=== PATIENT | female | born 1990 | race Caucasian/White ===

== ENCOUNTER 2022-01-21 10:51 | Outpatient (CLI) | payer MEDICAID, SELFPAY ==
--- NOTE | 2022-01-21 11:00 | CRLHL7_ITS ---
For Patients: As a result of the Century Cures Act, medical imaging exams and procedure reports are released immediately into your electronic medical record. You may view this report before your referring provider. If you have questions, please contact your health care provider. INDICATION: Chronic hypertension COMPARISON: 12/06/2021 TECHNIQUE: Real time breaux scale imaging of the fetus was performed. FINDINGS: Sonographic imaging demonstrates a single living intrauterine gestation. Fetus demonstrates a regular cardiac rate of 142 beats per minute. Fetus has a ceferino breech position. The placenta lies left posterior. Amniotic fluid volume appears normal and there is a single deepest vertical pocket: 5.3 cm. The estimated weight is 1241gm which lies at the 46th %. On the prior OB ultrasound exam dated 12/06/2021 the estimated weight was at the 44th%. BPD 43rd percentile. HC 61st percentile. AC 59th percentile. FL 22nd percentile. The HC/AC ratio measures 1.11 range (1.00-1.21). IMPRESSION: Sonographic gestational age 28 weeks 5 days and sonographic due date 04/10/2022. Good correlation with dates. Normal interval growth. Estimated weight 46th percentile. Abdominal circumference 59th percentile. Dictated by Chip Sandoval MD @ 01/21/2022 11:30:14 AM (Electronically Signed)
== END 2022-01-21 10:52 | disposition home or self-care (01) ==
LOC: US 10:52
PROVIDERS: Visit Provider Obstetrics & Gynecology
DX: O16.3 Unspecified maternal hypertension, third trimester (principal); Z3A.28 28 weeks gestation of pregnancy
CPT/HCPCS: 76816; 86592

== ENCOUNTER 2022-02-04 12:07 | Outpatient (CLI) | payer MEDICAID, SELFPAY | END 2022-02-04 12:08 | disposition home or self-care (01) | LOC: NFLDREF 12:07 | PROVIDERS: Visit Provider Registered Nurse | DX: Z87.440 Personal history of urinary (tract) infections (principal) | CPT/HCPCS: 87086 ==

== ENCOUNTER 2022-02-18 07:58 | Outpatient (CLI) | payer MEDICAID, SELFPAY ==
--- NOTE | 2022-02-18 07:45 | CRLHL7_ITS ---
For Patients: As a result of the Century Cures Act, medical imaging exams and procedure reports are released immediately into your electronic medical record. You may view this report before your referring provider. If you have questions, please contact your health care provider. INDICATION: CHRONIC HYPERTENSION TECHNIQUE: Real time breaux scale imaging of the fetus was performed. COMPARISON: 01/21/2022 FINDINGS: Sonographic imaging demonstrates a single living intrauterine gestation. Fetus demonstrates a regular cardiac rate of 142 beats per minute. Fetus has a transverse position. The placenta lies left posterior. Amniotic fluid volume appears normal and there is a single deepest pocket of 3.6 cm. The estimated weight is 1993gm which lies at the 47th %. On the prior OB ultrasound dated 12/06/2021 the estimated weight was at the 44th percentile. BPD 43rd percentile. HC 32nd percentile. AC 47th percentile. FL 56th percentile. The fetus was active and demonstrated normal breathing movements. There was normal flexion and extension of the trunk and extremities. IMPRESSION: Normal biophysical profile score 8/8. Sonographic gestational age 32 weeks 4 days and sonographic due date 04/11/2022. Good correlation with dates and normal interval growth. Estimated weight 47th percentile. Abdominal circumference 47th percentile. Dictated by Chip Sandoval MD @ 02/18/2022 9:20:16 AM (Electronically Signed)
== END 2022-02-18 07:59 | disposition home or self-care (01) ==
LOC: US 07:58
PROVIDERS: Visit Provider Registered Nurse
DX: O10.913 Unspecified pre-existing hypertension complicating pregnancy, third trimester (principal); Z3A.32 32 weeks gestation of pregnancy
CPT/HCPCS: 76816; 76819

== ENCOUNTER 2022-02-23 09:13 | Outpatient (CLI) | payer MEDICAID, SELFPAY ==
--- NOTE | 2022-02-23 09:15 | CRLHL7_ITS ---
For Patients: As a result of the Century Cures Act, medical imaging exams and procedure reports are released immediately into your electronic medical record. You may view this report before your referring provider. If you have questions, please contact your health care provider. INDICATION: CHRONIC HYPERTENSION COMPARISON: 02/18/2022 TECHNIQUE: Real time breaux scale imaging of the fetus was performed. Without non-stress testing. FINDINGS: Sonographic imaging demonstrates a single living intrauterine gestation. Fetus demonstrates a regular cardiac rate of 136 beats per minute. Fetus has a vertex position. The amniotic fluid volume appears normal and there is a single deepest pocket measurement of 4.8 cm. The fetus was active and demonstrated normal breathing movements. There was normal flexion and extension of the trunk and extremities. IMPRESSION: Normal biophysical profile score of 8 out of 8. Dictated by Chip Sandoval MD @ 02/23/2022 11:03:35 AM (Electronically Signed)
== END 2022-02-23 09:14 | disposition home or self-care (01) ==
LOC: US 09:13
PROVIDERS: Visit Provider Registered Nurse
DX: O10.919 Unspecified pre-existing hypertension complicating pregnancy, unspecified trimester (principal)
CPT/HCPCS: 76819

== ENCOUNTER 2022-03-04 09:15 | Outpatient (CLI) | payer MEDICAID, SELFPAY ==
--- NOTE | 2022-03-04 09:15 | CRLHL7_ITS ---
For Patients: As a result of the Century Cures Act, medical imaging exams and procedure reports are released immediately into your electronic medical record. You may view this report before your referring provider. If you have questions, please contact your health care provider. INDICATION: chronic hypertension COMPARISON: 02/23/2022 TECHNIQUE: Real time breaux scale imaging of the fetus was performed. Without non-stress testing. FINDINGS: Sonographic imaging demonstrates a single living intrauterine gestation. Fetus demonstrates a regular cardiac rate of 137 beats per minute. Fetus has a ceferino breech position. The amniotic fluid volume appears normal and there is a single deepest pocket measurement of 4.2 cm. The fetus was active and demonstrated normal breathing movements. There was normal flexion and extension of the trunk and extremities. IMPRESSION: Normal biophysical profile score of 8 out of 8. Dictated by Chip Sandoval MD @ 03/04/2022 12:45:34 PM (Electronically Signed)
== END 2022-03-04 09:16 | disposition home or self-care (01) ==
LOC: US 09:16
PROVIDERS: Visit Provider Registered Nurse
DX: O10.919 Unspecified pre-existing hypertension complicating pregnancy, unspecified trimester (principal)
CPT/HCPCS: 76819

== ENCOUNTER 2022-03-09 09:09 | Outpatient (CLI) | payer MEDICAID, SELFPAY ==
--- NOTE | 2022-03-09 09:15 | CRLHL7_ITS ---
For Patients: As a result of the Century Cures Act, medical imaging exams and procedure reports are released immediately into your electronic medical record. You may view this report before your referring provider. If you have questions, please contact your health care provider. INDICATION: CHRONIC HTN COMPARISON: 02/23/2022 TECHNIQUE: Real time breaux scale imaging of the fetus was performed. Without non-stress testing. FINDINGS: Sonographic imaging demonstrates a single living intrauterine gestation. Fetus demonstrates a regular cardiac rate of 148 beats per minute. Fetus has a ceferino breech position. The amniotic fluid volume appears normal and there is a single deepest pocket measurement of 5.8 cm. The fetus was active and demonstrated normal breathing movements. There was normal flexion and extension of the trunk and extremities. IMPRESSION: Normal biophysical profile score of 8 out of 8. Dictated by Chip Sandoval MD @ 03/09/2022 10:10:23 AM (Electronically Signed)
== END 2022-03-09 09:10 | disposition home or self-care (01) ==
LOC: US 09:10
PROVIDERS: Visit Provider Registered Nurse
DX: O10.919 Unspecified pre-existing hypertension complicating pregnancy, unspecified trimester (principal)
CPT/HCPCS: 76819

== ENCOUNTER 2022-03-17 11:56 | Outpatient (CLI) | payer MEDICAID, SELFPAY ==
--- NOTE | 2022-03-17 12:15 | CRLHL7_ITS ---
For Patients: As a result of the Century Cures Act, medical imaging exams and procedure reports are released immediately into your electronic medical record. You may view this report before your referring provider. If you have questions, please contact your health care provider. OB ULTRASOUND 03/17/2022 CLINICAL HISTORY: Chronic hypertension. ELLIE by LMP: 04/13/2022. GA: 36 w, 1 d. FINDINGS: BIOPHYSICAL PROFILE: Total score: 8/8. Gross body movements: 2. tone: 2. Respiratory activity: 2. Amniotic fluid: 2. position: Vertex. Cervix: Visualized. Amniotic fluid: 4.5 cm SDP. Placenta: Fundal posterior. heart rate: 141 bpm. BPD: 8.7 cm. 34 w 6 d, 24 percent. HC: 32.1 cm. 36 w 1d, 22 percent. AC: 31.1 cm. 35 w 1 d, 30 percent. FL: 6.9 cm. 35 w 4 d, 29 percent. FL/AC: 22 percent. HC/AC Ratio: 1.0. age by this US: 35 w 3 d. ELLIE by this US: 04/18/2022. EFW: 2641 g., 5 lb., 13 oz. Percentile by ELLIE: 29 percent. IMPRESSION: 1. Single live intrauterine gestation. Composite gestational age of 35 weeks 3 days. ELLIE of 04/18/2022. 2. Biophysical profile score 8/8. SISI POON M.D. Transcribed: 7:59 p.m. [email or web address] be/Dictated by: Sisi Poon MD @ 03/17/2022 6:43:00 PM (Electronically Signed)
== END 2022-03-17 11:57 | disposition home or self-care (01) ==
LOC: US 11:56
PROVIDERS: Visit Provider Registered Nurse
DX: O10.913 Unspecified pre-existing hypertension complicating pregnancy, third trimester (principal); Z3A.36 36 weeks gestation of pregnancy
CPT/HCPCS: 76816; 76819; 87081; 87653

== ENCOUNTER 2022-03-25 09:00 | Outpatient (CLI) | payer MEDICAID, SELFPAY ==
--- NOTE | 2022-03-25 09:15 | CRLHL7_ITS ---
For Patients: As a result of the Century Cures Act, medical imaging exams and procedure reports are released immediately into your electronic medical record. You may view this report before your referring provider. If you have questions, please contact your health care provider. INDICATION: CHRONIC HYPERTENSION COMPARISON: none TECHNIQUE: Real time breaux scale imaging of the fetus was performed. Without non-stress testing. FINDINGS: Sonographic imaging demonstrates a single living intrauterine gestation. Fetus demonstrates a regular cardiac rate of 139 beats per minute. Fetus has a vertex position. The amniotic fluid volume appears normal and there is a single deepest pocket measurement of 4.4 cm. The fetus was active and demonstrated normal breathing movements. There was normal flexion and extension of the trunk and extremities. IMPRESSION: Normal biophysical profile score of 8 out of 8. Dictated by Chip Sandoval MD @ 03/25/2022 9:54:41 AM (Electronically Signed)
== END 2022-03-25 09:01 | disposition home or self-care (01) ==
LOC: US 09:01
PROVIDERS: Visit Provider Registered Nurse
DX: O10.919 Unspecified pre-existing hypertension complicating pregnancy, unspecified trimester (principal)
CPT/HCPCS: 76819

== ENCOUNTER 2022-03-30 16:41 | Inpatient (IN) | payer MEDICAID, SELFPAY ==
[2022-03-30] VITALS (11 sets, daily range): BP systolic 106–138; BP diastolic 59–87; PULSE 71–88; RESP 16; TEMP 36.5–36.7; BMI 32.0
[2022-03-30] MEDS: miSOPROStoL 25 MCG/0.25 TABLET VAGINAL ×2 (17:20→21:27)
--- NOTE | 2022-03-30 17:33 | P.LDBA_ITS ---
Subjective History of Present Illness Time Seen by Provider: 17:34 Date Seen: 03/30/22 Narrative: Patient is being admitted to Labor and Delivery for cervical ripening in preparation for induction of labor secondary to chronic hypertension and history of DVT.. She is a 31 year old at 38 1/7 weeks gestation. Her full history and physical was dictated by Dr. Rapp on 03/25/2022. Please see this for details. Last heparin dose was yesterday morning. Patient did not realize she was supposed to take her evening dose last night. Feels well. Fetus is active. OB - H&P: Exam Physical Exam: Vital signs: Pulse BP 79 106/64 03/30/22 16:59 03/30/22 16:59 Constitutional: Constitutional: no acute distress Routine HEENT Exam: Head: Present atraumatic Detailed Labor and Delivery Exam: Patient Gravid: yes Dilation (cm): 2 Effacement (%): 60 Cervix position: posterior Consistency: medium Fetus (Single): Station: -2 (ballotable) Heart Rate Baseline: 130 Monitor Accelerations: Present Monitor Decelerations: None Special Loan Officer Variability: Average (6-10) Routine Extremities Exam: Extremities: Absent calf tenderness or pedal edema Comments: bruising on right upper arm from heparin injections OB - Problem Based A/P Additional Plan (1) Chronic hypertension complicating or reason for care during : Problem details: currently not requiring medications Status: Acute (2) History of DVT (deep vein thrombosis): Problem details: off heparin now Status: Acute Plan: Check coags on admission. Lovenox 40 mg SQ daily beginning 24 hours after delivery, continuing for 6 weeks . (3) H/O rapid labor: Status: Acute (4) History of hemorrhage: Problem details: plan for 800 mcg rectal misoprostol and 1 g TXA after delivery of Status: Acute Delivery/Labor/Induction Plan Plan: induction Induction method: per misoprostol protocol
[2022-03-30 18:00] LABS: Hematocrit 36.1 % (33.0-51.0); Hemoglobin* 12.4 gm/dL (12.0-16.0); Lymphocytes Percent Auto 20.7 % (20-44); Mean Corpuscular HGB Conc 34 gm/dL (32-36); Mean Corpuscular Hemoglobin 31 pg (26-34); Mean Corpuscular Volume 89 fL (80-100); Monocytes Percent Auto 10.3 % (0.0-11.0); Neutrophils Percent Auto 66.8 % (42.0-72.0); Platelet Count* 150 K/uL (140-440); Red Blood Count 4.07 m/uL (4.00-5.20); White Blood Count* 10.72 K/uL (4.50-11.00)
[2022-03-30 18:01] LABS: Basophils Percent Auto 0.3 % (0.0-3.0); Eosinophils Percent Auto 1.5 % (0.0-7.0); Slide Review Reflex No
[2022-03-30 18:05] LABS: Prothrombin Time 12.6 Seconds
[2022-03-30 18:06] LABS: Partial Thromboplastin Time* 23 Seconds (23-33)
[2022-03-30 18:28] LABS: SARS PCR* Negative SARS-CoV-2 (Negative)
[2022-03-31] VITALS (64 sets, daily range): BP systolic 80–182; BP diastolic 47–83; PULSE 61–187; RESP 14–16; TEMP 36.5–36.8; O2SAT 92–100
[2022-03-31] MEDS: miSOPROStoL 25 MCG/0.25 TABLET VAGINAL ×2 (03:52→07:46)
[2022-03-31] MEDS: LACTATED RINGERS 1000 ML 1,000 ML 900 ML IV (10:39)
[2022-03-31] MEDS: ROPIVACAINE 0.2% 100 ml 100 ML 12 MG EPIDURAL (11:12)
[2022-03-31] MEDS: LIDOCAINE 2% (PF) 5 ML VIAL EPIDURAL (11:12)
[2022-03-31] MEDS: PHENYLEPHRINE 100 MCG/ML SYRINGE IVP ×2 (11:25→13:09)
--- NOTE | 2022-03-31 11:25 | PM.ANBPRC ---
[facility] Medical History (Updated 03/30/22 @ 17:44 by Janie Pepe MD) Depression History of DVT (deep vein thrombosis) Family History (Updated 03/25/22 @ 09:51 by Iris Rapp MD) Mother Alcohol dependence Drug dependence Sister Alcohol dependence Drug dependence Social History (Updated 03/25/22 @ 09:55 by Iris Rapp MD) Narrative: Lives in [place] with BF and 1 yo. No smoking, drinking, or ilicit drug use. Smoking Status: Never smoker Meds Home Medications and Allergies Home Medications Medication Instructions Recorded Confirmed Type vitamin 1 tab PO QDAY 01/05/22 03/30/22 History no.76-iron,carbonyl 29 mg iron-folic acid 1 mg tablet (Prenatabs Rx) calcium carbonate 200 mg calcium 200 mg PO BID 02/04/22 03/30/22 History (500 mg) chewable tablet (Tums) Allergies Allergy/AdvReac Type Severity Reaction Status Date / Time No Known Allergies Allergy Verified 03/31/22 09:43 Results Labs Labs: Laboratory Results - last 24 hr 03/30/22 03/30/22 03/30/22 16:51 17:35 17:35 WBC 10.72 RBC 4.07 Hgb 12.4 Hct 36.1 MCV 89 MCH 31 MCHC 34 Plt Count 150 Neut % (Auto) 66.8 Lymph % (Auto) 20.7 Hopkins % (Auto) 10.3 Eos % (Auto) 1.5 Baso % (Auto) 0.3 Neut # (Auto) 7.20 H Lymph # (Auto) 2.20 Hopkins # (Auto) 1.10 H Eos # (Auto) 0.20 Baso # (Auto) 0.00 INR APTT SARS-CoV-2 (PCR) Negative SARS-CoV-2 Blood Type B Positive Antibody Screen NEGATIVE 03/30/22 17:35 WBC RBC Hgb Hct MCV MCH MCHC Plt Count Neut % (Auto) Lymph % (Auto) Hopkins % (Auto) Eos % (Auto) Baso % (Auto) Neut # (Auto) Lymph # (Auto) Hopkins # (Auto) Eos # (Auto) Baso # (Auto) INR 0.90 L APTT 23 SARS-CoV-2 (PCR) Blood Type Antibody Screen Vital Signs Vital Signs: Last Vital Signs Temp 98.2 F 03/31/22 10:04 Pulse 111 H 03/31/22 11:25 Resp 16 03/31/22 10:04 BP 95/47 L 03/31/22 11:25 Pulse Ox 98 03/31/22 11:22 Weight: 107.048 kg Height: 182.88 cm Anesthesia Procedures Epidural Insertion Patient Location: OB Start Time: 10: Stop Time: 11:30 Start Date: 03/31/22 Stop Date: 03/31/22 Reason for Block: primary anesthetic Patient Position: sitting Performed By: Chip Recio Preanesthetic Checklist: IV checked, risks and benefits discussed, surgical consent, monitors and equipment checked, pre-op evaluation, timeout performed and anesthesia consent Prep: chlorhexidine gluconate Monitoring: blood pressure monitoring, continuous pulse oximetry and heart rate Approach: midline Vertebral Space: lumbar (1-5) Needle Type: Tuohy needle Injection Technique: continuous catheter (continuous catheter) Needle gauge: 17 Needle Length (cm): 10 cm Needle Insertion Depth (cm): 6 Catheter Gauge: 19 Catheter Type: multi-orifice Catheter at skin depth (cm): 12 Test Dose Result: negative and lidocaine 1.5% with epinephrine 1 to 200,000
[2022-03-31] MEDS: LACTATED RINGERS 1000 ML 1,000 ML 125 ML IV (12:52)
[2022-03-31] MEDS: miSOPROStoL 800 MCG/4 TABLET PR (13:52)
[2022-03-31] MEDS: OXYTOCIN 30 unit/500 ML in NS 30 UNIT/500 ML BAG 300 UNIT IVPB (13:55)
--- NOTE | 2022-03-31 15:32 | PM.OBPRCVD ---
Procedure Delivery date: 03/31/22 Procedure Done: Global Procedure Details: The patient is a 31 year-old G 2 P 1-0-0-1 woman admitted on 03/30/2022 at 38 Weeks, 1 Days gestation for induction of labor.? Cervical exam on admission was 2 cm/60 % effaced/-2 station with membranes intact in vertex presentation, which was confirmed on ultrasound.? heart rate demonstrated baseline 130 bpm with moderate variability, positive accelerations, no decelerations; a category 1 tracing.? She had 4 doses of 25 mcg vaginal misoprostol, then progressed into labor. SROM occurred at 11:49 a.m. on 03/31/2022 with clear fluid. ? Labor Analgesia:? Epidural ? Pitocin:? No ? Labor onset:? 10:30 a.m. ? Complete:? 1:35 p.m. ? Pushing:? 1:35 p.m. ? heart tones during second stage were reassuring. ? At 1:46 p.m. a viable female delivered in vertex OA presentation with restitution to LOT over intact perineum via spontaneous vaginal delivery.? was placed on maternal abdomen.? Cord was clamped and cut after a 60+ second delay.? Nose and mouth were bulb suctioned.? weight pending.? 8 at 1 minute and 9 at 5 minutes.? weight 6 lb, 4 oz. Shoulder dystocia: No.? Nuchal cord: Yes, x2, loose. Infant delivered through this ? Placenta delivered spontaneously and complete at 1:51 p.m. with a 3 vessel cord. ? Mother and infant were stable after delivery. ? Lacerations:? Superficial left labial, hemostatic and not requiring repair. 800 mcg of rectal misoprostol was placed after delivery of placenta to prevent hemorrhage. Oxytocin was also used. ? Blood loss: 75 mL. Blood loss measurement type: EBL ? Sponge and needles counts are correct.
[2022-03-31] MEDS: ACETAMINOPHEN 500 MG TABLET 1000 MG PO (19:36)
[2022-04-01 05:00] VITALS: BP 126/80; PULSE 71; RESP 16; TEMP 36.5; O2SAT 94
[2022-04-01] MEDS: IBUPROFEN 600 MG TABLET PO (05:24)
[2022-04-01 07:59] LABS: Hemoglobin* 12.4 gm/dL (12.0-16.0)
[2022-04-01 08:45] VITALS: BP 125/80; PULSE 66; RESP 16; TEMP 36.4; O2SAT 97
[2022-04-01] MEDS: DOCUSATE SODIUM 100 MG CAPSULE PO (08:45)
--- NOTE | 2022-04-01 08:56 | P.DS_ITS ---
DS: Providers Provider Time Seen by Provider: 08:57 Date Seen: 04/01/22 Date of admission: 03/30/22 16:41 Primary care physician: Not a Local Provider Admitting Clinician: Janie Pepe MD Attending Physician on discharge: Christie Hernandez CNM Date of Discharge: 04/01/22 Exam Const: Vital Signs, click to edit/add: Vital Signs - 24 hr 03/31/22 10:02 03/31/22 10:04 03/31/22 10:46 Temperature 98.2 F Pulse Rate 93 83 Pulse Rate [Pulse Oximeter] Respiratory Rate 16 Blood Pressure 133/80 127/69 Blood Pressure [Le ft Arm] Pulse Oximetry Oxygen Delivery Me thod 03/31/22 10:56 03/31/22 10:57 03/31/22 10:57 Temperature Pulse Rate Pulse Rate [Pulse Oximeter] Respiratory Rate Blood Pressure 138/71 Blood Pressure [Le ft Arm] Pulse Oximetry 93 94 Oxygen Delivery Me thod 03/31/22 10:57 03/31/22 11:01 03/31/22 11:06 Temperature Pulse Rate 83 Pulse Rate [Pulse Oximeter] Respiratory Rate Blood Pressure Blood Pressure [Le ft Arm] Pulse Oximetry 100 100 Oxygen Delivery Me thod 03/31/22 11:11 03/31/22 11:15 03/31/22 11:15 Temperature Pulse Rate 96 Pulse Rate [Pulse Oximeter] Respiratory Rate Blood Pressure 125/62 Blood Pressure [Le ft Arm] Pulse Oximetry 99 Oxygen Delivery Me thod 03/31/22 11:17 03/31/22 11:17 03/31/22 11:17 Temperature Pulse Rate 116 H Pulse Rate [Pulse Oximeter] Respiratory Rate Blood Pressure 112/54 L Blood Pressure [Le ft Arm] Pulse Oximetry 99 Oxygen Delivery Me thod 03/31/22 11:18 03/31/22 11:20 03/31/22 11:22 Temperature Pulse Rate 101 H 115 H Pulse Rate [Pulse Oximeter] Respiratory Rate Blood Pressure 101/54 L 116/57 L Blood Pressure [Le ft Arm] Pulse Oximetry 98 Oxygen Delivery Me thod 03/31/22 11:22 03/31/22 11:25 03/31/22 11:25 Temperature Pulse Rate 93 111 H Pulse Rate [Pulse Oximeter] Respiratory Rate Blood Pressure 117/60 95/47 L Blood Pressure [Le ft Arm] Pulse Oximetry Oxygen Delivery Me thod 03/31/22 11:26 03/31/22 11:27 03/31/22 11:27 Temperature Pulse Rate 98 Pulse Rate [Pulse Oximeter] Respiratory Rate Blood Pressure 80/48 L Blood Pressure [Le ft Arm] Pulse Oximetry 92 92 Oxygen Delivery Me thod 03/31/22 11:29 03/31/22 11:29 03/31/22 11:31 Temperature Pulse Rate 69 Pulse Rate [Pulse Oximeter] Respiratory Rate Blood Pressure 125/83 119/58 L Blood Pressure [Le ft Arm] Pulse Oximetry Oxygen Delivery Me thod 03/31/22 11:31 03/31/22 11:32 03/31/22 11:34 Temperature Pulse Rate 69 68 Pulse Rate [Pulse Oximeter] Respiratory Rate Blood Pressure 118/56 L 110/53 L Blood Pressure [Le ft Arm] Pulse Oximetry Oxygen Delivery Me thod 03/31/22 11:34 03/31/22 11:40 03/31/22 11:50 Temperature Pulse Rate 82 100 94 Pulse Rate [Pulse Oximeter] Respiratory Rate Blood Pressure 110/56 L 111/56 L Blood Pressure [Le ft Arm] Pulse Oximetry Oxygen Delivery Me thod 03/31/22 11:55 03/31/22 12:00 03/31/22 12:00 Temperature Pulse Rate 80 85 Pulse Rate [Pulse Oximeter] Respiratory Rate Blood Pressure 111/56 L 118/63 Blood Pressure [Le ft Arm] Pulse Oximetry Oxygen Delivery Me thod 03/31/22 12:07 03/31/22 12:07 03/31/22 12:10 Temperature Pulse Rate 68 89 Pulse Rate [Pulse Oximeter] Respiratory Rate Blood Pressure 119/56 L 121/67 Blood Pressure [Le ft Arm] Pulse Oximetry Oxygen Delivery Me thod 03/31/22 12:16 03/31/22 12:16 03/31/22 12:20 Temperature Pulse Rate 90 85 Pulse Rate [Pulse Oximeter] Respiratory Rate Blood Pressure 154/74 H 138/58 L Blood Pressure [Le ft Arm] Pulse Oximetry Oxygen Delivery Me thod 03/31/22 12:25 03/31/22 12:41 03/31/22 12:44 Temperature Pulse Rate 79 75 Pulse Rate [Pulse Oximeter] Respiratory Rate Blood Pressure 132/63 101/56 L 106/58 L Blood Pressure [Le ft Arm] Pulse Oximetry Oxygen Delivery Me thod 03/31/22 12:44 03/31/22 13:07 03/31/22 13:07 Temperature Pulse Rate 74 78 Pulse Rate [Pulse Oximeter] Respiratory Rate Blood Pressure 97/57 L Blood Pressure [Le ft Arm] Pulse Oximetry Oxygen Delivery Me thod 03/31/22 13:13 03/31/22 13:29 03/31/22 13:29 Temperature Pulse Rate 71 90 Pulse Rate [Pulse Oximeter] Respiratory Rate Blood Pressure 122/66 139/63 Blood Pressure [Le ft Arm] Pulse Oximetry Oxygen Delivery Me thod 03/31/22 13:44 03/31/22 13:59 03/31/22 14:17 Temperature Pulse Rate 187 H 86 82 Pulse Rate [Pulse Oximeter] Respiratory Rate Blood Pressure 141/81 H 136/63 182/63 H Blood Pressure [Le ft Arm] Pulse Oximetry Oxygen Delivery Me thod 03/31/22 14:18 03/31/22 14:29 03/31/22 14:44 Temperature Pulse Rate 74 79 75 Pulse Rate [Pulse Oximeter] Respiratory Rate Blood Pressure 129/60 129/61 133/64 Blood Pressure [Le ft Arm] Pulse Oximetry Oxygen Delivery Me thod 03/31/22 14:59 03/31/22 15:14 03/31/22 15:14 Temperature Pulse Rate 66 66 Pulse Rate [Pulse Oximeter] Respiratory Rate Blood Pressure 137/62 139/64 Blood Pressure [Le ft Arm] Pulse Oximetry Oxygen Delivery Me thod 03/31/22 15:29 03/31/22 15:29 03/31/22 15:44 Temperature Pulse Rate 76 Pulse Rate [Pulse Oximeter] Respiratory Rate Blood Pressure 139/64 128/66 Blood Pressure [Le ft Arm] Pulse Oximetry Oxygen Delivery Me thod 03/31/22 15:44 03/31/22 15:59 03/31/22 15:59 Temperature Pulse Rate 76 90 Pulse Rate [Pulse Oximeter] Respiratory Rate Blood Pressure 127/60 Blood Pressure [Le ft Arm] Pulse Oximetry Oxygen Delivery Me thod 03/31/22 17:43 03/31/22 21:08 03/31/22 23:07 Temperature 98.3 F 97.9 F 97.7 F Pulse Rate Pulse Rate [Pulse Oximeter] 86 88 61 Respiratory Rate 16 16 16 Blood Pressure Blood Pressure [Le ft Arm] 128/82 130/79 100/66 Pulse Oximetry 99 97 94 Oxygen Delivery Me thod Room Air Room Air Room Air 04/01/22 05:00 Temperature 97.7 F Pulse Rate Pulse Rate [Pulse Oximeter] 71 Respiratory Rate 16 Blood Pressure Blood Pressure [Le ft Arm] 126/80 Pulse Oximetry 94 Oxygen Delivery Me thod Room Air Documenting provider has reviewed patient's vital signs: yes Common normals: no apparent distress, oriented x3, healthy appearing, alert and well nourished General appearance: cooperative, well kempt and well developed Orientation/consciousness: Yes awake, Yes oriented to person, Yes oriented to place and Yes oriented to time HENMT: Common normals: normocephalic and external nose normal Head and scalp: normocephalic Nose: external nose normal Eye: General eye: normal appearance of both eyes Neck & C-Spine: Common normals: full ROM and supple General: normal visual inspection Cervical spine: cervical ROM normal Chest: Common normals: inspection of chest normal and palpation of chest normal Chest: symmetrical chest wall rise Resp: Common normals: normal respiratory effort, no retractions, no use of accessory muscles and clear to auscultation bilaterally Effort & inspection: able to speak in complete sentences and symmetric chest movement Auscultation: clear to auscultation bilaterally Cardio: Common normals: regular rate and regular rhythm Rate: regular rate Rhythm: regular rhythm GI: Common normals: Normal to inspection, nondistended, normoactive bowel sounds present and soft to palpation Inspection: normal to inspection and other (Incision well approximated, no bleeding or discharge. Dressing [dry]) Auscultation: normoactive bowel sounds Palpation: soft : Bimanual exam- vagina & uterus: other (Involuting) Uterus: U/1 and firm Lochia: small Back & Pelvis: Common normals: thoracic and lumbar spine normal to inspection Thoracic spine/upper back: normal to inspection and thoracic ROM normal Lumbar spine/lower back: normal to inspection and lumbar ROM normal Extremity: Common normals: full ROM and no pedal edema General: normal exam except as noted; no edema ([place], +1) Neuro: Common normals: oriented x3 Sensorium/orientation: awake, alert, oriented to person, oriented to place and oriented to time Speech: speech normal Psych: Common normals: mental status grossly normal, thought process normal and speech normal Appearance: grossly normal and well kempt Attitude: calm and engaged Activity/motor behavior: appropriate eye contact Speech: normal speech Thought process: normal thought process Thought content: normal thought content Attention/concentration: attention grossly intact Memory/cognition: memory grossly intact Insight: insight good Judgement: judgment good Skin: Common normals: no rashes or lesions noted General skin exam: no rashes or lesions noted OB - DS: Summary Hospital Course Hospital Course: Debbi is a 31 year old G 4 now P 2 at 38 1/7 weeks gestation that was admitted to the Center on 03/30/22 for IOL r/t chronic hypertension. She had an uncomplicated vaginal delivery. She delivered a viable female infant. She is breast feeding, pt reports it is going well. the patient has done well. No concerns or questions and would like to go home today. Peripartum Data Infant delivery method: Vaginal Laceration description: Superficial (Left Labial, not repaired) complications: none [place] Infant Gender: Female Discharge Plan: Home Time Spent with Patient Time attestation: Total time spent providing and/or coordinating discharge services: Time spent: Less than 30 minutes Discharge Plan Discharge Disposition: Home, Self-Care Date of Admission: 03/30/22 16:41 Attending Provider on Discharge: Christie Hernandez Primary Care Provider: Provider,Not a Local Condition: Stable Anticipated Discharge Date/Time: 04/01/22 14:00 Discharge Medications: New docusate sodium 100 mg Capsule 100 mg PO DAILY PRNQty: 100 0RF Rx Instructions: Take 1 cap 1-2 times a day as needed for constipation enoxaparin 40 mg/0.4 mL Syringe 40 mg subcut Q24H 42 Days Qty: 16.8 0RF ibuprofen 600 mg Tablet 600 mg PO Q6H PRNQty: 60 0RF acetaminophen 500 mg Tablet 1,000 mg PO Q6H PRNQty: 0 0RF Continued Prenatabs Rx 29 mg iron- 1 mg tablet 1 tab PO QDAY Label Comments: TAKE 1 TABLET BY MOUTH EVERY DAY calcium carbonate [Tums] 200 mg calcium (500 mg) tablet,chewable 200 mg PO BID Discontinued heparin (porcine) 10,000 unit/mL solution 10,000 unit subcut Q12H Qty: 100 0RF Discharge Orders: Discharge Order (Routine); Ordered 04/01/22 Ordered By: Christie Hernandez Patient Education: OB High Blood Pressure DC, OB Vaginal/Breast Feeding Activity Level: Activity as Tolerated Discharge Diet: Regular Follow Up Appointments: [facility] [Provider Group] Forms: [employer] Info Instructions
[2022-04-01 12:55] VITALS: BP 104/70; PULSE 70; RESP 16; TEMP 36.3; O2SAT 97
[2022-04-01 15:50] VITALS: BP 128/85; PULSE 71; RESP 16; TEMP 36.4; O2SAT 97
[2022-04-01] MEDS: ENOXAPARIN 40 MG/0.4 ML INJ SUBCUT (16:08)
== END 2022-04-01 16:40 | disposition home or self-care (01) | DRG 807 ==
LOC: OB OUT 17:04 → OB 17:05
PROVIDERS: Obstetrics & Gynecology; Admitting Provider Obstetrics & Gynecology; Visit Provider Obstetrics & Gynecology
DX: O10.92 Unspecified pre-existing hypertension complicating childbirth (principal); Z37.0 Single live birth; Z86.718 Personal history of other venous thrombosis and embolism; Z3A.38 38 weeks gestation of pregnancy
CPT/HCPCS: 1967; 36415; 59200; 85018; 85025; 85610; 85730; 86850; 86900; 86901; 87635; 99213; A9270; J1650; J2370; J2795; J7120

== ENCOUNTER 2023-05-09 14:49 | Outpatient (CLI) | payer MEDICAID, SELFPAY ==
--- NOTE | 2023-05-09 15:00 | CRLHL7_ITS ---
For Patients: As a result of the Cures Act, medical imaging exams and procedure reports are released immediately into your electronic medical record. You may view this report before your referring provider. If you have questions, please contact your health care provider. INDICATION: First trimester dating. TECHNIQUE: Ultrasound OB pelvis transvaginal. Real-time breaux-scale imaging of the pelvis was performed. COMPARISON: None. FINDINGS: Intrauterine gestational sac: Present. Embryo present: Yes. Embryo cardiac activity: 173 BPM. [place] rump Length: 1.8 cm. Sonographic gestational age: 8 weeks 2 days. Sonographic estimated due date: December 17, 2023. Yolk sac: Normal. Perigestational hemorrhage: Present measuring 15 x 13 x 3 mm. Ovaries and adnexae: Unremarkable. No suspicious lesions or fluid collections. IMPRESSION: Single viable intrauterine with an estimated ultrasound age of 8 weeks 2 days. Small to moderate size subchorionic hemorrhage. No other abnormality. Dictated by Brett Mahoney MD @ 05/10/2023 4:21:24 PM (Electronically Signed)
== END 2023-05-09 14:50 | disposition home or self-care (01) ==
LOC: US 14:49
PROVIDERS: PCP Family Medicine; Visit Provider Registered Nurse
DX: Z34.91 Encounter for supervision of normal pregnancy, unspecified, first trimester (principal); Z3A.08 8 weeks gestation of pregnancy
CPT/HCPCS: 76817; 82565; 82570; 84156; 84450; 84460; 84520; 86703; 86706; 86803; 86850; 86900; 86901; 87086; 87340; 87491; 87591

== ENCOUNTER 2023-05-09 16:08 | Outpatient (CLI) | payer MEDICAID, SELFPAY ==
[2023-05-09 21:48] LABS: Chlamydia DNA Amplified* NOT DETECTED (No Detected); GC DNA Amplified* NOT DETECTED (No Detected)
== END 2023-05-09 16:09 | disposition home or self-care (01) ==
PROVIDERS: PCP Family Medicine; Visit Provider Registered Nurse
DX: Z34.90 Encounter for supervision of normal pregnancy, unspecified, unspecified trimester (principal); Z3A.08 8 weeks gestation of pregnancy
CPT/HCPCS: 82565; 82570; 84156; 84450; 84460; 84520; 86592; 86703; 86704; 86706; 86762; 86787; 86803; 86850; 86900; 86901; 87086; 87340; 87491; 87591

== ENCOUNTER 2023-06-13 13:05 | Outpatient (CLI) | payer MEDICAID, SELFPAY | END 2023-06-13 13:06 | disposition home or self-care (01) | LOC: NFLDREF 13:06 | PROVIDERS: PCP Family Medicine; Visit Provider Obstetrics & Gynecology | DX: Z34.91 Encounter for supervision of normal pregnancy, unspecified, first trimester (principal); Z3A.13 13 weeks gestation of pregnancy; R74.01 Elevation of levels of liver transaminase levels | CPT/HCPCS: 80076; 84450; 84460 ==

== ENCOUNTER 2023-09-26 12:11 | Outpatient (CLI) | payer MEDICAID, SELFPAY ==
--- NOTE | 2023-09-26 12:15 | US_ITS ---
Patient: RON THOMAS Facility:?[facility] Patient ID:?[id number] Site Patient ID:?[id number]. Site :?[id number] Study:?US-OB Pelvis OB F/U-09/26/2023 1:24:32 PM Ordering Physician:Iris Gonzalez Final Report: OB ULTRASOUND CLINICAL HISTORY: CHT, growth. COMPARISON: 08/02/2023. LMP: 03/08/2023. ELLIE by LMP: 12/13/2023. GA: 28 w, 6 d. INDICATION: CHT ? growth. CERVIX: Visualized. Measurement: 4.5 cm. POSITIONING: Breech. AMNIOTIC FLUID: 4.4 cm. PLACENTA: Technique: Transabdominal. PLACENTA POSITION: Posterior, left wall. Biometry: BPD: 6.8 cm. 27 w, 2 d, 4.9%. HC: 26.0 cm. 28 w, 2 d, 7.9%. AC: 23.3 cm. 27 w, 4 d, 11.7%. FL: 5.4 cm. 28 w, 3 d, 24.1%. FL/AC ratio: 23.10%. HC/AC ratio: 1.12. EFW: 1150 g. Weight: 2 lbs, 9 oz. age by this US: 27 w, 6 d. ELLIE by this US: 12/20/2023. Percentile by ELLIE: 11.8%. Comment: Note, BPD measuring in 4.9% and HC 7.9%. However, overall EFW 11.8%. IMPRESSION: 1. Estimated weight is at the 12th percentile. 2. BPD 5th percentile, HC 8th percentile. Anibal Darling M.D. Body/Diagnostic Radiologist [email or web address]/hans D& Transcribed: 10:25 a.mAxel maxwell/Dictated by: Anibal Darling MD @ 09/27/2023 10:16:00 AM Signed by:?Anibal Darling MD @09/27/2023 10:29:25 AM (Electronic Signature)
== END 2023-09-26 12:12 | disposition home or self-care (01) ==
LOC: US 12:11
PROVIDERS: PCP Family Medicine; Visit Provider Obstetrics & Gynecology
DX: Z34.93 Encounter for supervision of normal pregnancy, unspecified, third trimester (principal); Z3A.28 28 weeks gestation of pregnancy; Z86.79 Personal history of other diseases of the circulatory system
CPT/HCPCS: 76816; 86592

== ENCOUNTER 2023-10-02 19:57 | Emergency (ER) | payer MEDICAID, SELFPAY ==
[2023-10-02 20:28] VITALS: BP 135/84; PULSE 83; RESP 16; TEMP 36.8; O2SAT 100; BMI 32.1
--- NOTE | 2023-10-02 20:28 | US_ITS ---
Patient: RON THOMAS Facility:?[facility] Patient ID:?[id number] Site Patient ID:?[id number]. Site :?1990 Study:?US-Extremity Left LEV LT-10/02/2023 9:40:01 PM Ordering Physician:?CEFERINO LOZANO M.D. Final Report: INDICATION: Leg Pain, history of deep venous thrombosis, has similar symptoms TECHNIQUE: Ultrasound venous duplex left lower extremity. Real-time breaux-scale (B mode 2D), color Doppler, and spectral Doppler imaging were performed with compression and augmentation. COMPARISON: None FINDINGS: Deep veins: The left common femoral, femoral, popliteal, and visualized calf veins are fully compressible, demonstrate normal color flow, and normal response to mechanical augmentation. The Duplex Doppler waveforms are normal in appearance. Superficial veins: The visualized greater saphenous and superficial veins of the leg and calf are unremarkable. Soft tissue: No masses or cysts are identified. No adenopathy is seen. IMPRESSION: 1. No sonographic evidence of acute deep venous thrombosis seen. Dictated by: Sidney Knox MD @ 10/02/2023 23:04:13 Signed by:?Sidney Knox MD @10/02/2023 11:04:13 PM (Electronic Signature)
[2023-10-02 23:00] VITALS: BP 133/81; PULSE 76; RESP 16; O2SAT 99
--- NOTE | 2023-10-02 23:31 | ED_ITS ---
HPI - General Adult General Time Seen by Provider: 23:15 Date Seen: 10/02/23 Chief complaint: Lower Extremity Swelling Stated complaint: PCP ref-possible blood clot L leg Time Seen by Provider: 10/02/23 23:19 Source: patient Limitations: no limitations History of Present Illness HPI narrative: Patient is a 32-year-old female who is currently 30 weeks who presents to the emergency department for evaluation of left leg pain. Patient reports history of DVT and is currently on Lovenox daily. Patient reports that she developed some left leg pain since yesterday. Patient describes the pain as an achy sensation in her left posterior lateral thigh as well as a tightness behind her knee. Patient denies any trauma or injury. Patient reports that she wanted to make sure everything was okay given her history of DVTs in the past. Patient denies any lower extremity edema or calf tenderness. Denies any fever, chills, chest pain, shortness of breath, abdominal pain. No other complaints. Related Data Home Medications Medication Instructions Recorded Confirmed vitamin 1 tab PO QDAY 01/05/22 09/26/23 no.76-iron,carbonyl 29 mg iron-folic acid 1 mg tablet (Prenatabs Rx) calcium carbonate (Tums) 200 mg PO BID 06/13/23 09/26/23 Previous Rx's Medication Instructions Recorded ondansetron HCl 4 mg tablet 4 mg PO BID PRN nausea and 03/27/23 vomiting #30 tabs sumatriptan succinate 25 mg tablet See Rx Instructions PO .COMPLEX 03/27/23 #14 tabs enoxaparin 40 mg/0.4 mL 40 mg (0.4 mL) subcut Q24H #4 mL 04/18/23 subcutaneous syringe (Lovenox) mv-mn no.97-folic 180 mcg-dha 25 1 tab PO .q day #90 tabs 07/19/23 mg-herb no.293 25 mg chewable tablet (Alive Daily Support ) omeprazole 20 mg capsule,delayed 20 mg PO QDAY 12 weeks #84 caps 08/29/23 release Allergies Allergy/AdvReac Type Severity Reaction Status Date / Time No Known Allergies Allergy Verified 09/26/23 13:07 Review of Systems Narrative: General: No fevers or chills Skin: No rash or diaphoresis Eyes: No eye redness or discharge Ears/Nose/Throat: No rhinorrhea or nasal congestion Respiratory: No cough or shortness of breath Cardiovascular: No chest pain or palpitations Gastrointestinal: No abdominal pain, nausea, vomiting, or diarrhea Genitourinary: No urinary frequency, hematuria, or dysuria Musculoskeletal: + left leg pain, no edema or calf tenderness Neurologic: No numbness or weakness Hematologic/Lymphatic/Immunologic: No leg swelling, no easy bruising/bleeding Endocrine: No polyuria/polydipsia PFSH PFSH Medical History Miscarriage ?O03.9 - Complete or unspecified spontaneous without complication (ICD-10) History of DVT (deep vein thrombosis) ?Z86.718 - Personal history of other venous thrombosis and embolism (ICD-10) History of hemorrhage ?Z87.59 - Personal history of other complications of , childbirth and the puerperium (ICD-10) Depression ?F32.A - Depression, unspecified (ICD-10) Chronic hypertension complicating or reason for care during ?O10.919 - Unspecified pre-existing hypertension complicating , unspecified trimester (ICD-10) Family History Mother Alcohol dependence Drug dependence Sister Alcohol dependence Drug dependence Social History Narrative: Lives in [place] with BF and 1 yo. No smoking, drinking, or ilicit drug use. Smoking Status: Never smoker Little interest or pleasure in doing things: not at all Feeling down, depressed, or hopeless: not at all Exam Narrative: Exam Narrative: General: Afebrile, no acute distress HEENT: Normocephalic, atraumatic, conjunctiva normal. MMM Neck: non-tender, supple Cardio: regular rate. regular rhythm Resp: Normal work of breathing, no respiratory distress, lungs clear bilaterally, no wheezing, rhonchi, rales Chest/Back: no visual signs of trauma, no CVA tenderness Abdomen: soft, non distension, no tenderness, no peritoneal signs Neuro: alert and fully oriented. CN II-XII grossly intact. Grossly normal strength and sensation in all extremities. MSK: no deformities. Normal range of motion, +TTP posterior/lateral thigh, no mass or bulge behind knee, no calf tenderness, no edema Integumentary/Skin: no rash visualized, normal color Psych: normal affect, normal behavior Const: Vital Signs, click to edit/add: Vital Signs - 24 hr 10/02/23 20:28 Temperature 98.3 F Pulse Rate [Pulse Oximeter] 83 Respiratory Rate 16 Blood Pressure [Le ft Upper Arm] 135/84 Pulse Oximetry 100 Oxygen Delivery Me thod Room Air Course Course ED Course: 32-year-old female past medical history of DVT currently on Lovenox, currently 30 weeks who presents to the emergency department with 1 day history of left leg pain. Patient denies any lower extremity edema, calf tenderness. Differential diagnosis includes but is not limited to musculoskeletal/inflammatory versus DVT versus strain verses popliteal cyst versus less likely cellulitis. Upon arrival patient is nontoxic appearing, afebrile, no distress. I personally reviewed and interpreted ultrasound of the left lower extremity which is unremarkable with no evidence of DVT, no evidence of mass or popliteal cyst. Patient with full range of motion on examination, no evidence of cellulitis, hematoma. I discussed results with patient. Patient feels comfortable discharge home with close outpatient follow-up with her primary care provider in [place]. Patient instructed to have repeat ultrasound in 2 weeks if ongoing pain, swelling, any worsening symptoms. Patient understands and agrees the plan. INDICATION: Leg Pain, history of deep venous thrombosis, has similar symptoms TECHNIQUE: Ultrasound venous duplex left lower extremity. Real-time breaux-scale (B mode 2D), color Doppler, and spectral Doppler imaging were performed with compression and augmentation. COMPARISON: None FINDINGS: Deep veins: The left common femoral, femoral, popliteal, and visualized calf veins are fully compressible, demonstrate normal color flow, and normal response to mechanical augmentation. The Duplex Doppler waveforms are normal in appearance. Superficial veins: The visualized greater saphenous and superficial veins of the leg and calf are unremarkable. Soft tissue: No masses or cysts are identified. No adenopathy is seen. IMPRESSION: 1. No sonographic evidence of acute deep venous thrombosis seen. Vital Signs Vital signs: Initial Vital Signs Temperature 98.3 F 10/02/23 20:28 Temperature Source Temporal Artery Scan 10/02/23 20:28 Pulse Rate 83 10/02/23 20:28 Respiratory Rate 16 10/02/23 20:28 Blood Pressure 135/84 10/02/23 20:28 Blood Pressure Mean 101 10/02/23 20:28 Blood Pressure Position Sitting 10/02/23 20:28 Pulse Oximetry 100 10/02/23 20:28 Oxygen Delivery Method Room Air 10/02/23 20:28 Vital Signs Temperature 98.3 F 10/02/23 20:28 Pulse Rate 83 10/02/23 20:28 Respiratory Rate 16 10/02/23 20:28 Blood Pressure 135/84 10/02/23 20:28 Pulse Oximetry 100 10/02/23 20:28 Oxygen Delivery Method Room Air 10/02/23 20:28 Temperature 98.3 F 10/02/23 20:28 Pulse Rate 83 10/02/23 20:28 Respiratory Rate 16 10/02/23 20:28 Blood Pressure 135/84 10/02/23 20:28 Pulse Oximetry 100 10/02/23 20:28 Oxygen Delivery Method Room Air 10/02/23 20:28 Discharge Plan Discharge Clinical Impression: Left leg pain, , History of DVT (deep vein thrombosis) Patient Disposition: Home, Self-Care Condition: Stable Additional Instructions: Please follow-up with your primary care provider or ob gyn physician assistant in the next 3-5 days for further evaluation and follow-up. Please take Tylenol as needed for pain. If you continue to have pain, swelling, would recommend repeat ultrasound in 2 weeks. Please return to the emergency department if any worsening symptoms, severe pain, swelling, fevers. It was a pleasure taking care of you today. We hope you feel better soon Prescriptions: No Action Prenatabs Rx 29 mg iron- 1 mg tablet 1 tab PO QDAY Patient Comments: TAKE 1 TABLET BY MOUTH EVERY DAY sumatriptan succinate 25 mg tablet See Rx Instructions PO .COMPLEX Qty: 14 12RF Rx Instructions: take 1 tab at onset of headache; if no relief may repeat 1 tab after at least 2 hrs; max = 4 tabs/24 hr PO ondansetron HCl 4 mg tablet 4 mg PO BID PRN (Reason: nausea and vomiting) Qty: 30 1RF Rx Instructions: disp odt if covered calcium carbonate [Tums] 200 mg calcium (500 mg) tablet,chewable 200 mg PO BID Alive Daily Support 180 mcg-25 mg- 25 mg tablet,chewable 1 tab PO .q day Qty: 90 3RF omeprazole 20 mg capsule,delayed release(DR/EC) 20 mg PO QDAY 84 Days Qty: 84 0RF enoxaparin [Lovenox] 40 mg/0.4 mL syringe 40 mg subcut Q24H Qty: 4 12RF Follow Up/Referrals: Celena Mccabe MD [Primary Care Provider] - Stand Alone Forms: [employer]™ Interactive Info Instructions
--- OUTSIDE RECORDS SUMMARY | 2023-10-02 23:31 | XMS_ITS | Encounter Summary ---
Author Name Unknown Organization [facility] Address [address] [place] [id number] Care Team Providers Care Co Founder & Ceo Name Role Phone No Ref-Primary, Physician Primary Care Provider Reason for Referral * (Routine) - Closed Specialty Diagnoses / Procedures Referred By Contac t Referred To Contact Cardiology Diagnoses Personal history of DVT (deep vein thrombosis) Chronic hypertension History of deep venous thrombosis Procedures Echo (TTE) Complete Amado Chester MD [address] [address] [facility] [address] [place] [phone] Referral ID Status Reason Start Date Expiration Date Visits Re quested Visits Authorized [id number] Closed 07/18/2023 07/17/2024 1 1 REPAIRER Reason for Visit * (Routine) - Closed Specialty Diagnoses / Procedures Referred By Contac t Referred To Contact Cardiology Diagnoses Personal history of DVT (deep vein thrombosis) Chronic hypertension History of deep venous thrombosis Procedures Echo (TTE) Amado Toscano MD [address] [place] [id number] [facility] [address] [place] [phone] Referral ID Status Reason Start Date Expiration Date Visits Re quested Visits Authorized [id number] Closed 07/18/2023 07/17/2024 1 1 Encounter Details Date Type Department Care Team (Latest Contact Info) Description 08/02/2023 10:44 AM SAIL REPAIRER - 08/02/2023 11:59 PM SAIL REPAIRER Hospital Encounter [facility] [address] [place] [phone] Amado Chester MD [address] [place] [address] Urmfmusfet History of deep venous thrombosis Discharge Disposition: Home or Self Care Social History Tobacco Use Types Packs/Day Years Used Date Smoking Tobacco: Never Assessed Adolescent Education Answer Date Record ed Getting School Help Needed Not on file 06/14 Estimated Date of Delivery Comme nts Yes 12/13/2023 Based on last me nstrual period of 03/08/2023 Sex and Gender Information Value Date Recorded Sex Assigned at Not on file Gender Identity Not on file Sexual Orientation Not on file documented as of this encounter Medications at Time of Discharge Medication Sig Dispensed Refills Start Date End Date aspirin 81 MG EC tablet Take 81 mg by mouth daily enoxaparin ANTICOAGULANT (LOVENOX) 40 MG/0.4ML syringe Inject 40 mg Subcutaneous daily Vit-Fe Fumarate-FA (PNV PLUS MULTIVITAMIN) 27-1 MG TABS per tablet Take 1 tablet by mouth daily documented as of this encounter Consult Notes * Riana Hampton MBBS - 08/02/2023 1:23 PM CST [facility] Cardiology Consult Patient: Ron Sears Date of : 1990 Age: [age] year old Date of Visit: 08/02/2023 PCP: No Ref-Primary, Physician Due Date: Dec 13, 2023 Delivery: Dear Dr. Mg I had the opportunity to meet with Ron today for a Cardiology Consult and Echocardiography at the [facility] on 08/02/2023 Echo demonstrated :Normal cardiac anatomy. Normal right and left ventricular size and function. heart rate is regular at 152 bpm.No hydrops. I have reviewed the Echo findings. The parents had appropriate questions. I did my best to answer their questions. Plan: The results of the echocardiogram were explained to the patient. She is aware that the study was within normal limits with no major cardiac abnormalities. She is aware of the general limitations of echocardiography. Thank you for allowing me to participate in Ron's care. Feel free to contact me with questions. I spent 10 minutes counseling the patient about her echocardiogram findings. All of this timewas face to face. Dr Riana Hampton [employer] Repairer [facility] REPAIRER documented in this encounter Plan of Treatment Not on file documented as of this encounter Procedures Procedure Name Priority Date/Time Associated Diagnosis Comments ECHO COMPLETE Routine 08/02/2023 1 2:01 PM SAIL REPAIRER History of deep venous thrombosis documented in this encounter Results * ECHO COMPLETE (08/02/2023 12:01 PM SAIL REPAIRER) Anatomical Region Laterality Modality Ultrasound 08/02/2023 10:5 1 AM SAIL REPAIRER Narrative 08/02/2023 11:39 AM SAIL REPAIRER [id number]^AMADO ? Study ID: [id number] ?[facility] ?[facility] ?[address] ?[place] [address] ? Echocardiogram Name: RON SEARS Study Date: 08/02/2023 10:51 AM ? Patient Location: [facility] Gender: Female ?Patient Class: Outpatient : 1990 ? Age: 32 yrs Ordering Provider: AMADO CHESTER Referring Provider: CARMELITA MG Performed By: Markus Castle RDCS Reading Physician: Riana Hampton MD Reason For Study: History of deep venous thrombosis Data: Number of fetuses: This is a carrizales gestation. Due date: 12/13/2023. Gestational age: 21w. Specific Indication: echocardiogram performed for fetus with suspected congenital heart disease. CONCLUSIONS Normal cardiac anatomy. Normal right and left ventricular size and function. heart rate is regular at 152 bpm.No hydrops. No additional echocardiograms are recommended. The results of the echocardiogram were explained to the patient. She is aware that the study was within normal limits with no major cardiac abnormalities. She is aware of the general limitations of echocardiography. Technical Information: A complete two dimensional, MMODE, spectral and color Doppler echocardiogram is performed. The study quality is good. position and segmental anatomy: The fetus in vertex position. The heart is in left chest. The cardiac apex points towards the left. There is normal atrial arrangement, with concordant atrioventricular and ventriculoarterial connections. The abdominal aorta is to the left of the spine. There is a left sided stomach. Systemic and pulmonary veins: The systemic venous return is normal. At least one right and one left pulmonary veins are seen returning to the left atrium. Atria and atrial septum: Normal right atrial size. The left atrium is normal in size. The flap of the foramen ovale opens in to the left atrium. There is laminar cemkd-bn-pyow shunting across the foramen ovale. Atrioventricular valves: The tricuspid valve is normal in appearance and motion. There is no tricuspid insufficiency. The mitral valve is normal in appearance and motion. There is no mitral valve insufficiency. Ventricles and ventricular septum: Normal right ventricular size. Normal right ventricular systolic function. Normal left ventricular size. Normal left ventricular systolic function. No obvious ventricular level shunting. Outflows tracts: Normal great artery relationship. The right ventricular outflow tract is normal in caliber. The pulmonary valve has normal appearance and motion. There is normal flow across the pulmonary valve. There is unobstructed flow through the left ventricular outflow tract. The aortic valve has normal appearance and motion. There is normal flow across the aortic valve. Great arteries: The main pulmonary artery has normal appearance. There is unobstructed flow in the main pulmonary artery. The pulmonary artery bifurcation is normal. There is unobstructed flow in both branch pulmonary arteries. The ductus arteriosus has normal appearance with normal antegrade flow. There is unobstructed antegrade flow in the ascending aorta. The aortic arch appears normal. There is unobstructed antegrade flow in the aortic arch. Effusions and extracardiac findings: No pericardial effusion. No hydrops. cardiac rhythm: heart rate is regular at 152 bpm. Doppler: There is normal flow in the ductus venosus, umbilical artery and umbilical vein. echocardiography cannot rule out small atrial or ventricular septal defects, persistent ductus arteriosus, mild coarctation of the aorta, partial anomalous pulmonary venous return, minor anatomic valve anomalies or coronary artery anomalies. Reading Physician: ?Riana Hampton MD 08/02/2023 11:39 AM Procedure Note Riana Hampton MBBS - 08/02/2023 [id number] Study ID:[id number] [facility] [address] [address] Echocardiogram Name: RON SEARS Study Date: 08/02/2023 10:51 AM Patient Location:[facility] Gender: Female Patient Class:Outpatient : 1990 Age: 32 yrs Ordering Provider: AMADO CHESTER Referring Provider: CARMELITA MG Performed By: Markus Castle RDCS Reading Physician: Riana Hampton MD Reason For Study: History of deep venous thrombosis Data: Number of fetuses: This is a carrizales gestation. Duedate: 12/13/2023. Gestational age: 21w. Specific Indication: echocardiogram performed for fetus with suspected congenital heart disease. CONCLUSIONS Normal cardiac anatomy. Normal right and left ventricular size and function. heart rate is regular at 152 bpm.No hydrops. No additional echocardiograms are recommended. The results of thefetal echocardiogram were explained to the patient. She is aware that the studywas within normal limits with no major cardiac abnormalities. She is aware ofthe general limitations of echocardiography. Technical Information: A complete two dimensional, MMODE, spectral and color Doppler echocardiogram is performed. The study quality is good. position and segmental anatomy: The fetus in vertex position. The heart is in left chest. The cardiacapex points towards the left. There is normal atrial arrangement, withconcordant atrioventricular and ventriculoarterial connections. The abdominal aortais to the left of the spine. There is a left sided stomach. Systemic and pulmonary veins: The systemic venous return is normal. At least one right and one left pulmonary veins are seen returning to the left atrium. Atria and atrial septum: Normal right atrial size. The left atrium is normal in size. The flap ofthe foramen ovale opens in to the left atrium. There is elbtsjkzhycb-fr-ljpr shunting across the foramen ovale. Atrioventricular valves: The tricuspid valve is normal in appearance and motion. There is notricuspid insufficiency. The mitral valve is normal in appearance and motion. Thereis no mitral valve insufficiency. Ventricles and ventricular septum: Normal right ventricular size. Normal right ventricular systolicfunction. Normal left ventricular size. Normal left ventricular systolic function.No obvious ventricular level shunting. Outflows tracts: Normal great artery relationship. The right ventricular outflow tract is normal in caliber. The pulmonary valve has normal appearance and motion.There is normal flow across the pulmonary valve. There is unobstructed flowthrough the left ventricular outflow tract. The aortic valve has normal appearanceand motion. There is normal flow across the aortic valve. Great arteries: The main pulmonary artery has normal appearance. There is unobstructedflow in the main pulmonary artery. The pulmonary artery bifurcation is normal.There is unobstructed flow in both branch pulmonary arteries. The ductusarteriosus has normal appearance with normal antegrade flow. There is unobstructed antegrade flow in the ascending aorta. The aortic arch appears normal.There is unobstructed antegrade flow in the aortic arch. Effusions and extracardiac findings: No pericardial effusion. No hydrops. cardiac rhythm: heart rate is regular at 152 bpm. Doppler: There is normal flow in the ductus venosus, umbilical artery andumbilical vein. echocardiography cannot rule out small atrial or ventricularseptal defects, persistent ductus arteriosus, mild coarctation of the aorta,partial anomalous pulmonary venous return, minor anatomic valve anomalies orcoronary artery anomalies. Reading Physician: Riana Hampton MD 08/02/2023 11:39 AM Amado Chester MD [facility] PEDS ECHO ORDERAB LES documented in this encounter Visit Diagnoses Diagnosis History of deep venous thrombosis Personal history of venous thrombosis and embolism documented in this encounter Care Teams Co Founder & Ceo Relationship Specialty Start Date End Date No Ref-Primary, Physician PCP - General 06/15/23 documented as of this encounter
--- OUTSIDE RECORDS SUMMARY | 2023-10-02 23:31 | XMS_ITS | Referral Summary ---
Author Name Unknown Organization [facility] Address [address] [place] [id number] Care Team Providers Care Tube Bender Hand Name Role Phone No Ref-Primary, Physician Primary Care Provider Amado Chester MD Unavailable [phone] Encounters Date Type Department Care Team Description 08/02/2023 Travel 08/02/2023 2:00 PM APPAREL EMBROIDERY DIGITIZER Office Visit [facility] [place] [address] [place] [phone] Amado Chester MD Suspected anomaly, antepartum, single or unspecified fetus (Primary Dx); Personal history of DVT (deep vein thrombosis); Chronic hypertension in ; History of deep vein thrombosis (DVT) during 08/02/2023 10:44 AM APPAREL EMBROIDERY DIGITIZER - 08/02/2023 11:59 PM APPAREL EMBROIDERY DIGITIZER Hospital Encounter [facility] [place] [address] [place] [phone] Amado Chester MD History of deep venous thrombosis Discharge Disposition: Home or Self Care 08/02/2023 10:44 AM APPAREL EMBROIDERY DIGITIZER - 08/02/2023 11:59 PM APPAREL EMBROIDERY DIGITIZER Hospital Encounter [facility] [address] [place] [phone] Amado Chester MD Urmfmusfet History of deep venous thrombosis Discharge Disposition: Home or Self Care 07/26/2023 Travel 07/18/2023 Travel 07/18/2023 10:42 AM APPAREL EMBROIDERY DIGITIZER - 07/18/2023 11:59 PM APPAREL EMBROIDERY DIGITIZER Hospital Encounter [facility] [place] [address] [place] [phone] Amado Chester MD Personal history of DVT (deep vein thrombosis) Discharge Disposition: Home or Self Care 07/18/2023 11:45 AM APPAREL EMBROIDERY DIGITIZER Office Visit [facility] [place] [address] [place] [address] Amado Chester MD Chronic hypertension in (Primary Dx); History of deep venous thrombosis; History of deep vein thrombosis (DVT) during ; Suspected anomaly, antepartum, single or unspecified fetus 07/17/2023 Travel 07/11/2023 Travel 07/10/2023 PRE VISIT [facility] [address] [place] [address] Dory Franco RN Ultrasound (L2- Hx DVT/Embolism, CHTN, Anx/Dep, Hx PPH); Consult (Hx DVT/Embolism, CHTN, Anx/Dep, Hx PPH) from Last 3 Months Allergies No known active allergies Medications Medication Sig Dispensed Refills Start Date End Date Status enoxaparin ANTICOAGULANT (LOVENOX) 40 MG/0.4ML syringe Inject 40 mg Subcutaneous daily Active aspirin 81 MG EC tablet Take 81 mg by mouth daily Active Vit-Fe Fumarate-FA (PNV PLUS MULTIVITAMIN) 27-1 MG TABS per tablet Take 1 tablet by mouth daily Active Active Problems Problem Noted Date Diagnosed Date Chronic hypertension 07/18/2023 History of deep venous thrombosis 07/18/2023 Estimated Date of Delivery Comme nts Yes 12/13/2023 Based on last me nstrual period of 03/08/2023 Social History Tobacco Use Types Packs/Day Years Used Date Smoking Tobacco: Never Assessed Tobacco Cessation:Counseling Given: Not Answered Adolescent Education Answer Date Record ed Getting School Help Needed Not on file 06/14 Estimated Date of Delivery Comme nts Yes 12/13/2023 Based on last me nstrual period of 03/08/2023 Sex and Gender Information Value Date Recorded Sex Assigned at Not on file Gender Identity Not on file Sexual Orientation Not on file Last Filed Vital Signs Vital Sign Reading Time Taken Comments Blood Pressure 119/82 07/18/2023 12:05 PM APPAREL EMBROIDERY DIGITIZER Pulse 78 07/18/2023 12:05 PM APPAREL EMBROIDERY DIGITIZER Temperature - - Respiratory Rate 18 07/18/2023 12:05 PM APPAREL EMBROIDERY DIGITIZER Oxygen Saturation 99% 07/18/2023 12:05 PM APPAREL EMBROIDERY DIGITIZER Inhaled Oxygen Concentration - - Weight 105.5 kg (232 lb 8 oz) 07/18/2023 12:05 P M APPAREL EMBROIDERY DIGITIZER Height 180.3 cm (5' 11) 07/18/2023 12:05 PM APPAREL EMBROIDERY DIGITIZER Body Mass Index 32.43 07/18/2023 12:05 PM APPAREL EMBROIDERY DIGITIZER Plan of Treatment Not on file Procedures Procedure Name Priority Date/Time Associated Diagnosis Comments [facility] US COMPREHENSIVE SINGLE F/U Routine 08/02/2023 12:04 PM APPAREL EMBROIDERY DIGITIZER History of deep venous thrombosis ECHO COMPLETE Routine 08/02/2023 1 2:01 PM APPAREL EMBROIDERY DIGITIZER History of deep venous thrombosis [facility] US COMPREHENSIVE SINGLE Routine 07/18/2023 12:31 PM APPAREL EMBROIDERY DIGITIZER Personal history of DVT (deep vein thrombosis) HCL PAP SMEAR Routine 11/04/1998 1:18 PM CDT Gynecologic Examination from Last 3 Months or Most Recently Relevant to Health Maintenance Results * [facility] US Comprehensive Single F/U (08/02/2023 12:04 PM APPAREL EMBROIDERY DIGITIZER) Anatomical Region Laterality Modality Ultrasound 08/02/2023 11:4 0 AM APPAREL EMBROIDERY DIGITIZER Impressions 08/02/2023 3:43 PM APPAREL EMBROIDERY DIGITIZER IMPRESSION ----- 1. Carrizales intrauterine at 21w 0d gestational age here for completion of anatomy. 2. The remaining anatomic survey was completed, no anomalies commonly detected by ultrasound were identified within the limits of ultrasound. 3. The amniotic fluid volume appeared normal. Narrative 08/02/2023 3:43 PM APPAREL EMBROIDERY DIGITIZER ?Comp Follow Up ----- Pat. Name: RON SEARS ? Study Date: ??08/02/2023 11:40am Pat. NO: ??[id number] ?Referring ??MD: CARMELITA MG Site: ??[facility] ? Em Physician: ??Jackie Mccarthy [facility] : ??1990 ?Age: ?? 32 ----- INDICATION ----- History of DVT and embolism. Chronic hypertension. Follow-up suboptimal anatomy. METHOD ----- Transabdominal ultrasound examination. View: Sufficient ----- Carrizales . Number of fetuses: 1 DATING ----- ? Date ?Details ?Gest. age ?ELLIE LMP ?03/08/2023 ? 21 w + 0 d ? 12/13/2023 Prior assessment ? 05/09/2023 ? GA: 8 w + 2 d ? 20 w + 3 d ? 12/17/2023 Assigned dating ?Dating performed on 07/18/2023, based on the LMP ?21 w + 0 d ? 12/13/2023 GENERAL EVALUATION ----- Cardiac activity present. FHR 148 bpm. movements present. Presentation cephalic. Placenta Posterior, No Previa, > 2 cm from internal os. Umbilical cord previously studied. Amniotic fluid Amount of AF: normal. MVP 3.9 cm. ANATOMY ----- The following structures appear normal: Face ? Lips. Heart / Thorax ?4-chamber view. RVOT view. LVOT view. Ductal arch view. 3-vessel view. Spine ?Lumbar spine. Sacral spine. Extremities / Skeleton ?Right hand. Left hand. Gender: female. MATERNAL STRUCTURES ----- Cervix ?Suboptimal Right Ovary ?Not examined Left Ovary ?Not examined RECOMMENDATION ----- Thank-you for referring your patient for ultrasound assessment. I discussed the findings on today's ultrasound with the patient. I reviewed the limitations of ultrasound. She also had a echocardiogram today with pediatric cardiology which was normal (please see separate report for full details). Please refer to our consult note from 07/18 for full recommendations on management - recommend assessment of growth every 4 weeks starting at 28 weeks in addition to weekly surveillance starting at 32 weeks should she require antihypertensive agents for management of her chronic hypertension. We presume this follow-up can be performed with your office. Return to primary provider for continued care. If you have questions regarding today's evaluation or if we can be of further service, please contact the [facility]. anomalies may be present but not detected Procedure Note Amado Chester MD - 08/02/2023 Comp Follow Up ----- Pat. Name: RON SEARS Study Date: 08/02/2023 11:40am Pat. NO: [id number] Referring MD: CARMELITA MG Site: [facility] Em Physician: Jackie Mccarthy RDMS : 1990 Age: 32 ----- INDICATION ----- History of DVT and embolism. Chronic hypertension. Follow-up suboptimalanatomy. METHOD ----- Transabdominal ultrasound examination. View: Sufficient ----- Carrizales . Number of fetuses: 1 DATING ----- DateDetailsGest. age ELLIE LMP w + 0 d 12/13/2023 Prior assessment 05/09/2023 GA: 8 w +2 d20 w + 3 d 12/17/2023 Assigned dating Dating performed on 07/18/2023, based onthe LMP 21 w+ 0 d 12/13/2023 GENERAL EVALUATION ----- Cardiac activity present. FHR 148 bpm. movements present. Presentation cephalic. Placenta Posterior, No Previa, > 2 cm from internal os. Umbilical cord previously studied. Amniotic fluid Amount of AF: normal. MVP 3.9 cm. ANATOMY ----- The following structures appear normal: Face Lips. Heart / Thorax 4-chamber view. RVOT view. LVOT view.Ductal arch view. 3-vessel view. Spine Lumbar spine. Sacral spine. Extremities / Skeleton Right hand. Left hand. Gender: female. MATERNAL STRUCTURES ----- Cervix Suboptimal Right Ovary Not examined Left Ovary Not examined RECOMMENDATION ----- Thank-you for referring your patient for ultrasound assessment. I discussed the findings on today's ultrasound with the patient. Ireviewed the limitations of ultrasound. She also had a fetalechocardiogram today with pediatric cardiology which was normal (please see separate report for full details). Please refer to our consult note from 07/18 for full recommendations onpregnancy management - recommend assessment of growth every 4 weeksstarting at 28 weeks in addition to weekly surveillance starting at 32 weeks mina require antihypertensive agents for management of her chronichypertension. We presume this follow-up can be performed with your office. Return to primary provider for continued care. If you have questions regarding today's evaluation or if we can be offurther service, please contact the [facility]. anomalies may be present but not detected IMPRESSION ----- 1. Carrizales intrauterine at 21w 0d gestational age here forcompletion of anatomy. 2. The remaining anatomic survey was completed, no anomaliescommonly detected by ultrasound were identified within the limits ofprenatal ultrasound. 3. The amniotic fluid volume appeared normal. Amado LEIVA [facility] US ORDERABLE S * ECHO COMPLETE (08/02/2023 12:01 PM APPAREL EMBROIDERY DIGITIZER) Anatomical Region Laterality Modality Ultrasound 08/02/2023 10:5 1 AM APPAREL EMBROIDERY DIGITIZER Narrative 08/02/2023 11:39 AM APPAREL EMBROIDERY DIGITIZER [id number]^HENRIK^AMADO ? Study ID: [id number] ?[facility] ?[facility] [place] ?[address] ?[place] [address] ? Echocardiogram Name: RON SEARS Study Date: 08/02/2023 10:51 AM ? Patient Location: [facility] Gender: Female ?Patient Class: Outpatient : 1990 [...] to the left atrium. There is laminar gkqik-yl-lkgz shunting across the foramen ovale. Atrioventricular valves: [...] Procedure Note Riana Hampton MBBS - 08/02/2023 [id number] Study ID:[id number] [facility] [place] [address] Echocardiogram Name: RON SEARS Study Date: 08/02/2023 10:51 AM Patient Location:[facility] Gender: Female Patient Class:Outpatient : 1990 Age: [...] in to the left atrium. There is fgbhafaebqtx-ow-srul shunting across the foramen ovale. Atrioventricular valves: [...] Chester MD CV PEDS ECHO ORDERAB LES * [facility] US Comprehensive Single (07/18/2023 12:31 PM APPAREL EMBROIDERY DIGITIZER) Anatomical Region Laterality Modality Ultrasound 07/18/2023 10:4 9 AM APPAREL EMBROIDERY DIGITIZER Impressions 07/18/2023 4:50 PM APPAREL EMBROIDERY DIGITIZER IMPRESSION ----- 1. Carrizales intrauterine at 18w 6d gestational age here for evaluation of anatomy. 2. The three vessel view is abnormal with the aorta appearing larger than the pulmonary artery and abnormal position of the SVC in relation to the other two great vessels displaced posteriorly and rightward. 3. No other anomalies commonly detected by ultrasound or soft markers of aneuploidy were identified in the detailed anatomic survey within the limits of ultrasound, however some views were suboptimal, as described above. 4. Growth parameters and estimated weight were consistent with established dates. 5. The amniotic fluid volume appeared normal. 6. On transabdominal imaging the cervix appears long and closed. Narrative 07/18/2023 4:50 PM APPAREL EMBROIDERY DIGITIZER ?Comprehensive ----- Pat. Name: RON SEARS ? Study Date: ??07/18/2023 10:49am Pat. NO: ??[id number] ?Referring ??: CARMELITA MG Site: ??[facility] ? Em Physician: Caroline Azar RDMS : ??1990 ?Age: ?? 32 ----- INDICATION ----- History of DVT and embolism. Chronic hypertension. METHOD ----- Transabdominal ultrasound examination ----- Carrizales . Number of fetuses: 1 DATING ----- ? Date ?Details ?Gest. age ?ELLIE LMP ?03/08/2023 ? 18 w + 6 d ? 12/13/2023 Prior assessment ? 05/09/2023 ? GA: 8 w + 2 d ? 18 w + 2 d ? 12/17/2023 U/S ? 07/18/2023 ?based upon AC, BPD, Femur, HC ? 18 w + 0 d ? 12/19/2023 Assigned dating ?Dating performed on 07/18/2023, based on the LMP ?18 w + 6 d ? 12/13/2023 GENERAL EVALUATION ----- Cardiac activity present. FHR 154 bpm. movements present. Presentation breech. Placenta Posterior, No Previa, > 2 cm from internal os. Umbilical cord 3 vessel cord. Amniotic fluid Amount of AF: normal. MVP 3.7 cm. BIOMETRY ----- Main Biometry: BPD ?35.9 ?mm ? 17w 0d ?Hadlock OFD ?54.2 ?mm ? 18w 0d ?Nicolaides HC ?146.4 ?mm ?17w 6d ?Hadlock Cerebellum tr ?18.4 ? mm ?18w 1d ?Nicolaides AC ?127.4 ?mm ?18w 2d ?28% ?Hadlock Femur ?27.9 ? mm ?18w 4d ?Hadlock Humerus ?26.1 ?mm ? 18w 1d ?Felecia Weight Calculation: EFW ? 234 ? g ? 18% ?Hadlock EFW (lb,oz) ? 0 lb 8 ?oz EFW by ?Hadlock ([id number]) Head / Face / Neck Biometry: Hide Spreader ? 6.1 ? mm CM ?4.4 ? mm Nasal bone ? 5.0 ? mm Nuchal fold ? 4.0 ? mm ANATOMY ----- The following structures appear abnormal: Heart / Thorax ?3-vessel view. The following structures appear normal: Head / Neck ? Cranium. Head size. Head shape. Lateral ventricles. Choroid plexus. Midline falx. Cavum septi pellucidi. Cerebellum. Cisterna magna. ? Parenchyma. Thalami. Vermis. ? Neck. Nuchal fold. Face ? Profile. Nose. Maxilla. Mandible. Orbits. Lens. Heart / Thorax ?Situs. Aortic arch view. Bicaval view. Superior vena cava. Inferior vena cava. 3-mnztja-fzdfila view. Cardiac position. Cardiac size. Cardiac ? rhythm. ? Right lung. Left lung. Diaphragm. Abdomen ? Abdominal wall. Cord insertion. Stomach. Kidneys. Bladder. Liver. Bowel. Genitals. Spine ?Cervical spine. Thoracic spine. Extremities / Skeleton ?Right arm. Left arm. Right leg. Right foot. Left leg. Left foot. The following structures could not be adequately visualized: Face ? Lips. Heart / Thorax ?4-chamber view. RVOT view. LVOT view. Ductal arch view. Spine ?Lumbar spine. Sacral spine. Extremities / Skeleton ?Right hand. Left hand. Gender: female. MATERNAL STRUCTURES ----- Cervix ?Visualized ? Appearance: Appears Closed ? Cervical length 44.3 mm Right Ovary ?Visualized Left Ovary ?Visualized RECOMMENDATION ----- Thank-you for referring your patient for MFM consult & ultrasound assessment. I discussed the findings on today's ultrasound with the patient. I reviewed the limitations of ultrasound both in detecting aneuploidy and structural abnormalities. Ultrasound can routinely detect 80-90% of structural abnormalities. She had low risk cell free DNA for genetic screening this . We discussed the ultrasound findings today in addition to her consult - reviewed the abnormal appearance of the cardiac anatomy, specifically the three vessel view, and that this could represent valvular disease of the aorta (possibly bicuspid aortic valve) resulting in post-valvular dilation. Additionally, this could be a variation of normal. We discussed the recommendation for a echocardiogram with pediatric cardiology which has been scheduled for 08/02. We will plan to reassess suboptimally visualized anatomy at that time. Please see separate note in Epic for full details from today's consult visit including recommendations for ongoing management. Return to primary provider for continued care. If you have questions regarding today's evaluation or if we can be of further service, please contact the [facility]. anomalies may be present but not detected Procedure Note Amado Chester MD - 07/18/2023 Comprehensive ----- Pat. Name: RON SEARS Study Date: 07/18/2023 10:49am Pat. NO: [id number] Referring MD: CARMELITA MG Site: [facility] Em Physician: Caroline Azar RDMS : 1990 Age: 32 ----- INDICATION ----- History of DVT and embolism. Chronic hypertension. METHOD ----- Transabdominal ultrasound examination ----- Carrizales . Number of fetuses: 1 DATING ----- DateDetailsGest. age ELLIE LMP w + 6 d 12/13/2023 Prior assessment 05/09/2023 GA: 8 w +2 d18 w + 2 d 12/17/2023 U/S 07/18/2023ased upon AC, BPD, Femur, HC18 w + 0 d 12/19/2023 Assigned dating Dating performed on 07/18/2023, based onthe LMP 18 w+ 6 d 12/13/2023 GENERAL EVALUATION ----- Cardiac activity present. FHR 154 bpm. movements present. Presentation breech. Placenta Posterior, No Previa, > 2 cm from internal os. Umbilical cord 3 vessel cord. Amniotic fluid Amount of AF: normal. MVP 3.7 cm. BIOMETRY ----- Main Biometry: BPD 35.9 mm17w 0d Hadlock OFD 54.2 mm18w 0d Nicolaides HC 146.4 mm17w 6d Hadlock Cerebellum tr 18.4 mm18w 1d Nicolaides AC 127.4 mm18w 2d 28% Hadlock Femur 27.9 mm18w 4d Hadlock Humerus 26.1 mm18w 1d Felecia Weight Calculation: EFW 234 g18% Hadlock EFW (lb,oz) 0 lb 8 oz EFW by Hadlock ([id number]) Head / Face / Neck Biometry: Hide Spreader 6.1 mm CM 4.4 mm Nasal bone 5.0 mm Nuchal fold 4.0 mm ANATOMY ----- The following structures appear abnormal: Heart / Thorax 3-vessel view. The following structures appear normal: Head / Neck Cranium. Head size. Head shape.Lateral ventricles. Choroid plexus. Midline falx. Cavum septi pellucidi.Cerebellum. Cisterna magna. Parenchyma. Thalami. Vermis. Neck. Nuchal fold. Face Profile. Nose. Maxilla. Mandible.Orbits. Lens. Heart / Thorax Situs. Aortic arch view. Bicaval view.Superior vena cava. Inferior vena cava. 2-nkijmv-xeuaffr view. Cardiacposition. Cardiac size. Cardiac rhythm. Right lung. Left lung.Diaphragm. Abdomen Abdominal wall. Cord insertion.Stomach. Kidneys. Bladder. Liver. Bowel. Genitals. Spine Cervical spine. Thoracic spine. Extremities / Skeleton Right arm. Left arm. Right leg. Rightfoot. Left leg. Left foot. The following structures could not be adequately visualized: Face Lips. Heart / Thorax 4-chamber view. RVOT view. LVOT view.Ductal arch view. Spine Lumbar spine. Sacral spine. Extremities / Skeleton Right hand. Left hand. Gender: female. MATERNAL STRUCTURES ----- Cervix Visualized Appearance: Appears Closed Cervical length 44.3 mm Right Ovary Visualized Left Ovary Visualized RECOMMENDATION ----- Thank-you for referring your patient for [facility] consult & ultrasoundassessment. I discussed the findings on today's ultrasound with the patient. Ireviewed the limitations of ultrasound both in detecting aneuploidy andstructural abnormalities. Ultrasound can routinely detect 80-90% of structural abnormalities. She had low riskcell free DNA for genetic screening this . We discussed the ultrasound findings today in addition to her consult -reviewed the abnormal appearance of the cardiac anatomy, specifically thethree vessel view, and that this could represent valvular disease of the aorta (possibly bicuspidaortic valve) resulting in post-valvular dilation. Additionally, thiscould be a variation of normal. We discussed the recommendation for a echocardiogram with pediatriccardiology which has been scheduled for 08/02. We will plan to reassesssuboptimally visualized anatomy at that time. Please see separate note in Epic for full details from today's consultvisit including recommendations for ongoing management. Return to primary provider for continued care. If you have questions regarding today's evaluation or if we can be offurther service, please contact the [facility]. anomalies may be present but not detected IMPRESSION ----- 1. Carrizales intrauterine at 18w 6d gestational age here forevaluation of anatomy. 2. The three vessel view is abnormal with the aorta appearing larger thanthe pulmonary artery and abnormal position of the SVC in relation to theother two great vessels displaced posteriorly and rightward. 3. No other anomalies commonly detected by ultrasound or softmarkers of aneuploidy were identified in the detailed anatomicsurvey within the limits of ultrasound, however some views were suboptimal, as described above. 4. Growth parameters and estimated weight were consistent withestablished dates. 5. The amniotic fluid volume appeared normal. 6. On transabdominal imaging the cervix appears long and closed. Dwayne Vieyra MD [facility] US ORDERABL ES * PAP SMEAR (11/04/1998 1:18 PM CDT) Unlabelled DNR [facility] Biopsy Sent DNR [facility] Source VAG,CERV,E NDOCERV [facility] LMP POST [facility] PARA 3 [facility] 2 [facility] Clinical History DNR [facility] Therapy DNR [facility] Last Pap Diagnosis WITHIN NORMAL LIMITS [facility] PAP Date [id number] [facility] Specimen # DNR [facility] Tissue DNR [facility] Tissue Date DNR [facility] Statement of Adequacy [facility] Comment: SATISFACTORY FOR INTERPRETATION POST MENOPAUSAL PATIENT. ??NO ENDOCERVICAL CELLS SEEN. General Categorization DNR [facility] Descriptive Diagnosis [facility] Comment: WITHIN NORMAL LIMITS ATROPHIC CELL PATTERN Recommendations DNR [facility] DNR 114,,,,,, [facility] DNR DNR [facility] DNR DNR [facility] DNR DNR [facility] . [facility] Comment: ?PAP SMEARS ARE SUBJECT TO BOTH FALSE NEGATIVE AND FALSE ? POSITIVE RESULTS EVIDENCED BY DATA PUBLISHED IN THE ? MEDICAL LITERATURE. ??YOUR PATIENT'S RESULT SHOULD BE ? INTERPRETED IN THIS CONTEXT, TOGETHER WITH THE PATIENT'S ? HISTORY AND CLINICAL FINDINGS. TESTING LOCATION ? THIS TEST WAS PERFORMED AT [facility] ? [address] [address] [address]. [id number] ? PHONE NUMBERS FOR CYTOLOGY INQUIRES, INCLUDING SLIDE REQUESTS ? EXT. [id number] ?? EXT. [id number] 11/02/1998 Dora Gusman MD LABORATORY [facility] from Last 3 Months or Most Recently Relevant to Health Maintenance Care Teams Tube Bender Hand Relationship Specialty Start Date End Date No Ref-Primary, Physician PCP - General 06/15/23 Amado Chester MD [address] [address] Assigned OBGYN Provider 08/04/23
--- OUTSIDE RECORDS SUMMARY | 2023-10-02 23:31 | XMS_ITS | Encounter Summary ---
Author Name Unknown Organization [facility] Address [address] [place] [id number] Care Team Providers Care Pit Furnace Operator Name Role Phone No Ref-Primary, Physician Primary Care Provider Encounter Details Date Type Department Care Team (Latest Contact Info) Description 07/11/2023 Travel Social History Tobacco Use Types Packs/Day Years [...] on file documented as of this encounter Plan of Treatment Not on file documented as of this encounter Visit Diagnoses Not on filedocumented in this encounter Care Teams Pit Furnace Operator Relationship Specialty Start Date End Date No Ref-Primary, Physician PCP - General 06/15/23 documented as of this encounter
--- OUTSIDE RECORDS SUMMARY | 2023-10-02 23:31 | XMS_ITS | Encounter Summary ---
Author Name Unknown Organization [facility] Address [address] [place] [address] Care Team Providers Care Senior Biostatistician/Group Leader Name Role Phone No Ref-Primary, Physician Primary Care Provider Reason for Referral * Diagnostic Imaging Ultrasound (Routine) - Pending Review Specialty Diagnoses / Procedures Referred By Contac t Referred To Contact Radiology. Diagnoses Personal history of DVT (deep vein thrombosis) Chronic hypertension History of deep venous thrombosis Procedures [facility] Comprehensive Single F/U [facility] Comprehensive Single F/U Peg Oleary MD [address] [address] Referral ID Status Reason Start Date Expiration Date V isits Requested Visits Authorized [id number] Pending Review 07/18/2023 07/17/2024 1 1 ORIOGRAPHY PROFESSOR Reason for Visit * Diagnostic Imaging Ultrasound (Routine) - Pending Review Specialty Diagnoses / Procedures Referred By Contac t Referred To Contact Radiology. Diagnoses Personal history of DVT (deep vein thrombosis) Chronic hypertension History of deep venous thrombosis Procedures [facility] Comprehensive Single F/U [facility] Comprehensive Single F/U Peg Oleary MD [address] [facility] [address] [place] [address] Referral ID Status Reason Start Date Expiration Date V isits Requested Visits Authorized [id number] Pending Review 07/18/2023 07/17/2024 1 1 Encounter Details Date Type Department Care Team (Latest Contact Info) Description 08/02/2023 10:44 AM HISTORIOGRAPHY PROFESSOR - 08/02/2023 11:59 PM HISTORIOGRAPHY PROFESSOR Hospital Encounter [facility] [address] [place] [id number] Peg Oleary MD [address] [place] [address] [place], [place] [id number] History of deep venous thrombosis Discharge Disposition: [...] mouth daily documented as of this encounter Plan of Treatment Not on file documented as of this encounter Procedures Procedure Name Priority Date/Time Associated Diagnosis Comments [facility] COMPREHENSIVE SINGLE F/U Routine 08/02/2023 12:04 PM HISTORIOGRAPHY PROFESSOR History of deep venous thrombosis documented in this encounter Results * [facility] Comprehensive Single F/U (08/02/2023 12:04 PM HISTORIOGRAPHY PROFESSOR) Anatomical Region Laterality Modality Ultrasound 08/02/2023 11:4 0 AM HISTORIOGRAPHY PROFESSOR Impressions 08/02/2023 3:43 PM HISTORIOGRAPHY PROFESSOR IMPRESSION ----- 1. Harman intrauterine at 21w 0d gestational age here for completion of anatomy. 2. The remaining anatomic survey was completed, no anomalies commonly detected by ultrasound were identified within the limits of ultrasound. 3. The amniotic fluid volume appeared normal. Narrative 08/02/2023 3:43 PM HISTORIOGRAPHY PROFESSOR ?Comp Follow Up ----- Pat. Name: RON SEARS ? Study Date: ??08/02/2023 11:40am Pat. NO: ??[id number] ?Referring ??MD: CARMELITA MG Site: ??[facility] ? Shearer Screen Measurer And Trimmer: ??Jackie Mccarthy RDMS : ??1990 ?Age: ?? 32 ----- INDICATION ----- History of DVT and embolism. Chronic hypertension. Follow-up suboptimal anatomy. METHOD ----- Transabdominal ultrasound examination. View: Sufficient ----- Harman . Number of fetuses: 1 DATING ----- [...] be present but not detected Procedure Note Peg Oleary MD - 08/02/2023 Comp Follow Up ----- Pat. Name: RON SEARS Study Date: 08/02/2023 11:40am Pat. NO: [id number] Referring MD: CARMELITA MG Site: [facility] Shearer Screen Measurer And Trimmer: Jackie Mccarthy RDMS : 1990 Age: 32 ----- INDICATION ----- History of DVT and embolism. Chronic hypertension. Follow-up suboptimalanatomy. METHOD ----- Transabdominal ultrasound examination. View: Sufficient ----- Harman . Number of fetuses: 1 DATING ----- [...] to weekly surveillance starting at 32 weeks shouldcharbel require antihypertensive agents for management of her chronichypertension. We presume this follow-up can be performed with your office. Return to primary provider for continued care. If you have questions regarding today's evaluation or if we can be offurther service, please contact the [facility]. anomalies may be present but not detected IMPRESSION ----- 1. Harman intrauterine at 21w 0d gestational age here forcompletion of anatomy. 2. The remaining anatomic survey was completed, no anomaliescommonly detected by ultrasound were identified within the limits ofprenatal ultrasound. 3. The amniotic fluid volume appeared normal. Peg Oleary MD [facility] US ORDERABLE S documented in this encounter Visit Diagnoses Diagnosis History of deep venous thrombosis Personal history of venous thrombosis and embolism documented in this encounter Care Teams Senior Biostatistician/Group Leader Relationship Specialty Start Date End Date No Ref-Primary, Physician PCP - General 06/15/23 documented as of this encounter
--- OUTSIDE RECORDS SUMMARY | 2023-10-02 23:31 | XMS_ITS | Encounter Summary ---
Author Name Unknown Organization [facility] Address [address] [place] [address] Care Team Providers Care Slab Off Mill Tender Name Role Phone No Ref-Primary, Physician Primary Care Provider Encounter Details Date Type Department Care Team (Latest Contact Info) Description 07/17/2023 Travel Social History Tobacco Use Types Packs/Day [...] on filedocumented in this encounter Care Teams Slab Off Mill Tender Relationship Specialty Start Date End Date No Ref-Primary, Physician PCP - General 06/15/23 documented as of this encounter
--- OUTSIDE RECORDS SUMMARY | 2023-10-02 23:31 | XMS_ITS | Encounter Summary ---
Author Name Unknown Organization [facility] Address [address] [place] [address] Care Team Providers Care Political Consultant Name Role Phone No Ref-Primary, Physician Primary Care Provider Encounter Details Date Type Department Care Team (Latest Contact Info) Description 08/02/2023 Travel Social History Tobacco Use Types Packs/Day [...] on filedocumented in this encounter Care Teams Political Consultant Relationship Specialty Start Date End Date No Ref-Primary, Physician PCP - General 06/15/23 documented as of this encounter
--- OUTSIDE RECORDS SUMMARY | 2023-10-02 23:31 | XMS_ITS | Encounter Summary ---
Author Name Unknown Organization [facility] Address [address] [place] [address] Care Team Providers Care Teacher Of The Deaf/Hard Of Hearing Name Role Phone No Ref-Primary, Physician Primary Care Provider Encounter Details Date Type Department Care Team (Latest Contact Info) Description 07/26/2023 Travel Social History Tobacco Use Types Packs/Day [...] on filedocumented in this encounter Care Teams Teacher Of The Deaf/Hard Of Hearing Relationship Specialty Start Date End Date No Ref-Primary, Physician PCP - General 06/15/23 documented as of this encounter
--- OUTSIDE RECORDS SUMMARY | 2023-10-02 23:31 | XMS_ITS | Encounter Summary ---
Author Name Unknown Organization [facility] Address [address] [place] [address] Care Team Providers Care Gender Studies Professor Name Role Phone No Ref-Primary, Physician Primary Care Provider Encounter Details Date Type Department Care Team (Latest Contact Info) Description 07/18/2023 Travel Social History Tobacco Use Types Packs/Day [...] on filedocumented in this encounter Care Teams Gender Studies Professor Relationship Specialty Start Date End Date No Ref-Primary, Physician PCP - General 06/15/23 documented as of this encounter
--- OUTSIDE RECORDS SUMMARY | 2023-10-02 23:31 | XMS_ITS | Encounter Summary ---
Author Name Unknown Organization [facility] Address [address] [place] [id number] Care Team Providers Care Environmental Scientist Name Role Phone No Ref-Primary, Physician Primary Care Provider Reason for Referral * Diagnostic Imaging Ultrasound (Routine) - Pending Review Specialty Diagnoses / Procedures Referred By Contac t Referred To Contact Radiology. Diagnoses Personal history of DVT (deep vein thrombosis) Chronic hypertension History of deep venous thrombosis Procedures MF US Comprehensive Single F/U MF US Comprehensive Single F/U Amado Chester MD [address] [place] [id number] Referral ID Status Reason Start Date Expiration Date V isits Requested Visits Authorized [id number] Pending Review 07/18/2023 07/17/2024 1 1 UCTION SUPERINTENDENT HYDRO * (Routine) - Closed Specialty Diagnoses / Procedures Referred By Contac t Referred To Contact Cardiology Diagnoses Personal history of DVT (deep vein thrombosis) Chronic hypertension History of deep venous thrombosis Procedures Echo (TTE) Complete Amado Chester MD [address] [address] [facility] [address] [place] [phone] Referral ID Status Reason Start Date Expiration Date Visits Re quested Visits Authorized [id number] Closed 07/18/2023 07/17/2024 1 1 UCTION SUPERINTENDENT HYDRO Reason for Visit * Reason Comments Consult Hx DVT, CHTN, hx PPH , close-interval Ultrasound L2- Hx DVT, CHTN, hx PPH, close-interval * Consultation (Routine: Next available opening) - Pending Review Specialty Diagnoses / Procedures Referred By Contac t Referred To Contact Diagnoses Personal history of DVT (deep vein thrombosis) Dwayne Vieyra MD [address] [place] [address] Referral ID Status Reason Start Date Expiration Date V isits Requested Visits Authorized [id number] Pending Review 06/15/2023 06/14/2024 1 1 Encounter Details Date Type Department Care Team (Late st Contact Info) Description 07/18/2023 11:45 AM PRODUCTION SUPERINTENDENT HYDRO Office Visit [facility] Maternal Medicine Center [place] [address] [place] [address] Amado Chester MD [address] [place] [address] Chronic hypertension in (Primary Dx); History of deep venous thrombosis; History of deep vein thrombosis (DVT) during ; Suspected anomaly, antepartum, single or unspecified fetus Social History Tobacco Use Types Packs/Day Years [...] on file documented as of this encounter Last Filed Vital Signs Vital Sign Reading Time Taken Comments Blood Pressure 119/82 07/18/2023 12:05 PM PRODUCTION SUPERINTENDENT HYDRO Pulse 78 07/18/2023 12:05 PM PRODUCTION SUPERINTENDENT HYDRO Temperature - - Respiratory Rate 18 07/18/2023 12:05 PM PRODUCTION SUPERINTENDENT HYDRO Oxygen Saturation 99% 07/18/2023 12:05 PM PRODUCTION SUPERINTENDENT HYDRO Inhaled Oxygen Concentration - - Weight 105.5 kg (232 lb 8 oz) 07/18/2023 12:05 P M PRODUCTION SUPERINTENDENT HYDRO Height 180.3 cm (5' 11) 07/18/2023 12:05 PM PRODUCTION SUPERINTENDENT HYDRO Body Mass Index 32.43 07/18/2023 12:05 PM PRODUCTION SUPERINTENDENT HYDRO documented in this encounter Progress Notes * Melissa Amezcua MD - 07/18/2023 11:45 AM CST Images from the original note were not included. Maternal- Medicine Consultation Ron Sears : 1990 Rerferral: Ron Sears is a 32 year old sent by Dr. Mg from [facility] for MFM consultation. HPI Ron Sears is a 32 year old at 18w6d by LMP consistent with 8w2d US here for MFM consultation regarding history of DVT in a prior and chronic hypertension. Patient was diagnosed with a left common femoral DVT on 01/21/21, which was in the 32nd week of her first . She was started on Lovenox 100mg twice daily. She had been recommended to have a thrombectomy, but she left the hospital to attend her baby shower. Her mother had a history of VTE as well, for which she was on Warfarin. It appears Ron is not a Factor V Leiden or factor II mutation carrier and has negative antiphospholipid antibodies. She saw hematology after her last delivery in 2020 who notes that she had thrombophilia testing completed, although there is no record of antithrombin III, protein C or protein S. She was told by Hematology that in future pregnancies she should be on prophylactic anticoagulation through 6 weeks which she did in her second in 2021 without issue. She is currently taking Lovenox 40mg daily. With regards to her hypertension, she was diagnosed during her first in 2020. She has notbeen on antihypertensives in the past and does not recall being told she ever had preeclampsia. Shehas a blood pressure cuff at home and checks her blood pressure weekly reports they are mostly normal, occasionally in the 130s/80s-90s and she is not on medications. Care: Primary OB care this has been with Dr. Mg from [facility]. OB History Para Term AB Living 5 2 2 0 2 2 SAB IAB Ectopic Multiple Live Births 2 0 0 0 2 # Outcome Date GA Lbr Vignesh/2nd Weight Sex Delivery Anes PTL Lv 5 Current 4 Term 03/31/22 38w0d 2.835 kg (6 lb 4 oz) Vag-Spont JANET 3 Term 03/01/21 38w1d 02:34 / 00:15 2.637 kg (5 lb 13 oz) F JANET Comments: DVT at 32 weeks, CHTN--no meds, monitored at home, PPH 3 wks after delivery (was onLovenox) Name: BG RON SEARS Apgar1: 8 Apgar5: 9 2 SAB 04/09/19 9w0d SAB 1 SAB 01/29/18 11w0d SAB Gynecologic History - Denies any history of abnormal pap smears - Denies prior cervical surgery or procedures - Denies any history of frequent UTIs, vaginal infections, or STIs Past Medical History Past Medical History: Diagnosis Date Chronic hypertension History of deep venous thrombosis Past Surgical History No past surgical history on file. Medication List Current Outpatient Medications Medication aspirin 81 MG EC tablet enoxaparin ANTICOAGULANT (LOVENOX) 40 MG/0.4ML syringe Vit-Fe Fumarate-FA (PNV PLUS MULTIVITAMIN) 27-1 MG TABS per tablet No current facility-administered medications for this visit. Allergies Patient has no known allergies. Social History Denies use of alcohol, drugs or smoking. Family History Denies history of genetic disorders, preeclampsia, thromboembolic disease, bleeding disorders, developmental delay. Review of Systems 10-point ROS negative except as in HPI. Physical Exam BP 119/82 (BP Location: Left arm, Patient Position: Sitting, Cuff Size: Adult Large) Pulse 78 Resp 18 Ht 1.803 m (5' 11) Wt 105.5 kg (232 lb 8 oz) LMP 03/08/2023 SpO2 99% BMI 32.43 kg/m?? Gen: NAD CV: RRR Resp: CTAB Abd: Gravid, non-tender Ext: No edema Labs - 05/09/23 Hgb 13.9, Plt 357 Cr 0.5, AST 40, ALT 43 P/C ratio: undetectable A1c 4.7 Ultrasound See today's ultrasound report under the imaging tab. Assessment/Counseling Ron Sears is a 32 year old at 18w6d by LMP consistent with 8w2d US here for MFM consultation regarding history of DVT in prior and chronic hypertension. See today's ultrasound report for additional counseling regarding suboptimal heart views with abnormal 3VV. History of DVT and women have up to a five-fold increased risk for venous thromboembolism (VTE); they have higher rates of stasis, hypercoagulability and vascular damage. The prevention of deep vein thrombosis (DVT) is paramount because pulmonary embolism (PE) is a leading cause of maternal , responsible for 9% of maternal deaths. The most important risk factor for VTE in is apersonal history of VTE, and up to 25% of cases of VTE in are recurrent events. The second most important risk factor is the presence of a thrombophilia, with up to 50% of women experiencing VTE in having a thrombophilia. ACOG recommends that all women with a VTE be evaluated for both antiphospholipid antibody syndrome and inherited thrombophilias. These results might policy change clerk of a future . Women with a history of VTE that is estrogen or related or was idiopathic (i.e. unprovoked), in the absence of a thrombophilia, are managed with prophylactic anticoagulation during and for 6 weeks . For most patients enoxaparin 40mg daily is sufficient. This can be continued up until a scheduled delivery and just held 12 hours prior to a scheduled induction (it is not necessary to transition to unfractionated heparin), Most experts recommend waiting 12 hours after a dose of prophylactic LMWH before placing regional anesthesia. Similarly, a dose should be given no sooner than four hours after removal of an epidural and 12 hours after the regional anesthesia placement. The exact timing should be discussed with the a nesthesiologist performing the procedure. From an obstetrics stand point, assuming no significant bleeding anticoagulation can usually be resumed 12 hours after a or six hours after a vaginal . Again, pneumatic compression devices are recommended. is safe on enoxaparin. Avoidance of estrogen containing control is recommended. Chronic Hypertension The concern with chronic hypertension is that such patients are more likely to develop preeclampsiaduring the , with a risk of 20-50%. Women with chronic hypertension are at increased risk for early-onset preeclampsia. Low dose aspirin has been used to lower this risk. Chronic hypertension also increases the risk of maternal stroke, pulmonary edema, renal failure, gestational diabetes, iatrogenic , growth restriction, placental abruption and mortality rateincluding stillbirth Without baseline laboratory assessment, it may be difficult to distinguish an exacerbation of hypertension from preeclampsia, especially in the third trimester. We reviewed that it is generally anticipated that blood pressure will gradually decrease during early , reaching at jessica at 28-32 weeks, and then slowly rise to pre- levels. We reviewed the goals of antihypertensive therapy in , specifically there is new data to suggest that improved blood pressure control during reduces the risk of developing superimposed preeclampsia with severe features, abruption, delivery < 35 weeks, and / without an increased risk of growth restriction/small for gestation age infants. Basedon these findings it is recommended that women be initiated on medications, prior to 20 weeks, to keep blood pressures <140/90mmHg both pre and throughout gestation. We generally recommend home blood pressure monitoring to assist with medication titration as well as to monitor her for the development of preeclampsia. In the event of new elevations in blood pressures after 20 weeks gestation, we would recommend thorough evaluation for preeclampsia prior to medication dose escalation. We reviewed the relative safety of various antihypertensive classes of medications during . Baseline labs are recommended to assess for end-organ damage in addition to an EKG +/- Echocardiogram for those with a history of longstanding hypertension. If there is evidence of end organ damage(renal insufficiency, left ventricular hypertrophy or severe thrombocytopenia) a lower threshold of130 mmHg systolic and/or 80 mm Hg diastolic is recommended. Labetalol or long-acting nifedipine safe options for blood pressure control in . The patient had mildly elevated LFTs in the beginning of that have been repeated and improved with plan to repeat again at her visit tomorrow. If they remain elevated, recommend RUQ US and infectious disease workup. Recommendations Medications - Continue Lovenox prophylaxis at 40mg/daily and continue through 6 weeks (no need to switch to Heparin at 36 weeks) - Initiate necessary medications and titrate as needed to achieve blood pressure goal <140/90 - Continue low dose aspirin for preeclampsia prevention Laboratory evaluation - Recommend repeat LFTs, if ongoing elevation recommend RUQ US - Recommend labs to evaluate for preeclampsia in the event of blood pressure elevations prior to initiating/titrating antihypertensive medications after 20 weeks Maternal antepartum management - Electrocardiogram, if abnormal this should be followed up with an echocardiogram - Recommend home blood pressure monitoring and initiation of antihypertensive medication if blood pressures ? 140/90 mmHg Ultrasound surveillance - Completion of anatomy and echocardiogram on 08/02 with our office - Ultrasounds for growth monthly starting at 28 weeks gestation. - surveillance with weekly BPP (or NST and MVP) starting at 32 weeks depending on severity of maternal disease Timing and mode of delivery - Delivery at 38-39 weeks (unless poorly controlled or otherwise indicated sooner) management - Continue prophylactic LMWH through 6 weeks - Early visit (within the first week) for blood pressure assessment - , medication should be adjusted to maintain the systolic blood pressure below 140 mm Hgand the diastolic blood pressure below 90 mm Hg The patient was seen and evaluated with Dr. Amado Chester. Thank you for allowing us to participate in the care of your patient. Please do not hesitate to contact us if you have further questions regarding the management of your patient. Melissa Amezcua MD Maternal Medicine Fellow [facility] Attending Attestation I have seen and evaluated the patient with Dr. Amezcua. I reviewed her chart and agree with the above documented assessment and plan. I spent a total of 60 minutes on the date of this encounter including preparing to see the patient (reviewing medical records/tests), counseling and discussing the plan of care, documenting the visit in the electronic medical record, and communicating with other health managed care provider and/or care coordination.Please see her note for specific details; I have made the necessary edits/additions. The patient was also seen for an ultrasound in the Maternal- Medicine Center at the [facility] today. For a detailed report of the ultrasound examination, please see the ultrasound report which can be found under the imaging tab. Amado Chester MD Maternal Medicine Physician UCTION SUPERINTENDENT HYDRO documented in this encounter Nursing Notes * Julia Azar RN - 07/18/2023 11:45 AM CST Ron was seen in [facility] today for hx of DVT in , CHTN, and hx PPH. Dr. Chester and Aravind into see patient. US subopt for heart. ECHO ordered and follow up ultrasound ordered in 2 weeks. Please see [facility] consult note for recommendations. Patient was discharged ambulatory and stable. UCTION SUPERINTENDENT HYDRO documented in this encounter Plan of Treatment Not on file documented as of this encounter Results * [facility] US Comprehensive Single F/U (08/02/2023 12:04 PM PRODUCTION SUPERINTENDENT HYDRO) Anatomical Region Laterality Modality Ultrasound 08/02/2023 11:4 0 AM PRODUCTION SUPERINTENDENT HYDRO Impressions 08/02/2023 3:43 PM PRODUCTION SUPERINTENDENT HYDRO IMPRESSION ----- 1. Carrizales intrauterine at 21w 0d gestational age here for completion of anatomy. 2. The remaining anatomic survey was completed, no anomalies commonly detected by ultrasound were identified within the limits of ultrasound. 3. The amniotic fluid volume appeared normal. Narrative 08/02/2023 3:43 PM PRODUCTION SUPERINTENDENT HYDRO ?Comp Follow Up ----- Pat. Name: RON SEARS ? Study Date: ??08/02/2023 11:40am Pat. NO: ??[id number] ?Referring ??: CARMELITA MG Site: ??[facility] ? Manager Merchandise: ??Jackie Mccarthy RDMS : ??1990 ?Age: ?? [...] SEARS Study Date: 08/02/2023 11:40am Pat. NO: [id number] Referring MD: CARMELITA MG Site: [facility] Manager Merchandise: Jackie Mccarthy RDMS : 1990 Age: 32 [...] The amniotic fluid volume appeared normal. Amado Chester MD [facility] US ORDERABLE S * ECHO COMPLETE (08/02/2023 12:01 PM PRODUCTION SUPERINTENDENT HYDRO) Anatomical Region Laterality Modality Ultrasound 08/02/2023 10:5 1 AM PRODUCTION SUPERINTENDENT HYDRO Narrative 08/02/2023 11:39 AM PRODUCTION SUPERINTENDENT HYDRO [id number]^HENRIK^AMADO ? Study ID: [id number] ?[facility] [place] ?[facility] ?[address] ?[place] [address] ? Echocardiogram Name: RON SEARS M Study Date: 08/02/2023 10:51 AM ? Patient Location: [facility] Gender: Female ?Patient Class: Outpatient : 1990 ? Age: 32 yrs Ordering Provider: AMADO CHESTER Referring Provider: CARMELITA MG Performed By: Markus Castle RDCS Reading Physician: iRana Hampton MD Reason For Study: History of [...] to the left atrium. There is laminar gyqht-hm-bxda shunting across the foramen ovale. Atrioventricular valves: [...] Procedure Note Riana Hampton MBBS - 08/02/2023 [id number]^HENRIK^AMADO Study ID:[id number] [facility] [address] [address] Echocardiogram Name: RON SEARS Study Date: 08/02/2023 10:51 AM Patient Location:[facility] Gender: Female Patient Class:Outpatient : 1990 [...] in to the left atrium. There is mgkqvfgceugb-ke-dygr shunting across the foramen ovale. Atrioventricular valves: [...] documented in this encounter Visit Diagnoses Diagnosis Chronic hypertension in - Primary Benign essential hypertension complicating , childbirth, and the puerperium, unspecified as to episode of care History of deep venous thrombosis Personal history of venous thrombosis and embolism History of deep vein thrombosis (DVT) during Suspected anomaly, antepartum, single or unspecified fetus History of deep venous thrombosis Personal history of venous thrombosis and embolism History of deep venous thrombosis Personal history of venous thrombosis and embolism documented in this encounter Care Teams Environmental Scientist Relationship Specialty Start Date End Date No Ref-Primary, Physician PCP - General 06/15/23 documented as of this encounter
--- OUTSIDE RECORDS SUMMARY | 2023-10-02 23:31 | XMS_ITS | Encounter Summary ---
Author Name Unknown Organization [facility] Address [address] [place] [address]. [place] [address] Care Team Providers Care Instrument Panel Assembler Name Role Phone No Ref-Primary, Physician Primary Care Provider Encounter Details Date Type Department Care Team (Late st Contact Info) Description 08/02/2023 2:00 PM INTELLIGENCE SPECIALIST Office Visit [facility] Maternal Medicine [facility] [address] [place] [address] Peg Oleary MD [address] [place] [address] Suspected anomaly, antepartum, single or unspecified fetus (Primary Dx); Personal history of DVT (deep vein thrombosis); Chronic hypertension in ; History of deep vein thrombosis (DVT) during Social History Tobacco Use Types Packs/Day Years [...] on file documented as of this encounter Progress Notes * Peg Oleary MD - 08/02/2023 2:00 PM CST The patient was seen for an ultrasound in the Maternal- Medicine Center at the [facility] today. For a detailed report of the ultrasound examination, please see the ultrasound report which can be found under the imaging tab. If you have questions regarding today's evaluation or if we can be of further service, please contact the Maternal- Medicine Center. Peg Oleary MD Steam Conditioner Filling, [employer] Maternal- Medicine [phone] (Pager) LLIGENCE SPECIALIST documented in this encounter Plan of Treatment Not on file documented as of this encounter Visit Diagnoses Diagnosis Suspected anomaly, antepartum, single or unspecified fetus- Primary Personal history of DVT (deep vein thrombosis) Personal history of venous thrombosis and embolism Chronic hypertension in Benign essential hypertension complicating , childbirth, and the puerperium, unspecified as to episode of care History of deep vein thrombosis (DVT) during documented in this encounter Care Teams Instrument Panel Assembler Relationship Specialty Start Date End Date No Ref-Primary, Physician PCP - General 06/15/23 documented as of this encounter
--- OUTSIDE RECORDS SUMMARY | 2023-10-02 23:31 | XMS_ITS | Encounter Summary ---
Author Name Unknown Organization [facility] Address [facility] [place] [address] Care Team Providers Care Second Worker Name Role Phone No Ref-Primary, Physician Primary Care Provider Reason for Visit * Reason Comments Ultrasound L2- Hx DVT/Embolism, CHTN, Anx/Dep, Hx PPH Consult Hx DVT/Embolism, CHT N, Anx/Dep, Hx PPH Encounter Details Date Type Department Care Team (Late st Contact Info) Description 07/10/2023 PRE VISIT [facility] Maternal Medicine Center [place] [address] [place] [address] Dory Franco, RN Ultrasound (L2- Hx DVT/Embolism, CHTN, Anx/Dep, Hx PPH); Consult (Hx DVT/Embolism, CHTN, Anx/Dep, Hx PPH) Social History Tobacco Use Types Packs/Day Years [...] on filedocumented in this encounter Care Teams Second Worker Relationship Specialty Start Date End Date No Ref-Primary, Physician PCP - General 06/15/23 documented as of this encounter
--- OUTSIDE RECORDS SUMMARY | 2023-10-02 23:31 | XMS_ITS | Encounter Summary ---
Author Name Unknown Organization [facility] Address [address] [place] [id number] Care Team Providers Care Registered Nurse Obstetrics Name Role Phone No Ref-Primary, Physician Primary Care Provider Reason for Referral * Diagnostic Imaging Ultrasound (Routine) - Pending Review Specialty Diagnoses / Procedures Referred By Contac t Referred To Contact Radiology. Diagnoses Personal history of DVT (deep vein thrombosis) Procedures [facility] Comprehensive Dwayne Woo MD [address] [address] Referral ID Status Reason Start Date Expiration Date V isits Requested Visits Authorized [id number] Pending Review 06/15/2023 06/14/2024 1 1 CINE OPERATOR Reason for Visit * Diagnostic Imaging Ultrasound (Routine) - Pending Review Specialty Diagnoses / Procedures Referred By Contac t Referred To Contact Radiology. Diagnoses Personal history of DVT (deep vein thrombosis) Procedures [facility] Dwayne Woo MD [address] [address] Referral ID Status Reason Start Date Expiration Date V isits Requested Visits Authorized [id number] Pending Review 06/15/2023 06/14/2024 1 1 Encounter Details Date Type Department Care Team (Latest Contact Info) Description 07/18/2023 10:42 AM TELECINE OPERATOR - 07/18/2023 11:59 PM TELECINE OPERATOR Hospital Encounter [facility] Maternal Medicine [facility] [address] [place] [phone] Peg Oleary MD [address] [place] [address] Personal history of DVT (deep vein thrombosis) Discharge Disposition: Home or Self Care Social [...] Procedure Name Priority Date/Time Associated Diagnosis Comments [facility] SINGLE Routine 07/18/2023 12:31 PM TELECINE OPERATOR Personal history of DVT (deep vein thrombosis) documented in this encounter Results * [facility] Single (07/18/2023 12:31 PM TELECINE OPERATOR) Anatomical Region Laterality Modality Ultrasound 07/18/2023 10:4 9 AM TELECINE OPERATOR Impressions 07/18/2023 4:50 PM TELECINE OPERATOR IMPRESSION ----- 1. Harman intrauterine at 18w 6d gestational age here [...] long and closed. Narrative 07/18/2023 4:50 PM TELECINE OPERATOR ?Comprehensive ----- Pat. Name: MARTHA RON ? Study Date: ??07/18/2023 10:49am Pat. NO: ??[id number] ?Referring ??MD: CARMELITA MG Site: ??[facility] ? Nursing Instructor: Caroline Azar RDMS : ??1990 ?Age: ?? 32 ----- INDICATION ----- History of DVT and embolism. Chronic hypertension. METHOD ----- Transabdominal ultrasound examination ----- Harman . Number of fetuses: 1 [...] 0 lb 8 ?oz EFW by ?Hadlock ([id number]) Head / Face / Neck Biometry: Underwriting Support Manager ? 6.1 ? mm CM ?4.4 ? [...] view. Superior vena cava. Inferior vena cava. 4-tnjnku-lojjlcn view. Cardiac position. Cardiac size. Cardiac ? [...] detected Procedure Note Peg Oleary MD - 07/18/2023 Comprehensive ----- Pat. Name: RON SEARS Study Date: 07/18/2023 10:49am Pat. NO: [id number] Referring MD: CARMELITA MG Site: [facility] Nursing Instructor: Caroline Azar RDMS : 1990 Age: 32 ----- INDICATION ----- History of DVT and embolism. Chronic hypertension. METHOD ----- Transabdominal ultrasound examination ----- Harman . Number of fetuses: 1 [...] mm18w 4d Hadlock Humerus 26.1 mm18w 1d Felceia Weight Calculation: EFW 234 g18% Hadlock EFW (lb,oz) 0 lb 8 oz EFW by Hadlock ([id number]-[id number]-FL) Head / Face / Neck Biometry: Underwriting Support Manager 6.1 mm CM 4.4 mm Nasal bone [...] Bicaval view.Superior vena cava. Inferior vena cava. 3-morgml-hqlmuof view. Cardiacposition. Cardiac size. Cardiac rhythm. Right [...] ----- Thank-you for referring your patient for M consult & ultrasoundassessment. I discussed the findings [...] detected IMPRESSION ----- 1. Harman intrauterine at 18w 6d gestational age here [...] appears long and closed. Dwayne Vieyra MD [facility] ORDERABL ES documented in this encounter Visit Diagnoses Diagnosis Personal history of DVT (deep vein thrombosis) Personal history of venous thrombosis and embolism documented in this encounter Care Teams Registered Nurse Obstetrics Relationship Specialty Start Date End Date No Ref-Primary, Physician PCP - General 06/15/23 documented as of this encounter
--- OUTSIDE RECORDS SUMMARY | 2023-10-02 23:31 | XMS_ITS | Clinical Summary ---
Author Name Unknown Organization [facility] Address [address] [place] [address]. [place] [address] Care Team Providers Care Lifestyle Consultant Name Role Phone No Ref-Primary, Physician Primary Care Provider Amado Chester MD Unavailable [phone] Allergies No known active allergies Medications Medication [...] on last me nstrual period of 03/08/2023 Encounters Date Type Department Care Team Description 08/02/2023 2:00 PM ER PHYSICIAN Office Visit [facility] Maternal Medicine [facility] [place] [address], [place] [address] Amado Chester MD Suspected anomaly, antepartum, single or unspecified fetus (Primary Dx); Personal history of DVT (deep vein thrombosis); Chronic hypertension in ; History of deep vein thrombosis (DVT) during 08/02/2023 10:44 AM ER PHYSICIAN - 08/02/2023 11:59 PM ER PHYSICIAN Hospital Encounter [facility] [address] [place] [phone] Amado Chester MD Urmfmusfet History of deep venous thrombosis Discharge Disposition: Home or Self Care 08/02/2023 10:44 AM ER PHYSICIAN - 08/02/2023 11:59 PM ER PHYSICIAN Hospital Encounter [facility] Maternal Medicine [facility] [address] [place] [phone] Amado Chester MD History of deep venous thrombosis Discharge Disposition: Home or Self Care 08/02/2023 Travel 07/26/2023 Travel 07/18/2023 11:45 AM ER PHYSICIAN Office Visit [facility] Maternal Medicine [facility] [address] [place] [address] Amado Chester MD Chronic hypertension in (Primary Dx); History of deep venous thrombosis; History of deep vein thrombosis (DVT) during ; Suspected anomaly, antepartum, single or unspecified fetus 07/18/2023 10:42 AM ER PHYSICIAN - 07/18/2023 11:59 PM ER PHYSICIAN Hospital Encounter [facility] Maternal Medicine [address] [phone] Amado Chester MD Personal history of DVT (deep vein thrombosis) Discharge Disposition: Home or Self Care 07/18/2023 Travel 07/17/2023 Travel 07/11/2023 Travel 07/10/2023 PRE VISIT [facility] Maternal Medicine [address] [address] Dory Franco RN Ultrasound (L2- Hx DVT/Embolism, CHTN, Anx/Dep, Hx PPH); Consult (Hx DVT/Embolism, CHTN, Anx/Dep, Hx PPH) from Last 3 Months Social History Tobacco Use Types Packs/Day Years [...] Comments Blood Pressure 119/82 07/18/2023 12:05 PM ER PHYSICIAN Pulse 78 07/18/2023 12:05 PM ER PHYSICIAN Temperature - - Respiratory Rate 18 07/18/2023 12:05 PM ER PHYSICIAN Oxygen Saturation 99% 07/18/2023 12:05 PM ER PHYSICIAN Inhaled Oxygen Concentration - - Weight 105.5 kg (232 lb 8 oz) 07/18/2023 12:05 P M ER PHYSICIAN Height 180.3 cm (5' 11) 07/18/2023 12:05 PM ER PHYSICIAN Body Mass Index 32.43 07/18/2023 12:05 PM ER PHYSICIAN Plan of Treatment Health Maintenance Due Date Last Done Comments ADVANCE CARE PLANNING 1990 ANNUAL REVIEW OF HM ORDERS 1990 YEARLY PREVENTIVE VISIT 1990 HIV SCREENING 10/07/2007 HEPATITIS C SCREENING 2010 COVID-19 Vaccine ( season) 2023 INFLUENZA VACCINE (#1) 2023 07/27/2018 MATERNAL SCREENING DISCUSSION 05/17/2023 PHQ-2 (once per calendar year) 2023 OBGCT (OB) 08/23/2023 PAP 03/27/2026 03/27/2023, 03/27/2023 DTAP/TDAP/TD IMMUNIZATION (5 - Td or Tdap) 02/05/2032 02/04/2022, 01/08/2021, 05/04/2016, Additional history exists HEPATITIS B IMMUNIZATION Completed 005, 10/21/2004, 09/17/2004 HPV IMMUNIZATION Completed 10/28/2016, 01/2017, 05/04/2016 IPV IMMUNIZATION Aged Out No longer e ligible based on patient's age to complete this topic MENINGITIS IMMUNIZATION Aged Out No l onger eligible based on patient's age to complete this topic Pneumococcal Vaccine: Pediatrics (0 to 5 Years) and At-Risk Patients (6 to 64 Years) Aged Out No longer eligible based on patient's age to complete this topic RSV MONOCLONAL ANTIBODY Aged Out No l onger eligible based on patient's age to complete this topic RSV VACCINE ( & 60+) (No Doses Required) Completed Procedures Procedure Name Priority Date/Time Associated Diagnosis Comments [facility] COMPREHENSIVE SINGLE F/U Routine 08/02/2023 12:04 PM ER PHYSICIAN History of deep venous thrombosis ECHO COMPLETE Routine 08/02/2023 1 2:01 PM ER PHYSICIAN History of deep venous thrombosis [facility] US COMPREHENSIVE SINGLE Routine 07/18/2023 12:31 PM ER PHYSICIAN Personal history of DVT (deep vein thrombosis) HCL PAP SMEAR Routine 11/04/1998 1:18 PM CDT Gynecologic Examination from Last 3 Months or Most Recently Relevant to Health Maintenance Results * [facility] US Comprehensive Single F/U (08/02/2023 12:04 PM ER PHYSICIAN) Anatomical Region Laterality Modality Ultrasound 08/02/2023 11:4 0 AM ER PHYSICIAN Impressions 08/02/2023 3:43 PM ER PHYSICIAN IMPRESSION ----- 1. Carrizales intrauterine at 21w 0d gestational age here for completion of anatomy. 2. The remaining anatomic survey was completed, no anomalies commonly detected by ultrasound were identified within the limits of ultrasound. 3. The amniotic fluid volume appeared normal. Narrative 08/02/2023 3:43 PM ER PHYSICIAN ?Comp Follow Up ----- Pat. Name: RON SEARS ? Study Date: ??08/02/2023 11:40am Pat. NO: ??[id number] ?Referring ??: CARMELITA Jarrell: ??[facility] ? Biomed Tech: ??Jackie Mccarthy RDMS : ??1990 ?Age: ?? [...] SEARS Study Date: 08/02/2023 11:40am Pat. NO: [id number] Referring MD: CARMELITA MG Site: [facility] Biomed Tech: Jackie Mccarthy RDMS : 1990 Age: 32 [...] volume appeared normal. Amado Chester MD [facility] US ORDERABLE S * ECHO COMPLETE (08/02/2023 12:01 PM ER PHYSICIAN) Anatomical Region Laterality Modality Ultrasound 08/02/2023 10:5 1 AM ER PHYSICIAN Narrative 08/02/2023 11:39 AM [facility] [id number]^HENRIK^AMADO ? Study ID: [id number] ?[facility] ?[facility] ?[address] ?[place] [address] ? Echocardiogram Name: RON SEARS Study Date: [...] to the left atrium. There is laminar yduyk-bm-trpa shunting across the foramen ovale. Atrioventricular valves: [...] Procedure Note Riana Hampton MBBS - 08/02/2023 [id number]^HENRIK^AMADO Study ID:[id number] [facility] [address] [place] [address] Echocardiogram Name: RON SEARS Study Date: 08/02/2023 10:51 AM Patient Location:[facility] Gender: Female Patient Class:Outpatient : 1990 [...] in to the left atrium. There is vnvzaroxitwr-fn-kpyi shunting across the foramen ovale. Atrioventricular valves: [...] [facility] US Comprehensive Single (07/18/2023 12:31 PM ER PHYSICIAN) Anatomical Region Laterality Modality Ultrasound 07/18/2023 10:4 9 AM ER PHYSICIAN Impressions 07/18/2023 4:50 PM ER PHYSICIAN IMPRESSION ----- 1. Carrizales intrauterine at 18w [...] long and closed. Narrative 07/18/2023 4:50 PM ER PHYSICIAN ?Comprehensive ----- Pat. Name: RON SEARS ? Study Date: ??07/18/2023 10:49am Pat. NO: ??[id number] ?Referring ??MD: CARMELITA MG Site: ??[facility] ? Biomed Tech: Caroline Azar RDMS : ??1990 ?Age: ?? [...] Biometry: BPD ?35.9 ?mm ? 17w 0d ?Hadgermania OFD ?54.2 ?mm ? 18w 0d ?Nicolaides HC ?146.4 ?mm ?17w 6d ?Hadlock Cerebellum tr ?18.4 ? mm ?18w 1d ?Nicolaides AC ?127.4 ?mm ?18w 2d ?28% ?Hadlock Femur ?27.9 ? mm ?18w 4d ?Hadlock Humerus ?26.1 ?mm ? 18w 1d ?Felecia Weight Calculation: EFW ? 234 ? g ? 18% ?Hadlock EFW (lb,oz) ? 0 lb 8 ?oz EFW by ?Hadlock ([id number]-FL) Head / Face / Neck Biometry: Thread Milling Machine Set Up Operator ? 6.1 ? mm CM ?4.4 ? [...] view. Superior vena cava. Inferior vena cava. 5-hxkvse-mjzrunh view. Cardiac position. Cardiac size. Cardiac ? [...] SEARS Study Date: 07/18/2023 10:49am Pat. NO: [id number] Referring MD: CARMELITA MG Site: [facility] Biomed Tech: Caroline Azar RDMS : 1990 Age: 32 [...] 0 lb 8 oz EFW by Hadlock ([id number]-FL) Head / Face / Neck Biometry: Thread Milling Machine Set Up Operator 6.1 mm CM 4.4 mm Nasal bone [...] Bicaval view.Superior vena cava. Inferior vena cava. 8-usllnj-wdtqeze view. Cardiacposition. Cardiac size. Cardiac rhythm. Right [...] ----- Thank-you for referring your patient for [facility] consult & ultrasoundassessment. I discussed the [...] appears long and closed. Dwayne Vieyra MD [facility] US ORDERABL ES * PAP SMEAR (11/04/1998 1:18 PM CDT) Unlabelled DNR [facility] Biopsy Sent DNR [facility] Source VAG,CERV,E NDOCERV [facility] LMP POST [facility] PARA 3 [facility] 2 [facility] Clinical History DNR [facility] Therapy DNR [facility] Last Pap Diagnosis WITHIN NORMAL LIMITS [facility] PAP Date [id number] [facility] Specimen # DNR [facility] Tissue DNR [facility] Tissue Date DNR [facility] Statement of Adequacy [facility] Comment: SATISFACTORY FOR INTERPRETATION POST MENOPAUSAL PATIENT. ??NO ENDOCERVICAL CELLS SEEN. General Categorization DNR [facility] Descriptive Diagnosis [facility] Comment: WITHIN NORMAL LIMITS ATROPHIC CELL PATTERN Recommendations DNR QUES [facility] DNR 114,,,,,, [facility] DNR DNR [facility] DNR DNR [facility] DNR DNR [facility] . [facility] Comment: ?PAP SMEARS ARE SUBJECT TO BOTH FALSE NEGATIVE AND FALSE ? POSITIVE RESULTS EVIDENCED BY DATA PUBLISHED IN THE ? MEDICAL LITERATURE. ??YOUR PATIENT'S RESULT SHOULD BE ? INTERPRETED IN THIS CONTEXT, TOGETHER WITH THE PATIENT'S ? HISTORY AND CLINICAL FINDINGS. TESTING LOCATION ? [facility] ? [facility]. [id number] ? PHONE NUMBERS FOR CYTOLOGY INQUIRES, INCLUDING SLIDE REQUESTS ? EXT. [id number] ?? EXT. [id number] 11/02/1998 Dora Gusman MD LABORATORY [facility] from Last 3 Months or Most Recently Relevant to Health Maintenance Care Teams Lifestyle Consultant Relationship Specialty Start Date End Date No Ref-Primary, Physician PCP - General 06/15/23 Amado Chester MD [address] [place] [address] Assigned OBGYN Provider 08/04/23
--- OUTSIDE RECORDS SUMMARY | 2023-10-02 23:32 | XMS_ITS | Clinical Summary ---
Author Name Unknown Organization [facility] Address [place], [place] [address] Care Team Providers Care Playground Worker Name Role Phone Iris Rapp MD Primary Care Provider [phone] Allergies No known active allergies Medications Medication Sig Dispensed Refills Start Date End Date Status acetaminophen 325 mg cap Take 1-2 Tablets by mouth every 4 hours if needed. Active Trinatal Rx 1 60 mg iron-1 mg tablet 02/09/2021 Active enoxaparin (LOVENOX) 40 mg/0.4 mL injection Daily 09/03/2021 Ac tive Active Problems Problem Noted Date Diagnosed Date [facility] Supervision of high-risk Overview: [facility] CONSULTATION ON October 11, 2021 --Virtual Visit [facility] pt was previous [facility] pt in 2020 CONSULT VISIT ALERT: Create and link episode at day of visit . Document in Dating section GA = 13w5d, EDC = 04/13/22 REASON FOR CONSULT: planning TODAY'S APPOINTMENT: MD Consultation PRIMARY DIAGNOSIS: 31 y.o. Estimated Date of Delivery:04/13/22 ?? CHTN ?? Hx large femoral DVT at 32w in last in 2020 --is currently on Lovenox 40 mg daily ?? Closely spaced (vag delivery 02/2021) ?? H/O PPH 2 weeks after delivery requiring transfusion 2020 ?? Pt saw [place] [facility] 03/2021--she will have records faxed over ?? Migraines ?? Hx frequent UTIs ?? Hx depression ?? BMI = 28 LAST GROWTH: 09/04/21 (8w2d) EDC 04/12/22 REFERRING PHYSICIAN/PHONE/LAST UPDATE[phone] Primary MD approves scheduling of recommended ultrasounds/testing: Yes SPECIALISTS/CONSULTS: [place] [facility] Include: Specialty MD Clinic Name Phone# [place] and ADDED TO PATIENT CARE TEAM Yes CARE COORDINATION: GENETICS: Interested, checking insurance PROCEDURES: PERTINENT LABS: B POS PERTINENT MEDS: Lovenox 40 mg daily, BP cuff, PNV Preferred delivery location: PLAN OF CARE: Vaginal delivery 03/01/2021 COVID-19 02/26/2021 Chronic hypertension 02/11/2021 Anxiety 02/11/2021 Overview: Has been on zoloft in the past Acute deep vein thrombosis ( DVT) of femoral vein of left lower extremity 01/29/2021 Overview: Currently on therapeutic LMWH 100 milligrams subcutaneous 2x daily Resolved Problems Problem Noted Date Diagnosed Date Resolved Date Preexisting hypertension com plicating , antepartum, third trimester 01/29/2021 0 02/28/2021 [facility] Supervision of high risk 01/28/2021 2021 Overview: [facility] CONSULTATION ON 01/28/21 --LUIS to [facility] on 02/01/21 (34w1d) NEXT VISIT ALERTS: ?? 02/26/21 Do pre admit COVID-19 test, needs admission instructions. ?? Discontinuation of LMWH (24 hours prior to admission) and restart LMWH 12-24 hours post delivery (24 hours post neuraxial access) per [facility] note PLANS & FUTURE APPOINTMENTS: - OB visits: Through 03/05/21 TESTING PLAN: Weekly - Testing: Through 03/05/21 GROWTH PLAN: L2 on 02/11/21 - Growth: Next DELIVERY PLAN: :IOL at 38 wks weeks - Scheduled delivery: 02/28/21 Induction - Preferred delivery location: [place] Patient is on Therapeutic Lovenox. Refer to [facility] Anticoagulation Doc Flow Sheet every visit Routine Labs: Platelet count: 02/01/21 378,000 Monthly: Due done 02/01/21-03/04/21 Lovenox Levels (for therapeutic dosing only): Due ~ 02/01/21=1.09 (No more lovenox levels during per Dr. Ureña unless dosing changes. ) Next draw: PRIMARY DIAGNOSIS: 30 y.o. Estimated Date of Delivery: 03/14/21 Large occlusive DVT, left femoral vein, dx at [facility] (01/21/21) - 01/22/21 admitted to [facility] for evaluation and management of worsening pain with a known left femoral DVT - 01/23/21 left AMA prior to evaluation by network intelligence analyst DEVIKAN --checking home BP Has been evaluated a few times for PIH BMI = 30.5 LAST GROWTH: 02/11/21 L2 35w4d EFW 2369 grams, percentile: 20% 10/23/20 anatomy screen, EIF REFERRING PHYSICIAN/PHONE/LAST UPDATE: Janie Pepe MD, [facility] [place], Primary MD approves scheduling of recommended ultrasounds/testing: Yes SPECIALISTS/CONSULTS: Include: Specialty MD Clinic Name Phone# [place] and ADDED TO PATIENT CARE TEAM Yes CARE COORDINATION: GENETICS: Low risk NIPS PROCEDURES: PERTINENT MEDS: lovenox 100 mg BID Oxycodone Tylenol, PNV ORTIZ signed for [facility]: MATERNAL CARE COORDINATION: CARE COORDINATION: GAUGE MAKER APPRENTICE: ROUTINE OB: COVID-19 vaccine: Date(s) given: declined Tdap vaccine: GIVE BETWEEN 27 AND 36 WEEKS Date given: 01/08/21 COMPASS: Initial complete YES Part 2 between 32w-36w completed YES ANXIETY/DEPRESSION SCREEN: Initial screen: 02/01/21 Date: 34w1d GA: PHQ-9 score: 1 ROMEL-7 score:5 Previous history of anxiety or depression ? YES DX in high school, prior to she has taken buspar (did not work well per pt) and prozac . ROUTINE LABS: Blood type: B Pos Antibody screen: Neg Rhogam needed? NO Last pap: 09/2019 per pt report Plan for Gestational Diabetes screening: Screen done 12/18/20: 92 Treponema Pallidum: DRAW @ 28 WEEKS Date drawn: 02/01/21=negative GBS: 02/19/21= negative Hemoglobin: Initial: 08/14/20 = 14.2 28 wk: 12/18/20 = 13.1 34wk 02/01/21=11.6 ADDITIONAL PERTINENT LABS: 02/01/21 Factor II= negative Factor V =negative 02/01/21 Renal panel, creatine =0.63 PPTL& DELIVERY SCHEDULING: Do COVID testing with in 3-5 days of scheduled delivery @ a main [facility] site H&P needed 30 days before delivery Date: PPTL: Yes No Is Medical assistance? Yes PPTL Permit signed: Date: Scanned date: CHECKLIST FOR SCHEDULING PROCEDURES: Call [phone] for [place] and [phone] for [employer] Procedure: Induction Hospital: [facility] Unit: L&D Date & Time of procedure: 02/28/21 730 PM Feliciano Score if induction: Pertinent information: DVT left leg, therapeutic lovenox Gestational age on procedure date? 40 MD doing procedure: [facility] LB Date scheduled: 02/19/2021 when patient was 36w5d. Scheduling MD & RN: KASSANDRA/JENNIFER Notifications: Hospitalist Delivery-[facility] building construction estimator notified through [employer] inbox? Yes [facility] MD building construction estimator notified via [employer] inbox? Yes Primary MD notified via [employer] inbox? Yes Primary MD clinic called if not [facility]? Not Applicable On [facility] calendar? Yes Care Coordination notified? Yes H&P/PPTL: PPTL permit signed? No H&P and Plan in chart? Yes [facility] appointment made for H&P with DIESEL TECHNICIAN within 30 days of procedure? Yes 02/01/21 Date: Regardless of vaccination status, all procedures require a COVID-19 test . Patients should be scheduled for a COVID-19 test within 3-5 days prior to the scheduled procedure to be done in main [facility] Clinic 02/26/21Date: * Patient notification: Patient notified of procedure date? Yes Written admission instructions given to patient via AVS? No PLAN OF CARE: per consult note on 01/29/21: care: ?? LUIS recommended:Yes ??Recommendations for Delivery: ?? Hospital Location:[facility] Mother Baby [place] ?? Timin wks gestation ?? Mode:IOL at 38 wks weeks - scheduled No ?? Provider: [facility] ?? Special considerations ? Discontinue Lovenox 24 hours prior to IOL or at the onset of contractions DVT complicating , third trimester 01/22/2021 02/28/2021 related leg pain i n third trimester, antepartum 01/22/2021 02/28/2021 Overview: transfer from [facility] 32w 5d gestation of 01/22/2021 01/29/2021 Anxiety 11/01/2012 01/29/2021 Family History Medical History Relation Name Comments No Known Problems Father COPD Maternal Grandfather Cancer Maternal Grandmother lymphom a Deep vein thrombosis Mother HX DVT in legs -on coumadin Cancer-prostate Paternal Grandfather Heart attack Paternal Grandmother No Known Problems Sister 1 No Known Problems Sister 2 Relation Name Status Comments Daughter Alive Father Alive Maternal Grandfather Maternal Grandmother Mother Alive Paternal Grandfather Paternal Grandmother Sister 1 Alive Sister 2 Alive Social History Tobacco Use Types Packs/Day Years Used Date Smoking Tobacco: Never Smokeless Tobacco: Never Comments:Grandmother smokes Alcohol Use Standard Drinks/Week Comments Not Currently 0 (1 standard drink = 0.6 oz pur e alcohol) Sex and Gender Information Value Date Recorded Sex Assigned at Not on file Gender Identity Not on file Sexual Orientation Not on file Obstetrics History Para Term AB IAB SAB Ectopic Multiple Livin g Live Births 4 1 1 2 2 1 1 Date Outcome GA Total Labor Labor/2nd/3rd Weight Sex Delivery Anes PTL Jaimee A1 A5 Name Cl in 2017 SAB 9w0 d 2018 SAB 11w 0d 03/01 Term 38w 1d 2h 52m 2h 34m/0h 15m/0h 03m 2.64 kg (5 lb 13 oz) F VAGINAL LUCIAN Epidu ral Denise ng 8 9 HARDE R,BG PRINCE KYLEE Reyes n, Neena Sanchez DO Complications:Precipitous la bor (< 3 hours) Delivery Location:Hospital ( [facility] [address] TRIAGE) Comments:DVT at 32 wee ks, CHTN--no meds, monitored at home, PPH 3 wks after delivery (was on Lovenox) Last Filed Vital Signs Vital Sign Reading Time Taken Comments Blood Pressure 155/86 10/11/2021 2:08 PM CDT home BP reading Pulse 81 03/16/2021 10:33 PM CDT Temperature 36.4 ??C (97.6 ??F) 03/16/2021 9 :28 PM CDT Respiratory Rate 16 03/16/2021 9:28 PM CDT Oxygen Saturation 100% 03/16/2021 10: 33 PM CDT Inhaled Oxygen Concentration - - Weight 95.3 kg (210 lb) 10/11/2021 2:08 PM CDT Height 182.9 cm (6') 10/11/2021 2:08 PM CDT Body Mass Index 28.48 10/11/2021 2:08 PM CDT Plan of Treatment Health Maintenance Due Date Last Done Comments Tdap 10/07/2003 BMI (ht and wt on same day) for age 18+ 2010 Hepatitis C screening for age 18-79 2010 Tetanus booster 2012 Depression screening for age 12+ 02/11/2022 02/11/2021, 02/04/2021, 02/03/2021, Additional history exists COVID-19 vaccine series (2022- season) 2023 Influenza for age 9-49 02/11/2024 Pap test for age 21-65 03/27/2026 03/27/2023, 2022 HIV for age 15-65 Completed 08/14/2020 Pneumococcal series for age 6-64 Aged Out No longer eligible based on patient's age to complete this topic Procedures Procedure Name Priority Date/Time Associated Diagnosis Comments HPV THIN PREP Routine 03/27/2023 4:20 PM CDT HIV EXTERNAL Routine 08/14/2020 from Last 3 Months or Most Recently Relevant to Health Maintenance Results * HPV HIGH RISK (03/27/2023 4:20 PM CDT) TYPE 16 Negative Negative 03/31/2023 5:32 AM CDT [facility] TYPE 18 Negative Negative 03/31/2023 5:32 AM CDT [facility] OTHER HIGH RISK TYPES Negative Negative 03/31/2023 5:32 AM CDT [facility] Other (Cervical) 03/27/2023 4:20 PM CDT 03/29/2023 2:49 PM CDT Narrative [facility] - 03/31/2023 5:32 AM CDT HPV types 16, 18, 31, 33, 35, 39, 45, 51, 52, 56, 58, 59, 66 and 68 DNA were undetectable or below the pre-set threshold. Methodology: Bacilio Yvonne 4800 HPV Test Celena Mccabe MD MICROBIOLOGY [facility] [address] [place] [address], * HIV EXTERNAL (08/14/2020) EXTERNAL HIV Negative [facility] Blood BLOOD SPECIMEN / Unknown September Tammy [facility] [place] [address] [place] [address] from Last 3 Months or Most Recently Relevant to Health Maintenance Advance Directives * Full Code (Latest Code Status on File) Date Activated Date Inactivated Comments 02/28/2021 9:40 PM 03/02/2021 4:52 PM Question Answer Comments Code Status Discussion: Not Discussed * Full Code Date Activated Date Inactivated Comments 02/28/2021 9:40 PM 02/28/2021 9:40 PM Question Answer Comments Code Status Discussion: Not Discussed * Full Code Date Activated Date Inactivated Comments 01/22/2021 7:53 PM 01/23/2021 3:23 PM Question Answer Comments Code Status Discussion: Discussed Care Teams Playground Worker Relationship Specialty Start Date End Date Iris Rapp MD [address] [place] [address] PCP - General Obstetrics and Gynecology 01/28/21
== END 2023-10-02 23:30 | disposition home or self-care (01) ==
LOC: ED 23:30
PROVIDERS: Emergency Provider Emergency Medicine; PCP Family Medicine
DX: M79.605 Pain in left leg (principal); Z33.1 Pregnant state, incidental; Z86.718 Personal history of other venous thrombosis and embolism
CPT/HCPCS: 93971; 99284

== ENCOUNTER 2023-10-17 16:21 | Outpatient (CLI) | payer MEDICAID, SELFPAY ==
[2023-10-17] VITALS (13 sets, daily range): BP systolic 105–130; BP diastolic 54–69; PULSE 76–92
--- OUTSIDE RECORDS SUMMARY | 2023-10-17 16:25 | XMS_ITS | Encounter Summary ---
Author Name Unknown Organization [facility] Address [address] [place] [address] Care Team Providers Care Fruit Washer Name Role Phone No Ref-Primary, Physician Primary [...] on filedocumented in this encounter Care Teams Fruit Washer Relationship Specialty Start Date End Date No Ref-Primary, Physician PCP - General 06/15/23 documented as of this encounter
--- OUTSIDE RECORDS SUMMARY | 2023-10-17 16:25 | XMS_ITS | Encounter Summary ---
Author Name Unknown Organization [facility] Address [facility] [place] [address] Care Team Providers Care Soil Technologist Name Role Phone No Ref-Primary, Physician Primary Care Provider Reason for Visit * Reason Comments Ultrasound L2- Hx DVT/Embolism, CHTN, Anx/Dep, Hx PPH Consult Hx DVT/Embolism, CHT N, Anx/Dep, Hx PPH Encounter Details Date Type Department Care Team (Late st Contact Info) Description 07/10/[address] [facility] [place] [address] [place] [address] Dory Franco, RN Ultrasound (L2- Hx DVT/Embolism, [...] on filedocumented in this encounter Care Teams Soil Technologist Relationship Specialty Start Date End Date No Ref-Primary, Physician PCP - General 06/15/23 documented as of this encounter
--- OUTSIDE RECORDS SUMMARY | 2023-10-17 16:25 | XMS_ITS | Encounter Summary ---
Author Name Unknown Organization [facility] Address [address] [place] [address]. [place] [address] Care Team Providers Care Train Operations Supervisor Name Role Phone No Ref-Primary, Physician Primary Care Provider Encounter Details Date Type Department Care Team (Late st Contact Info) Description 08/02/2023 2:00 PM BIT BENDER Office Visit [facility] Maternal [facility] [address] [place] [address] Peg Oleary MD [address] [place] [address] Suspected anomaly, antepartum, single or [...] in the Maternal- Medicine Center at the [facility] today. For a detailed report of the ultrasound examination, please see the ultrasound report which can be found under the imaging tab. If you have questions regarding today's evaluation or if we can be of further service, please contact the Maternal- Medicine Center. Peg Oleary MD Stranding Machine Operator, DISTRIBUTOR OF DIRECTORIES Maternal- Medicine [phone] (Pager) BENDER documented in this encounter Plan of Treatment [...] during documented in this encounter Care Teams Train Operations Supervisor Relationship Specialty Start Date End Date No Ref-Primary, Physician PCP - General 06/15/23 documented as of this encounter
--- OUTSIDE RECORDS SUMMARY | 2023-10-17 16:25 | XMS_ITS | Encounter Summary ---
Author Name Unknown Organization [facility] Address [address] [place] [address] Care Team Providers Care Automotive Electrical Fitter Name Role Phone No Ref-Primary, Physician Primary Care Provider Reason for Referral * Diagnostic Imaging Ultrasound (Routine) - Pending Review Specialty Diagnoses / Procedures Referred By Contac t Referred To Contact Radiology. Diagnoses Personal history of DVT (deep vein thrombosis) Chronic hypertension History of deep venous thrombosis Procedures [facility] US Comprehensive Single F/U [facility] US Comprehensive Single F/U Peg Oleary MD [address] [address] Referral ID Status Reason Start Date Expiration Date V isits Requested Visits Authorized [id number] Pending Review 07/18/2023 07/17/2024 1 1 E DRILL OPERATOR Reason for Visit * Diagnostic Imaging Ultrasound (Routine) - Pending Review Specialty Diagnoses / Procedures Referred By Contac t Referred To Contact Radiology. Diagnoses Personal history of DVT (deep vein thrombosis) Chronic hypertension History of deep venous thrombosis Procedures [facility] US Comprehensive Single F/U [facility] US Comprehensive Single F/U Peg Oleary MD [address] [facility] [address] [place] [address] Referral ID Status Reason Start Date Expiration Date V isits Requested Visits Authorized [id number] Pending Review 07/18/2023 07/17/2024 1 1 Encounter Details Date Type Department Care Team (Latest Contact Info) Description 08/02/2023 10:44 AM RAISE DRILL OPERATOR - 08/02/2023 11:59 PM RAISE DRILL OPERATOR Hospital Encounter [facility] Maternal Medicine [facility] [address] [place] [phone] Peg Oleary MD [address] [place], [place] [address] History of deep venous thrombosis Discharge Disposition: [...] Procedure Name Priority Date/Time Associated Diagnosis Comments [facility] US COMPREHENSIVE SINGLE F/U Routine 08/02/2023 12:04 PM RAISE DRILL OPERATOR History of deep venous thrombosis documented in this encounter Results * [facility] US Comprehensive Single F/U (08/02/2023 12:04 PM RAISE DRILL OPERATOR) Anatomical Region Laterality Modality Ultrasound 08/02/2023 11:4 0 AM RAISE DRILL OPERATOR Impressions 08/02/2023 3:43 PM RAISE DRILL OPERATOR IMPRESSION ----- 1. [place] intrauterine at 21w 0d gestational age here for completion of anatomy. 2. The remaining anatomic survey was completed, no anomalies commonly detected by ultrasound were identified within the limits of ultrasound. 3. The amniotic fluid volume appeared normal. Narrative 08/02/2023 3:43 PM RAISE DRILL OPERATOR ?Comp Follow Up ----- Pat. Name: RON SEARS ? Study Date: ??08/02/2023 11:40am Pat. NO: ??[id number] ?Referring ??MD: CARMELITA MG Site: ??[facility] ? Data Capture Clerk: ??Jackie Mccarthy RDMS : ??1990 ?Age: ?? [...] SEARS Study Date: 08/02/2023 11:40am Pat. NO: [id number] Referring MD: CARMELITA MG Site: [facility] Data Capture Clerk: Jackie Mccarthy RDMS : 1990 Age: 32 [...] embolism documented in this encounter Care Teams Automotive Electrical Fitter Relationship Specialty Start Date End Date No Ref-Primary, Physician PCP - General 06/15/23 documented as of this encounter
--- OUTSIDE RECORDS SUMMARY | 2023-10-17 16:25 | XMS_ITS | Encounter Summary ---
Author Name Unknown Organization [facility] Address [address] [place] [address] Care Team Providers Care Pot Puller Name Role Phone No Ref-Primary, Physician Primary [...] on filedocumented in this encounter Care Teams Pot Puller Relationship Specialty Start Date End Date No Ref-Primary, Physician PCP - General 06/15/23 documented as of this encounter
--- OUTSIDE RECORDS SUMMARY | 2023-10-17 16:25 | XMS_ITS | Clinical Summary ---
Author Name Unknown Organization [facility] Address [place], [place] [address] Care Team Providers Care Insurance Consultant Name Role Phone Iris Rapp MD Primary Care Provider [phone] Allergies No known active allergies Medications Medication Sig Dispensed Refills Start Date End Date Status acetaminophen 325 mg cap Take 1-2 Tablets by mouth every 4 hours if needed. Active Trinatal Rx 1 60 mg iron-1 mg tablet 02/09/2021 Active enoxaparin (LOVENOX) 40 mg/0.4 mL injection Daily 09/03/2021 Ac tive Active Problems Problem Noted Date Diagnosed Date [facility] Supervision of high-risk Overview: [facility] CONSULTATION ON October 11, 2021 --Virtual Visit [facility] pt was previous [facility] pt in 2020 CONSULT VISIT ALERT: [...] delivery requiring transfusion 2020 ?? Pt saw [place] [facility] 03/2021--she will have records faxed over ?? Migraines ?? Hx frequent UTIs ?? Hx depression ?? BMI = 28 LAST GROWTH: 09/04/21 (8w2d) EDC 04/12/22 REFERRING PHYSICIAN/PHONE/LAST UPDATE[phone] Primary MD approves scheduling of recommended ultrasounds/testing: [...] , antepartum, third trimester 01/29/2021 0 02/28/2021 [facility] Supervision of high risk 01/28/2021 2021 Overview: [facility] CONSULTATION ON 01/28/21 --LUIS to [facility] on 02/01/21 (34w1d) NEXT VISIT ALERTS: [...] delivery: 02/28/21 Induction - Preferred delivery location: [place] Patient is on Therapeutic Lovenox. Refer to [facility] Anticoagulation Doc Flow Sheet every visit Routine Labs: Platelet count: 02/01/21 378,000 Monthly: Due done 02/01/21-03/04/21 Lovenox Levels (for therapeutic dosing only): Due ~ 02/01/21=1.09 (No more lovenox levels during per Dr. Ureña unless dosing changes. ) Next draw: PRIMARY DIAGNOSIS: 30 y.o. Estimated Date of Delivery: 03/14/21 Large occlusive DVT, left femoral vein, dx at [facility] (01/21/21) - 01/22/21 admitted to [facility] for evaluation and management of worsening pain with a known left femoral DVT - 01/23/21 left AMA prior to evaluation by machine technician DEVIKAN --checking home BP Has been evaluated a few times for PIH BMI = 30.5 LAST GROWTH: 02/11/21 L2 35w4d EFW 2369 grams, percentile: 20% 10/23/20 anatomy screen, EIF REFERRING PHYSICIAN/PHONE/LAST UPDATE: Janie Pepe MD, [place], Primary MD approves scheduling of recommended ultrasounds/testing: Yes SPECIALISTS/CONSULTS: Include: Specialty MD Clinic Name Phone# [place] and ADDED TO PATIENT CARE TEAM Yes CARE COORDINATION: GENETICS: Low risk NIPS PROCEDURES: PERTINENT MEDS: lovenox 100 mg BID Oxycodone Tylenol, PNV ORTIZ signed for [facility]: MATERNAL CARE COORDINATION: CARE COORDINATION: LYE PEEL OPERATOR: ROUTINE OB: COVID-19 vaccine: Date(s) given: declined [...] days of scheduled delivery @ a main [facility] site H&P needed 30 days before delivery Date: PPTL: Yes No Is Medical assistance? Yes PPTL Permit signed: Date: Scanned date: CHECKLIST FOR SCHEDULING PROCEDURES: Call [phone] for [place] and [phone] for [employer] Procedure: Induction Hospital: [place] Unit: L&D Date & Time of procedure: 02/28/21 730 PM Feliciano Score if induction: Pertinent information: DVT left leg, therapeutic lovenox Gestational age on procedure date? 40 MD doing procedure: [facility] LB Date scheduled: 02/19/2021 when patient was 36w5d. Scheduling MD & RN: KASSANDRA/JENNIFER Notifications: Hospitalist Delivery-[facility] financial controller notified through [employer] inbox? Yes [facility] MD financial controller notified via [employer] inbox? Yes Primary MD notified via [employer] inbox? Yes Primary MD clinic called if not [facility]? Not Applicable On [facility] calendar? Yes Care Coordination notified? Yes H&P/PPTL: PPTL permit signed? No H&P and Plan in chart? Yes [facility] appointment made for H&P with SAFETY ENGINEER PRESSURE VESSELS within 30 days of procedure? Yes 02/01/21 Date: Regardless of vaccination status, all procedures require a COVID-19 test . Patients should be scheduled for a COVID-19 test within 3-5 days prior to the scheduled procedure to be done in main [facility] Clinic 02/26/21Date: * Patient notification: Patient notified of procedure date? Yes Written admission instructions given to patient via AVS? No PLAN OF CARE: per consult note on 01/29/21: care: ?? LUIS recommended:Yes ??Recommendations for Delivery: ?? Hospital Location:[facility] Mother Baby [place] ?? Timin wks gestation ?? Mode:IOL at 38 wks weeks - scheduled No ?? Provider: [facility] ?? Special considerations ? Discontinue Lovenox 24 hours prior to IOL or at the onset of contractions DVT complicating , third trimester 01/22/2021 02/28/2021 related leg pain i n third trimester, antepartum 01/22/2021 02/28/2021 Overview: transfer from [place] 32w 5d gestation of 01/22/2021 01/29/2021 Anxiety [...] bor (< 3 hours) Delivery Location:Hospital ( [facility] [address] L&D TRIAGE) Comments:DVT at [...] 16 Negative Negative 03/31/2023 5:32 AM CDT [facility] TYPE 18 Negative Negative 03/31/2023 5:32 AM CDT [facility] OTHER HIGH RISK TYPES Negative Negative 03/31/2023 5:32 AM CDT [facility] Other (Cervical) 03/27/2023 4:20 PM CDT 03/29/2023 2:49 PM CDT Narrative [facility] - 03/31/2023 5:32 AM CDT HPV types 16, 18, 31, 33, 35, 39, 45, 51, 52, 56, 58, 59, 66 and 68 DNA were undetectable or below the pre-set threshold. Methodology: Bacilio Yvonne 4800 HPV Test Celena Mccabe MD MICROBIOLOGY [facility] [address] [place] [address], * HIV EXTERNAL (08/14/2020) EXTERNAL HIV Negative [facility] Blood BLOOD SPECIMEN / Unknown September Tammy [facility] [address] [place] [address] from Last 3 Months or Most Recently [...] Comments Code Status Discussion: Discussed Care Teams Insurance Consultant Relationship Specialty Start Date End Date Iris Rapp MD [address] [place] [address] PCP - General Obstetrics and Gynecology 01/28/21
--- OUTSIDE RECORDS SUMMARY | 2023-10-17 16:25 | XMS_ITS | Referral Summary ---
Author Name Unknown Organization [facility] Address [address] [place] [address] Care Team Providers Care Submarine Advisory Team Watch Officer Name Role Phone No Ref-Primary, Physician Primary Care Provider Amado Chester MD Unavailable [phone] Encounters Date Type Department Care Team Description 08/02/2023 Travel 08/02/2023 2:00 PM INSPECTOR TECHNICIAN Office Visit [facility] [place] [address] [place] [address] Amado Chester MD Suspected anomaly, antepartum, single or unspecified fetus (Primary Dx); Personal history of DVT (deep vein thrombosis); Chronic hypertension in ; History of deep vein thrombosis (DVT) during 08/02/2023 10:44 AM INSPECTOR TECHNICIAN - 08/02/2023 11:59 PM INSPECTOR TECHNICIAN Hospital Encounter [facility] [place] [address] [place] [phone] Amado Chester MD History of deep venous thrombosis Discharge Disposition: Home or Self Care 08/02/2023 10:44 AM INSPECTOR TECHNICIAN - 08/02/2023 11:59 PM INSPECTOR TECHNICIAN Hospital Encounter [facility] [address] [place] [phone] Amado Chester MD Urfmusfet History of deep venous thrombosis Discharge Disposition: Home or Self Care 07/26/2023 Travel from Last 3 Months Allergies No known [...] Comments Blood Pressure 119/82 07/18/2023 12:05 PM INSPECTOR TECHNICIAN Pulse 78 07/18/2023 12:05 PM INSPECTOR TECHNICIAN Temperature - - Respiratory Rate 18 07/18/2023 12:05 PM INSPECTOR TECHNICIAN Oxygen Saturation 99% 07/18/2023 12:05 PM INSPECTOR TECHNICIAN Inhaled Oxygen Concentration - - Weight 105.5 kg (232 lb 8 oz) 07/18/2023 12:05 P M INSPECTOR TECHNICIAN Height 180.3 cm (5' 11) 07/18/2023 12:05 PM INSPECTOR TECHNICIAN Body Mass Index 32.43 07/18/2023 12:05 PM INSPECTOR TECHNICIAN Plan of Treatment Not on file Procedures Procedure Name Priority Date/Time Associated Diagnosis Comments [facility] US COMPREHENSIVE SINGLE F/U Routine 08/02/2023 12:04 PM INSPECTOR TECHNICIAN History of deep venous thrombosis ECHO COMPLETE Routine 08/02/2023 1 2:01 PM INSPECTOR TECHNICIAN History of deep venous thrombosis HCL PAP SMEAR Routine 11/04/1998 1:18 PM CDT Gynecologic Examination from Last 3 Months or Most Recently Relevant to Health Maintenance Results * [facility] US Comprehensive Single F/U (08/02/2023 12:04 PM INSPECTOR TECHNICIAN) Anatomical Region Laterality Modality Ultrasound 08/02/2023 11:4 0 AM INSPECTOR TECHNICIAN Impressions 08/02/2023 3:43 PM INSPECTOR TECHNICIAN IMPRESSION ----- 1. Carrizales intrauterine at 21w 0d gestational age here for completion of anatomy. 2. The remaining anatomic survey was completed, no anomalies commonly detected by ultrasound were identified within the limits of ultrasound. 3. The amniotic fluid volume appeared normal. Narrative 08/02/2023 3:43 PM INSPECTOR TECHNICIAN ?Comp Follow Up ----- Pat. Name: RON SEARS ? Study Date: ??08/02/2023 11:40am Pat. NO: ??[id number] ?Referring ??: CARMELITA MG Site: ??[facility] ? Urban Sociologist: ??Jackie Mccarthy RDMS : ??1990 ?Age: ?? [...] SEARS Study Date: 08/02/2023 11:40am Pat. NO: [id number] Referring MD: CARMELITA MG Site: [facility] Urban Sociologist: Jackie Mccarthy RDMS : 1990 Age: 32 [...] volume appeared normal. Amado Chester MD [facility] US ORDERABLE S * ECHO COMPLETE (08/02/2023 12:01 PM INSPECTOR TECHNICIAN) Anatomical Region Laterality Modality Ultrasound 08/02/2023 10:5 1 AM INSPECTOR TECHNICIAN Narrative 08/02/2023 11:39 AM INSPECTOR TECHNICIAN [id number]^HENRIK^AMADO ? Study ID: [id number] ?[facility] ?[facility] ?[address] ?[place] [address] ? Echocardiogram Name: RON SEARS Study Date: [...] to the left atrium. There is laminar rzvdp-ys-fapu shunting across the foramen ovale. Atrioventricular valves: [...] Procedure Note Riana Hampton MBBS - 08/02/2023 [id number] Study ID:[id number] [facility]'s [address] [address] Echocardiogram Name: RON SEARS Study Date: 08/02/2023 10:51 AM Patient Location:[facility] Gender: Female Patient Class:Outpatient : 1990 Age: 32 yrs Ordering Provider: AMADO CHESTER Referring Provider: CARMELITA MG Performed By: Markus Castle RDCS Reading Physician: Riana Hampton MD Reason For Study: History of deep venous thrombosis Data: Number of fetuses: This is a carrziales gestation. Duedate: 12/13/2023. Gestational age: 21w. Specific [...] in to the left atrium. There is rlnflqtnixer-sm-rtye shunting across the foramen ovale. Atrioventricular valves: [...] MD CV PEDS ECHO ORDERAB LES * PAP SMEAR (11/04/1998 1:18 PM CDT) Unlabelled DNR [facility] Biopsy Sent DNR [facility] Source VAG,CERV,E NDOCERV [facility] LMP POST [facility] PARA 3 [facility] 2 [facility] Clinical History DNR QUE [facility] Therapy DNR [facility] Last Pap Diagnosis WITHIN NORMAL LIMITS [facility] PAP Date [id number] [facility] Specimen # DNR [facility] Tissue DNR [facility] Tissue Date DNR [facility] Statement of Adequacy [facility] Comment: SATISFACTORY FOR INTERPRETATION POST MENOPAUSAL PATIENT. ??NO ENDOCERVICAL CELLS SEEN. General Categorization DNR [facility] Descriptive Diagnosis [facility] Comment: WITHIN NORMAL LIMITS ATROPHIC CELL PATTERN Recommendations DNR [facility] DNR 114,,,,,, [facility] DNR DNR [facility] DNR DNR [facility] DNR DNR [facility] . [facility] Comment: ?PAP SMEARS ARE SUBJECT TO BOTH FALSE NEGATIVE AND FALSE ? POSITIVE RESULTS EVIDENCED BY DATA PUBLISHED IN THE ? MEDICAL LITERATURE. ??YOUR PATIENT'S RESULT SHOULD BE ? INTERPRETED IN THIS CONTEXT, TOGETHER WITH THE PATIENT'S ? HISTORY AND CLINICAL FINDINGS. TESTING LOCATION ? THIS [facility]FOR[facility] ? [address] [facility]. [address] ? PHONE NUMBERS FOR CYTOLOGY INQUIRES, INCLUDING SLIDE REQUESTS ? EXT. [id number] ?? EXT. [id number] 11/02/1998 Dora Gusman MD LABORATORY [facility] from Last 3 Months or Most Recently Relevant to Health Maintenance Care Teams Submarine Advisory Team Watch Officer Relationship Specialty Start Date End Date No Ref-Primary, Physician PCP - General 06/15/23 Amado Chester MD [address] [address] Assigned OBGYN Provider 08/04/23
--- OUTSIDE RECORDS SUMMARY | 2023-10-17 16:25 | XMS_ITS | Encounter Summary ---
Author Name Unknown Organization [facility] Address [address] [place] [address] Care Team Providers Care [employer] Name Role Phone No Ref-Primary, Physician Primary Care Provider Reason for Referral * Diagnostic Imaging Ultrasound (Routine) - Pending Review Specialty Diagnoses / Procedures Referred By Contac t Referred To Contact Radiology. Diagnoses Personal history of DVT (deep vein thrombosis) Chronic hypertension History of deep venous thrombosis Procedures MF US Comprehensive Single F/U MF US Comprehensive Single F/U Amado Chester MD [address] [place] [address] Referral ID Status Reason Start Date Expiration Date V isits Requested Visits Authorized [id number] Pending Review 07/18/2023 07/17/2024 1 1 SCRIPT CLERK * (Routine) - Closed Specialty Diagnoses / Procedures Referred By Contac t Referred To Contact Cardiology Diagnoses Personal history of DVT (deep vein thrombosis) Chronic hypertension History of deep venous thrombosis Procedures Echo (TTE) Complete Amado Chester MD [address] [address] [facility] [address] [place] [phone] Referral ID Status Reason Start Date Expiration Date Visits Re quested Visits Authorized [id number] Closed 07/18/2023 07/17/2024 1 1 SCRIPT CLERK Reason for Visit * Reason Comments Consult Hx DVT, CHTN, hx PPH , close-interval Ultrasound L2- Hx DVT, CHTN, hx PPH, close-interval * Consultation (Routine: Next available opening) - Pending Review Specialty Diagnoses / Procedures Referred By Contac t Referred To Contact Diagnoses Personal history of DVT (deep vein thrombosis) Dwayne Vieyra MD [address] [place] [address] Referral ID Status Reason Start Date Expiration Date V isits Requested Visits Authorized [id number] Pending Review 06/15/2023 06/14/2024 1 1 Encounter Details Date Type Department Care Team (Late st Contact Info) Description 07/18/2023 11:45 AM TRANSCRIPT CLERK Office Visit [facility] [place] [address] [place] [address] Amado Chester MD [address] [place] [address] Chronic hypertension in (Primary Dx); [...] Comments Blood Pressure 119/82 07/18/2023 12:05 PM TRANSCRIPT CLERK Pulse 78 07/18/2023 12:05 PM TRANSCRIPT CLERK Temperature - - Respiratory Rate 18 07/18/2023 12:05 PM TRANSCRIPT CLERK Oxygen Saturation 99% 07/18/2023 12:05 PM TRANSCRIPT CLERK Inhaled Oxygen Concentration - - Weight 105.5 kg (232 lb 8 oz) 07/18/2023 12:05 P M TRANSCRIPT CLERK Height 180.3 cm (5' 11) 07/18/2023 12:05 PM TRANSCRIPT CLERK Body Mass Index 32.43 07/18/2023 12:05 PM TRANSCRIPT CLERK documented in this encounter Progress Notes * Melissa Amezcua MD - 07/18/2023 11:45 AM CST Images from the original note were not included. Maternal- Medicine Consultation Ron Sears : 1990 Rerferral: Ron Sears is a 32 year old sent by Dr[address] Mg from [facility] for MFM consultation. HPI Ron Sears is [...] this has been with Dr. Mg from [facility]. OB History Para Term AB Living 5 [...] syndrome and inherited thrombophilias. These results might electronic data interchange specialist of a future . Women with a [...] patient. Melissa Amezcua MD Maternal Medicine Fellow [facility] Attending Attestation I have seen and evaluated [...] medical record, and communicating with other health furnace caretaker and/or care coordination.Please see her note for specific details; I have made the necessary edits/additions. The patient was also seen for an ultrasound in the Maternal- Medicine Center at the [facility] today. For a detailed report of the ultrasound examination, please see the ultrasound report which can be found under the imaging tab. Amado Chester MD Maternal Medicine Physician SCRIPT CLERK documented in this encounter Nursing Notes * Julia Azar RN - 07/18/2023 11:45 AM CST Ron was seen in [facility] Clinic today for hx of DVT in , CHTN, and hx PPH. Dr. Chester and Aravind into see patient. US subopt for heart. ECHO ordered and follow up ultrasound ordered in 2 weeks. Please see [facility] consult note for recommendations. Patient was discharged ambulatory and stable. SCRIPT CLERK documented in this encounter Plan of Treatment Not on file documented as of this encounter Results * [facility] US Comprehensive Single F/U (08/02/2023 12:04 PM TRANSCRIPT CLERK) Anatomical Region Laterality Modality Ultrasound 08/02/2023 11:4 0 AM TRANSCRIPT CLERK Impressions 08/02/2023 3:43 PM TRANSCRIPT CLERK IMPRESSION ----- 1. Carrizales intrauterine at 21w 0d gestational age here for completion of anatomy. 2. The remaining anatomic survey was completed, no anomalies commonly detected by ultrasound were identified within the limits of ultrasound. 3. The amniotic fluid volume appeared normal. Narrative 08/02/2023 3:43 PM TRANSCRIPT CLERK ?Comp Follow Up ----- Pat. Name: RON SEARS ? Study Date: ??08/02/2023 11:40am Pat. NO: ??[id number] ?Referring ??: CARMELITA MG Site: ??[facility] ? Cordage Sales Representative: ??Jackie Mccarthy RDMS : ??1990 ?Age: ?? [...] SEARS Study Date: 08/02/2023 11:40am Pat. NO: [id number] Referring MD: CARMELITA MG Site: [facility] Cordage Sales Representative: Jackie Mccarthy RDMS : 1990 Age: 32 [...] fluid volume appeared normal. Amado Chester MD [facility] US ORDERABLE S * ECHO COMPLETE (08/02/2023 12:01 PM TRANSCRIPT CLERK) Anatomical Region Laterality Modality Ultrasound 08/02/2023 10:5 1 AM TRANSCRIPT CLERK Narrative 08/02/2023 11:39 AM TRANSCRIPT CLERK [id number]^HENRIK^AMADO ? Study ID: [id number] ?[facility] ?[facility] ?[address] ?[place] [address] ? Echocardiogram Name: RON SEARS M Study [...] to the left atrium. There is laminar auphk-ie-ydwe shunting across the foramen ovale. Atrioventricular valves: [...] Procedure Note Riana Hampton MBBS - 08/02/2023 [id number]^HENRIK^AMADO Study ID:[id number] [facility]'s [address] [address] Echocardiogram Name: RON SEARS Study Date: 08/02/2023 10:51 AM Patient Location[facility] Gender: Female Patient Class:Outpatient : 1990 Age: [...] in to the left atrium. There is xiczsmtdumlz-xq-hblk shunting across the foramen ovale. Atrioventricular valves: [...] valve anomalies orcoronary artery anomalies. Reading Physician: Riaan Hampton MD 08/02/2023 11:39 AM Amado Chester [...] embolism documented in this encounter Care Teams [employer] Relationship Specialty Start Date End Date No Ref-Primary, Physician PCP - General 06/15/23 documented as of this encounter
--- OUTSIDE RECORDS SUMMARY | 2023-10-17 16:25 | XMS_ITS | Clinical Summary ---
Author Name Unknown Organization [facility] Address [address] [place] [address]. [place] [address] Care Team Providers Care Belt Loop Cutter Name Role Phone No Ref-Primary, Physician Primary Care Provider Amado Chester MD Unavailable [phone] Allergies No known active allergies Medications Medication [...] Department Care Team Description 08/02/2023 2:00 PM THEATER PROJECTIONIST Office Visit [facility] [place] [address], [place] [address] Amado Chester MD Suspected anomaly, antepartum, single or unspecified fetus (Primary Dx); Personal history of DVT (deep vein thrombosis); Chronic hypertension in ; History of deep vein thrombosis (DVT) during 08/02/2023 10:44 AM THEATER PROJECTIONIST - 08/02/2023 11:59 PM THEATER PROJECTIONIST Hospital Encounter [facility] [address] [place] [phone] Amado Chester MD Urmfmusfet History of deep venous thrombosis Discharge Disposition: Home or Self Care 08/02/2023 10:44 AM THEATER PROJECTIONIST - 08/02/2023 11:59 PM THEATER PROJECTIONIST Hospital Encounter [facility] [address] [place] [phone] Amado Chester MD History of deep venous thrombosis Discharge Disposition: Home or Self Care 08/02/2023 Travel 07/26/2023 Travel from Last 3 Months Social History Tobacco [...] Comments Blood Pressure 119/82 07/18/2023 12:05 PM THEATER PROJECTIONIST Pulse 78 07/18/2023 12:05 PM THEATER PROJECTIONIST Temperature - - Respiratory Rate 18 07/18/2023 12:05 PM THEATER PROJECTIONIST Oxygen Saturation 99% 07/18/2023 12:05 PM THEATER PROJECTIONIST Inhaled Oxygen Concentration - - Weight 105.5 kg (232 lb 8 oz) 07/18/2023 12:05 P M THEATER PROJECTIONIST Height 180.3 cm (5' 11) 07/18/2023 12:05 PM THEATER PROJECTIONIST Body Mass Index 32.43 07/18/2023 12:05 PM THEATER PROJECTIONIST Plan of Treatment Health Maintenance Due Date Last Done Comments ADVANCE CARE PLANNING 1990 ANNUAL REVIEW OF HM ORDERS 1990 YEARLY PREVENTIVE VISIT 1992 HIV SCREENING 10/07/2007 HEPATITIS C SCREENING 2010 COVID-19 Vaccine ( season) 2023 MATERNAL SCREENING DISCUSSION 05/17/2023 PHQ-2 (once per calendar year) 2023 OBGCT (OB) 08/23/2023 INFLUENZA VACCINE (Season Ended) 2024 07/27/2018 PAP 03/27/2026 03/27/2023, 03/27/2023 DTAP/TDAP/TD IMMUNIZATION (5 [...] Procedure Name Priority Date/Time Associated Diagnosis Comments [facility] US COMPREHENSIVE SINGLE F/U Routine 08/02/2023 12:04 PM THEATER PROJECTIONIST History of deep venous thrombosis ECHO COMPLETE Routine 08/02/2023 1 2:01 PM THEATER PROJECTIONIST History of deep venous thrombosis HCL PAP SMEAR Routine 11/04/1998 1:18 PM CDT Gynecologic Examination from Last 3 Months or Most Recently Relevant to Health Maintenance Results * [facility] US Comprehensive Single F/U (08/02/2023 12:04 PM THEATER PROJECTIONIST) Anatomical Region Laterality Modality Ultrasound 08/02/2023 11:4 0 AM THEATER PROJECTIONIST Impressions 08/02/2023 3:43 PM THEATER PROJECTIONIST IMPRESSION ----- 1. Carrizales intrauterine at 21w 0d gestational age here for completion of anatomy. 2. The remaining anatomic survey was completed, no anomalies commonly detected by ultrasound were identified within the limits of ultrasound. 3. The amniotic fluid volume appeared normal. Narrative 08/02/2023 3:43 PM THEATER PROJECTIONIST ?Comp Follow Up ----- Pat. Name: RON SEARS ? Study Date: ??08/02/2023 11:40am Pat. NO: ??[id number] ?Referring ??MD: CARMELITA MG Site: ??[facility] ? Foreign Correspondent: ??Jackie Mccarthy RDMS : ??1990 ?Age: ?? [...] SEARS Study Date: 08/02/2023 11:40am Pat. NO: [id number] Referring MD: CARMELITA MG Site: [facility] Foreign Correspondent: Jackie Mccarthy RDMS : 1990 Age: 32 [...] fluid volume appeared normal. Amado Chester MD IMG [facility] US ORDERABLE S * ECHO COMPLETE (08/02/2023 12:01 PM THEATER PROJECTIONIST) Anatomical Region Laterality Modality Ultrasound 08/02/2023 10:5 1 AM THEATER PROJECTIONIST Narrative 08/02/2023 11:39 AM THEATER PROJECTIONIST [id number]^HENRIK^AMADO ? Study ID: [id number] ?[facility] ?[facility] ?[address] ?[place] [address] ? Echocardiogram Name: RON SEARS Study Date: 08/02/2023 10:51 AM ? Patient Location: [facility] Gender: Female ?Patient Class: Outpatient : 1990 [...] to the left atrium. There is laminar ylgvv-sz-otoy shunting across the foramen ovale. Atrioventricular valves: [...] Procedure Note Riana Hampton MBBS - 08/02/2023 [id number]^HENRIK^AMADO Study ID:[id number] [facility] [address] [address] Echocardiogram Name: RON SEARS Study Date: 08/02/2023 10:51 AM Patient Location:[facility] Gender: Female Patient Class:Outpatient : 1990 Age: [...] in to the left atrium. There is jgldquqidqug-dz-kvkn shunting across the foramen ovale. Atrioventricular valves: [...] SMEAR (11/04/1998 1:18 PM CDT) Unlabelled DNR [facility] Biopsy Sent DNR [facility] Source VAG,CERV,E NDOCERV [facility] LMP POST [facility] PARA 3 [facility] 2 [facility] Clinical History DNR [facility] Therapy DNR [facility] Last Pap Diagnosis WITHIN NORMAL LIMITS [facility] PAP Date [id number] [facility] Specimen # [id number] [facility] Tissue DNR [facility] Tissue Date DNR [facility] Statement of Adequacy [facility] Comment: SATISFACTORY FOR INTERPRETATION POST MENOPAUSAL PATIENT. ??NO ENDOCERVICAL CELLS SEEN. General Categorization DNR [facility] Descriptive Diagnosis [facility] Comment: WITHIN NORMAL LIMITS ATROPHIC CELL PATTERN Recommendations DNR [facility] [place] DNR 114,,,,,, [place] DNR DNR [facility] [place] DNR DNR [place] DNR DNR [facility] . [facility] Comment: ?PAP SMEARS ARE SUBJECT TO BOTH FALSE NEGATIVE AND FALSE ? POSITIVE RESULTS EVIDENCED BY DATA PUBLISHED IN THE ? MEDICAL LITERATURE. ??YOUR PATIENT'S RESULT SHOULD BE ? INTERPRETED IN THIS CONTEXT, TOGETHER WITH THE PATIENT'S ? HISTORY AND CLINICAL FINDINGS. TESTING LOCATION ? THIS TEST [facility] PERFOR[facility] AT [facility] ? [address] [facility]. [address] ? PHONE NUMBERS FOR CYTOLOGY INQUIRES, INCLUDING SLIDE REQUESTS ? EXT. [id number] ?? EXT. [id number] 11/02/1998 Dora Gusman MD [facility] [place] from Last 3 Months or Most Recently Relevant to Health Maintenance Care Teams Belt Loop Cutter Relationship Specialty Start Date End Date No Ref-Primary, Physician PCP - General 06/15/23 Amado Chester MD [address] [place] [address] Assigned OBGYN Provider 08/04/23
--- OUTSIDE RECORDS SUMMARY | 2023-10-17 16:25 | XMS_ITS | Encounter Summary ---
Author Name Unknown Organization [place] Address [address] [place] [address] Care Team Providers Care Service Writer Advisor Name Role Phone No Ref-Primary, Physician Primary [...] on filedocumented in this encounter Care Teams Service Writer Advisor Relationship Specialty Start Date End Date No Ref-Primary, Physician PCP - General 06/15/23 documented as of this encounter
--- OUTSIDE RECORDS SUMMARY | 2023-10-17 16:25 | XMS_ITS | Encounter Summary ---
Author Name Unknown Organization [facility] Address [address] [place] [address] Care Team Providers Care Payroll Services Analyst Name Role Phone No Ref-Primary, Physician Primary Care Provider Reason for Referral * Diagnostic Imaging Ultrasound (Routine) - Pending Review Specialty Diagnoses / Procedures Referred By Contac t Referred To Contact Radiology. Diagnoses Personal history of DVT (deep vein thrombosis) Procedures [facility] Comprehensive Dwayne Woo MD [address] [address] Referral ID Status Reason Start Date Expiration Date V isits Requested Visits Authorized [id number] Pending Review 06/15/2023 06/14/2024 1 1 H SUPERVISOR Reason for Visit * Diagnostic Imaging Ultrasound (Routine) - Pending Review Specialty Diagnoses / Procedures Referred By Contac t Referred To Contact Radiology. Diagnoses Personal history of DVT (deep vein thrombosis) Procedures [facility] Dwayne Woo MD [address] [address] Referral ID Status Reason Start Date Expiration Date V isits Requested Visits Authorized [id number] Pending Review 06/15/2023 06/14/2024 1 1 Encounter Details Date Type Department Care Team (Latest Contact Info) Description 07/18/2023 10:42 AM BOOTH SUPERVISOR - 07/18/2023 11:59 PM BOOTH SUPERVISOR Hospital Encounter [facility] Maternal Medicine [facility] [address] [place] [phone] Peg Oleary MD [address] [place] [address] Personal history of DVT (deep vein thrombosis) [...] Procedure Name Priority Date/Time Associated Diagnosis Comments [facility] SINGLE Routine 07/18/2023 12:31 PM BOOTH SUPERVISOR Personal history of DVT (deep vein thrombosis) documented in this encounter Results * [facility] Single (07/18/2023 12:31 PM BOOTH SUPERVISOR) Anatomical Region Laterality Modality Ultrasound 07/18/2023 10:4 9 AM BOOTH SUPERVISOR Impressions 07/18/2023 4:50 PM BOOTH SUPERVISOR IMPRESSION ----- 1. Harman intrauterine at 18w [...] long and closed. Narrative 07/18/2023 4:50 PM BOOTH SUPERVISOR ?Comprehensive ----- Pat. Name: MARTHA RON ? Study Date: ??07/18/2023 10:49am Pat. NO: ??[id number] ?Referring ??MD: CARMELITA MG Site: ??[facility] ? Egg Pasteurizer: Caroline Azar RDMS : ??1990 ?Age: ?? [...] 0 lb 8 ?oz EFW by ?Hadlock ([id number]) Head / Face / Neck Biometry: Ship'S Cook ? 6.1 ? mm CM ?4.4 ? [...] view. Superior vena cava. Inferior vena cava. 8-cmcxet-vvpcnkh view. Cardiac position. Cardiac size. Cardiac ? [...] SEARS Study Date: 07/18/2023 10:49am Pat. NO: [id number] Referring MD: CARMELITA MG Site: [facility] Egg Pasteurizer: Caroline Azar RDMS : 1990 Age: 32 [...] 0 lb 8 oz EFW by Hadlock ([id number]) Head / Face / Neck Biometry: Ship'S Cook 6.1 mm CM 4.4 mm Nasal bone [...] Bicaval view.Superior vena cava. Inferior vena cava. 4-ntbdao-buuxfzk view. Cardiacposition. Cardiac size. Cardiac rhythm. Right [...] appears long and closed. Dwayne Vieyra MD [facility] ORDERABL ES documented in this encounter Visit Diagnoses Diagnosis Personal history of DVT (deep vein thrombosis) Personal history of venous thrombosis and embolism documented in this encounter Care Teams Payroll Services Analyst Relationship Specialty Start Date End Date No Ref-Primary, Physician PCP - General 06/15/23 documented as of this encounter
--- OUTSIDE RECORDS SUMMARY | 2023-10-17 16:25 | XMS_ITS | Encounter Summary ---
Author Name Unknown Organization [facility] Address [address] [place] [address] Care Team Providers Care Debrander Name Role Phone No Ref-Primary, Physician Primary Care Provider Reason for Referral * (Routine) - Closed Specialty Diagnoses / Procedures Referred By Contac t Referred To Contact Cardiology Diagnoses Personal history of DVT (deep vein thrombosis) Chronic hypertension History of deep venous thrombosis Procedures Echo (TTE) Complete Amado Chester MD [address] [address] [facility] [address] [place] [phone] Referral ID Status Reason Start Date Expiration Date Visits Re quested Visits Authorized [id number] Closed 07/18/2023 07/17/2024 1 1 ICAL APPEALS AUDITOR Reason for Visit * (Routine) - Closed Specialty Diagnoses / Procedures Referred By Contac t Referred To Contact Cardiology Diagnoses Personal history of DVT (deep vein thrombosis) Chronic hypertension History of deep venous thrombosis Procedures Echo (TTE) Amado Toscano MD [address] [place] [address] [facility] [address] [place] [phone] Referral ID Status Reason Start Date Expiration Date Visits Re quested Visits Authorized [id number] Closed 07/18/2023 07/17/2024 1 1 Encounter Details Date Type Department Care Team (Latest Contact Info) Description 08/02/2023 10:44 AM CLINICAL APPEALS AUDITOR - 08/02/2023 11:59 PM CLINICAL APPEALS AUDITOR Hospital Encounter [facility] [address] [place] [phone] Amado Chester MD [address] [place] [address] Urmfmusfet History of deep venous thrombosis Discharge [...] Hampton MBBS - 08/02/2023 1:23 PM CST [facility] Cardiology Consult Patient: Ron Sears Date of : 1990 Age: [age] year old Date of Visit: 08/02/2023 PCP: No Ref-Primary, Physician Due Date: Dec 13, 2023 Delivery: Dear Dr. Mg I had the opportunity to meet with Ron today for a Cardiology Consult and Echocardiography at the [facility] on 08/02/2023 Echo demonstrated :Normal cardiac anatomy. [...] timewas face to face. Dr Riana Hampton Stone Polisher Machine [facility] ICAL APPEALS AUDITOR documented in this encounter Plan of Treatment Not on file documented as of this encounter Procedures Procedure Name Priority Date/Time Associated Diagnosis Comments ECHO COMPLETE Routine 08/02/2023 1 2:01 PM CLINICAL APPEALS AUDITOR History of deep venous thrombosis documented in this encounter Results * ECHO COMPLETE (08/02/2023 12:01 PM CLINICAL APPEALS AUDITOR) Anatomical Region Laterality Modality Ultrasound 08/02/2023 10:5 1 AM CLINICAL APPEALS AUDITOR Narrative 08/02/2023 11:39 AM CLINICAL APPEALS AUDITOR [id number]^HENRIK^AMADO ? Study ID: [id number] ?[facility] ?[facility] ?[address] ?[place] [address] ? Echocardiogram Name: RON SEARS Study Date: [...] to the left atrium. There is laminar bchrt-oe-uqau shunting across the foramen ovale. Atrioventricular valves: [...] Procedure Note Riana Hampton MBBS - 08/02/2023 [id number]^SNEHA Study ID:[id number] [facility] [address] [address] Echocardiogram Name: RON SEARS Study Date: 08/02/2023 10:51 AM Patient Location:[facility] Gender: Female Patient Class:Outpatient : 1990 Age: [...] in to the left atrium. There is gcydadjwevqp-xt-dykp shunting across the foramen ovale. Atrioventricular valves: [...] embolism documented in this encounter Care Teams Debrander Relationship Specialty Start Date End Date No Ref-Primary, Physician PCP - General 06/15/23 documented as of this encounter
--- OUTSIDE RECORDS SUMMARY | 2023-10-17 16:25 | XMS_ITS | Encounter Summary ---
Author Name Unknown Organization [facility] Address [address] [place] [address] Care Team Providers Care Tax Collection Coordinator Name Role Phone No Ref-Primary, Physician Primary [...] on filedocumented in this encounter Care Teams Tax Collection Coordinator Relationship Specialty Start Date End Date No Ref-Primary, Physician PCP - General 06/15/23 documented as of this encounter
--- NOTE | 2023-10-17 17:06 | PC.NURSE ---
Addendum entered and electronically signed by Sana Ornelas RN 10/17/23 17:17: Patient took sumatriptan at 1200 today (not 0000 as stated before). Original Note: Patient in for triage, having back pain last night and clare robbins. Headache and vomiting last night- fell asleep on the toilet. Took sumatriptan at 0000- it did not help. Mom reporting headaches, spotty vision, left side finger numbness. No vomiting since last night.
[2023-10-17] MEDS: ACETAMINOPHEN 500 MG TABLET 1000 MG PO (17:29)
[2023-10-17 17:47] LABS: Hematocrit 38.6 % (33.0-51.0); Hemoglobin* 12.5 gm/dL (12.0-16.0); Mean Corpuscular HGB Conc 32 gm/dL (32-36); Mean Corpuscular Hemoglobin 29 pg (26-34); Mean Corpuscular Volume 90 fL (80-100); Platelet Count* 220 K/uL (140-440); Red Blood Count 4.29 m/uL (4.00-5.20); White Blood Count* 9.57 K/uL (4.50-11.00)
[2023-10-17 18:06] LABS: Alanine Aminotransferase* 26 U/L (4-35); Aspartate Amino Transferase* 25 U/L (12-35); Creatinine* 0.5 mg/dL (0.5-1.5); Estimated Glomerular Filt Rate 129 ml/min
[2023-10-17 18:07] LABS: Blood Urea Nitrogen* 6 mg/dL (5-24); Slide Review Reflex No
[2023-10-17 18:07] LABS: Total Protein Urine 10 mg/dL
[2023-10-17 18:09] LABS: Creatinine Urine 171.6 mg/dL
--- NOTE | 2023-10-17 20:03 | W.PM.OBO ---
OB Outpatient HPI History of Present Illness Date Seen: 10/17/23 History of Present Illness: Kalyani is a 33-year-old [id number] woman at 31 weeks, 6 days gestation who [facility] with complaint of severe headache. She a history of migraines with aura, which happen infrequently, perhaps 5 times over the last 2 years. When they occur, she treats with sumatriptan. She has had no migraines thus far this . Last night, she awoke from sleep with terrible pain in her low abdomen. She went on to have cramping and nausea. She did have some vomiting as well. Around mid day today, she started to have her usual visual aura, seeing spots. She decided to take sumatriptan as an abortive measure. However, she still had a headache which was quite severe. Given that she has a history of chronic hypertension, she was concerned about preeclampsia, and presented for evaluation. Since presentation here, she has received 1 g of Tylenol. Headache has improved, but has not resolved. She denies any changes in sensation or strength in any part of her body. Her is otherwise complicated by/notable for: #Closely spaced pregnancies. Vaginal delivery March 31, 2022. #History of chronic hypertension Recommend daily baby aspirin beginning at 12 weeks gestation Baseline preeclampsia labs: P/C ratio: 0.00; Elevated ALT (43) and AST (40). Repeat 06/13/2023: AST 29, ALT mildly elevated at 45. If BP well-controlled without medication:Growth US q4 weeks starting at 28 weeks; Weekly BPP or NST starting at 32 weeks if antihypertensive medication required; Delivery recommended 38-39 6/7 weeks # History of femoral DVT during 1st and chronic clot in...distal left external iliac vein is same location as 01/30/22, endothelialized, no thrombus during second Lovenox 40 mg daily Hold Lovenox 24 hours prior to delivery and can resume 6-12 hours . #History of rapid delivery following induction of labor # History of hemorrhage with blood transfusion. #History of depression. Stable at 1st OB without medications. # Possible congenital heart disease on level 2 US 07/18/23, but repeat US NORMAL and NORMAL ECHO 07/18/23: the three vessel view is abnormal with the aorta appearing larger than the pulmonary artery and abnormal position of the SVC in relation to the other to great vessels displaced posteriorly and rightward... Possibly representing valvular disease of the aorta or variation of normal. echocardiogram with Pediatric Cardiology scheduled for 08/02/2023 Visualized anatomy on level 2 was otherwise normal. Posterior placenta without previa, three-vessel cord, normal fluid, EFW 18%, AC 28%. US 08/02/23: Posterior placenta without previa, MVP 3.9 cm. Remaining an anatomic survey was completed and normal. #GERD. Omeprazole 20 mg started 08/29/23. Meds Home Medications and Allergies Home Medications Medication Instructions Recorded Confirmed Type calcium carbonate (Tums) 200 mg PO BID 06/13/23 10/17/23 History Allergies Allergy/AdvReac Type Severity Reaction Status Date / Time No Known Allergies Allergy Verified 10/10/23 08:29 [facility] Medical History Miscarriage ?O03.9 - Complete or unspecified spontaneous without complication (ICD-10) History of DVT (deep vein thrombosis) ?Z86.718 - Personal history of other venous thrombosis and embolism (ICD-10) History of hemorrhage ?Z87.59 - Personal history of other complications of , childbirth and the puerperium (ICD-10) Depression ?F32.A - Depression, unspecified (ICD-10) Chronic hypertension complicating or reason for care during ?O10.919 - Unspecified pre-existing hypertension complicating , unspecified trimester (ICD-10) Family History Mother Alcohol dependence Drug dependence Sister Alcohol dependence Drug dependence Social History Narrative: Lives in [place] with BF and 1 yo. No smoking, drinking, or ilicit drug use. Smoking Status: Never smoker Non-prescribed substance use: denies use Little interest or pleasure in doing things: not at all Feeling down, depressed, or hopeless: not at all History History 5 Elective abortions Para 2 Spontaneous abortions 2 Hx # Term Pregnancies 2 Ectopic pregnancies Hx # Pregnancies Multiple births Number of Living Children 2 Past Pregnancies Del. Date GA/Weeks Outcome Route wt Inf Gender Labor Lgth Anesthesia Location Provider Compli 01/29/18 11 spontaneous other [facility] [place] 04/09/19 8 spontaneous other [facility] [place] 03/01/21 38 live - full term vaginal delivery 5 lb 13 oz Female 1 hr epidural [facility] chronic hypertension VTE 03/31/22 38 live - full term vaginal delivery 6 lb 4 oz [facility] Delivery Date: 01/29/18 Last Updated by: Brenda Moncada ~ PAGE TECHNICIAN, PAGE TECHNICIAN Medication induced spontaneous Delivery Date: 04/09/19 Last Updated by: Brenda Moncada ~ PAGE TECHNICIAN, PAGE TECHNICIAN Medication induced spontaneous Delivery Date: 03/01/21 Last Updated by: Iris Rapp MD hemorrhage OB - H&P: Exam Physical Exam Vital signs: Pulse BP 76 105/54 L 10/17/23 19:58 10/17/23 19:58 Narrative: Physical exam: General: No acute distress Psych: Alert and oriented x3, full affect HEENT: Normocephalic, atraumatic Heart: Regular rate and rhythm, no murmur rub or gallop Lungs: Clear to auscultation bilaterally Abdomen: Soft, nontender, gravid, cephalic lie tracing: Baseline 140, accelerations to 160, no decelerations, moderate variability Labs Labs Laboratory Tests 10/17/23 10/17/23 Range/Units Unknown 17:33 WBC 9.57 (4.50-11.00) K/uL RBC 4.29 (4.00-5.20) m/uL Hgb 12.5 (12.0-16.0) gm/dL Hct 38.6 (33.0-51.0) % MCV 90 (80-100) fL MCH 29 (26-34) pg MCHC 32 (32-36) gm/dL Plt Count 220 (140-440) K/uL BUN 6 (5-24) mg/dL Creatinine 0.5 (0.5-1.5) mg/dL Estimated GFR 129 ml/min AST 25 (12-35) U/L ALT 26 (4-35) U/L Urine Creatinine 171.6 mg/dL Protein/Creatinin Ratio 0.00 (0-0.19) Urine Total Protein 10 mg/dL Assessment and Plan Assessment and plan (1) : Status: Acute Assessment and Plan: Thirty-one weeks, 6 days gestation. History of chronic hypertension, but normotensive at this time with normal HELLP labs. Her current headache is not a manifestation of severe preeclampsia. (2) Migraine with aura: Status: Acute Assessment and Plan: No response to sumatriptan. Suboptimal response to Tylenol, 1 g. She was given Reglan 10 mg p.o.. She reported the headache had improved after Tylenol, and requested discharge. I recommended she return if symptoms worsen or persist. She is to follow up in clinic in a couple weeks.
[2023-10-17] MEDS: METOCLOPRAMIDE 10 MG TABLET PO (20:27)
--- NOTE | 2023-10-17 20:58 | PC.OBNST ---
NST Note NST Note Start: 10/17/23 16:32 Freq: ONCE Status: Active Protocol: Document 10/17/23 16:32 CITLALLI (Rec: 10/17/23 20:58 KRChristine [id number]) NST Note 5 Para (# of births) 2 EDC 12/13/23 Gestational Age In Weeks & Days 31 Weeks & 6 Days High Risk Factors High Blood Pressure - Preexisting Patient Presented with Complaint(s) of Nausea and vomiting,Headache, Other Other Complaints vision disturbances Reactive Yes Appropriate for Gestational Age Yes RN lungstromelie, RN Date 10/17/23 Reactive Yes Appropriate for Gestational Age Yes RN HReijason, RN Date 10/17/23 OB NST charge Yes Complete NST Note via Write Note Yes The provider's electronic signature indicates the NST is reactive/appropriate for gestational age. *Note to provider: If an addendum is required, open the patient's chart and click on the note under the Nurse/Allied Health tab.
== END 2023-10-17 19:28 | disposition home or self-care (01) ==
LOC: OB OUT 16:23 → OB 16:24
PROVIDERS: PCP Family Medicine; Visit Provider Obstetrics & Gynecology
DX: O10.913 Unspecified pre-existing hypertension complicating pregnancy, third trimester (principal); R11.2 Nausea with vomiting, unspecified; Z3A.31 31 weeks gestation of pregnancy
CPT/HCPCS: 36415; 59025; 82565; 82570; 84156; 84450; 84460; 84520; 85027; G0463; A9270

== ENCOUNTER 2023-10-30 09:14 | Outpatient (CLI) | payer MEDICAID, SELFPAY ==
--- NOTE | 2023-10-30 09:15 | US_ITS ---
Patient: RON THOMAS Facility:?[facility] Patient ID:?[id number] Site Patient ID:?[id number]. Site :?1992 Study:?US-OB Pelvis growth-10/30/2023 9:48:24 AM Ordering Physician:Iris Gonzalez Final Report: INDICATION: Third trimester scan, evaluate growth. Chronic hypertension. COMPARISON: 09/26/2023 TECHNIQUE: Real time breaux scale imaging of the fetus was performed. FINDINGS: Sonographic imaging demonstrates a single living intrauterine gestation. Fetus demonstrates a regular cardiac rate of 139 beats per minute. Fetus has a vertex position. The placenta lies posteriorly. Amniotic fluid volume appears normal and there is a single deepest vertical pocket: 5.6 cm. The estimated weight is 1993gm which lies at the 14th %. On the prior OB ultrasound exam dated 09/26/2023 the estimated weight was at the 12th%. The HC/AC ratio measures 1.06 range (0.96-1.12). BPD 6th percentile HC 16th percentile. AC is 25th percentile. FL is 6th percentile. IMPRESSION: Sonographic gestational age 32 weeks 4 days and sonographic due date of 12/21/2023. Sonographic age 8 days behind the clinical age. Estimated weight 14th percentile. Abdominal circumference 25th percentile. Dictated by Chip Sandoval MD @ 10/30/2023 12:19:31 PM Signed by:?Chip Sandoval MD @10/30/2023 12:19:31 PM (Electronic Signature)
== END 2023-10-30 09:15 | disposition home or self-care (01) ==
LOC: US 09:15
PROVIDERS: PCP Family Medicine; Visit Provider Obstetrics & Gynecology
DX: O10.913 Unspecified pre-existing hypertension complicating pregnancy, third trimester (principal); Z3A.32 32 weeks gestation of pregnancy
CPT/HCPCS: 76816

== ENCOUNTER 2023-11-16 14:16 | Outpatient (CLI) | payer MEDICAID, SELFPAY ==
--- OUTSIDE RECORDS SUMMARY | 2023-11-16 14:22 | XMS_ITS | Clinical Summary ---
Author Organization [facility] Address [address] [place] [address] Care Team Providers Care Store Team Member Name Role Phone No Ref-Primary, Physician Primary Care Provider Peg Oleary MD Unavailable [phone] Allergies No known active allergies Medications Medication [...] Comments Blood Pressure 119/82 07/18/2023 12:05 PM WATER SERVER Pulse 78 07/18/2023 12:05 PM WATER SERVER Temperature - - Respiratory Rate 18 07/18/2023 12:05 PM WATER SERVER Oxygen Saturation 99% 07/18/2023 12:05 PM WATER SERVER Inhaled Oxygen Concentration - - Weight 105.5 kg (232 lb 8 oz) 07/18/2023 12:05 P M WATER SERVER Height 180.3 cm (5' 11) 07/18/2023 12:05 PM WATER SERVER Body Mass Index 32.43 07/18/2023 12:05 PM WATER SERVER Plan of Treatment Health Maintenance Due Date Last Done Comments ADVANCE CARE PLANNING 1990 ANNUAL REVIEW OF HM ORDERS 1992 YEARLY PREVENTIVE VISIT 1992 HIV SCREENING 10/07/2007 HEPATITIS C SCREENING 2010 COVID-19 Vaccine ( season) 2023 MATERNAL SCREENING DISCUSSION 05/17/2023 PHQ-2 (once per calendar year) 2023 OBGCT (OB) 08/23/2023 GROUP B STREP SCREENING 11/15/2023 INFLUENZA VACCINE (Season Ended) 2024 07/27/2018 PAP [...] ( & 60+) (No Doses Required) Completed Care Teams Store Team Member Relationship Specialty Start Date End Date No Ref-Primary, Physician PCP - General 06/15/23 Peg Oleary MD [address] [place] [address] Assigned OBGYN Provider 08/04/23
--- OUTSIDE RECORDS SUMMARY | 2023-11-16 14:22 | XMS_ITS | Referral Summary ---
Author Organization [facility] Address [address] [place] [address] Care Team Providers Care Dry Sand Molder Name Role Phone No Ref-Primary, Physician Primary Care Provider Peg Oleary MD Unavailable [phone] Allergies No known active allergies Medications [...] Comments Blood Pressure 119/82 07/18/2023 12:05 PM MANAGER COMPLIANCE Pulse 78 07/18/2023 12:05 PM MANAGER COMPLIANCE Temperature - - Respiratory Rate 18 07/18/2023 12:05 PM MANAGER COMPLIANCE Oxygen Saturation 99% 07/18/2023 12:05 PM MANAGER COMPLIANCE Inhaled Oxygen Concentration - - Weight 105.5 kg (232 lb 8 oz) 07/18/2023 12:05 P M MANAGER COMPLIANCE Height 180.3 cm (5' 11) 07/18/2023 12:05 PM MANAGER COMPLIANCE Body Mass Index 32.43 07/18/2023 12:05 PM MANAGER COMPLIANCE Plan of Treatment Not on file Care Teams Dry Sand Molder Relationship Specialty Start Date End Date No Ref-Primary, Physician PCP - General 06/15/23 Peg Oleary MD [address] [place], [place] [id number] Assigned OBGYN Provider 08/04/23
--- OUTSIDE RECORDS SUMMARY | 2023-11-16 14:22 | XMS_ITS | Clinical Summary ---
Author Organization [facility] Address [place], [place] [address] Care Team Providers Care Department Store General Manager Name Role Phone Iris Rapp MD Primary Care Provider [phone] Allergies No known active allergies Medications Medication Sig Dispensed Refills Start Date End Date Status acetaminophen 325 mg cap Take 1-2 Tablets by mouth every 4 hours if needed. Active Trinatal Rx 1 60 mg iron-1 mg tablet 02/09/2021 Active enoxaparin (LOVENOX) 40 mg/0.4 mL injection Daily 09/03/2021 Ac tive Active Problems Problem Noted Date Diagnosed Date [facility] Supervision of high-risk Overview: [facility] CONSULTATION ON October 11, 2021 --Virtual Visit [facility] pt was previous [facility] pt in 2020 CONSULT VISIT ALERT: [...] delivery requiring transfusion 2020 ?? Pt saw [place] oncology 03/2021--she will have records faxed over ?? Migraines ?? Hx frequent UTIs ?? Hx depression ?? BMI = 28 LAST GROWTH: 09/04/21 (8w2d) EDC 04/12/22 REFERRING PHYSICIAN/PHONE/LAST UPDATE: Dr. Lizzeth Stovall, [place] [phone] Primary MD approves scheduling of recommended ultrasounds/testing: [...] , antepartum, third trimester 01/29/2021 0 02/28/2021 [facility] Supervision of high risk 01/28/2021 2021 Overview: [facility] CONSULTATION ON 01/28/21 --LUIS to [facility] on 02/01/21 (34w1d) NEXT VISIT ALERTS: [...] delivery: 02/28/21 Induction - Preferred delivery location: [place] Patient is on Therapeutic Lovenox. Refer to [facility] Anticoagulation Doc Flow Sheet every visit Routine Labs: Platelet count: 02/01/21 378,000 Monthly: Due done 02/01/21-03/04/21 Lovenox Levels (for therapeutic dosing only): Due ~ 02/01/21=1.09 (No more lovenox levels during per Dr. Ureña unless dosing changes. ) Next draw: PRIMARY DIAGNOSIS: 30 y.o. Estimated Date of Delivery: 03/14/21 Large occlusive DVT, left femoral vein, dx at [place] [facility] (01/21/21) - 01/22/21 admitted to [facility] for evaluation and management of worsening pain with a known left femoral DVT - 01/23/21 left AMA prior to evaluation by telephone switchboard operator DEVIKAN --checking home BP Has been evaluated a few times for PIH BMI = 30.5 LAST GROWTH: 02/11/21 L2 35w4d EFW 2369 grams, percentile: 20% 10/23/20 anatomy screen, EIF REFERRING PHYSICIAN/PHONE/LAST UPDATE: Janie Pepe MD, [place], Primary MD approves scheduling of recommended ultrasounds/testing: Yes SPECIALISTS/CONSULTS: Include: Specialty MD Clinic Name Phone# [facility] [place] and ADDED TO PATIENT CARE TEAM Yes CARE COORDINATION: GENETICS: Low risk NIPS PROCEDURES: PERTINENT MEDS: lovenox 100 mg BID Oxycodone Tylenol, PNV ORTIZ signed for [facility]: MATERNAL CARE COORDINATION: CARE COORDINATION: DESIZING MACHINE OFFBEARER: ROUTINE OB: COVID-19 vaccine: Date(s) given: declined [...] days of scheduled delivery @ a main [facility] site H&P needed 30 days before delivery Date: PPTL: Yes No Is Medical assistance? Yes PPTL Permit signed: Date: Scanned date: CHECKLIST FOR SCHEDULING PROCEDURES: Call [phone] for [place] and [phone] for [employer] Procedure: Induction Hospital: [place] Unit: L&D Date & Time of procedure: 02/28/21 730 PM Feliciano Score if induction: Pertinent information: DVT left leg, therapeutic lovenox Gestational age on procedure date? 40 MD doing procedure: [facility] LB Date scheduled: 02/19/2021 when patient was 36w5d. Scheduling MD & RN: KASSANDRA/JENNIFER Notifications: Hospitalist Delivery-OBH electronic parts designer notified through Lenda inbox? Yes [facility] MD electronic parts designer notified via Lenda inbox? Yes Primary MD notified via Lenda inbox? Yes Primary MD clinic called if not [facility]? Not Applicable On [facility] calendar? Yes Care Coordination notified? Yes H&P/PPTL: PPTL permit signed? No H&P and Plan in chart? Yes [facility] appointment made for H&P with DATA WAREHOUSING MANAGER within 30 days of procedure? Yes 02/01/21 Date: Regardless of vaccination status, all procedures require a COVID-19 test . Patients should be scheduled for a COVID-19 test within 3-5 days prior to the scheduled procedure to be done in main [facility] Clinic 02/26/21Date: * Patient notification: Patient notified of procedure date? Yes Written admission instructions given to patient via AVS? No PLAN OF CARE: per consult note on 01/29/21: care: ?? LUIS recommended:Yes ??Recommendations for Delivery: ?? Hospital Location:??[facility] Mother Baby [place] ?? Timin wks gestation ?? Mode:IOL at 38 wks weeks - scheduled No ?? Provider: [facility] ?? Special considerations ? Discontinue Lovenox 24 hours prior to IOL or at the onset of contractions DVT complicating , third trimester 01/22/2021 02/28/2021 related leg pain i n third trimester, antepartum 01/22/2021 02/28/2021 Overview: transfer from [place] 32w 5d gestation of 01/22/2021 01/29/2021 Anxiety [...] bor (< 3 hours) Delivery Location:Hospital ( [facility] [address] L[address] TRIAGE) Comments:DVT at 32 [...] 16 Negative Negative 03/31/2023 5:32 AM CDT [facility] TRAL LABORATORY TYPE 18 Negative Negative 03/31/2023 5:32 AM CDT [facility] TRAL LABORATORY OTHER HIGH RISK TYPES Negative Negative 03/31/2023 5:32 AM CDT [facility] TRAL LABORATORY Other (Cervical) 03/27/2023 4:20 PM CDT 03/29/2023 2:49 PM CDT Narrative [facility]-CENTRAL LAB[facility]ORY - 03/31/2023 5:32 AM CDT HPV types 16, 18, 31, 33, 35, 39, 45, 51, 52, 56, 58, 59, 66 and 68 DNA were undetectable or below the pre-set threshold. Methodology: Bacilio Yvonne 4800 HPV Test Celena Mccabe MD MICROBIOLOGY [facility] LABORATORY-CENTRAL LABORATORY [address] [place] [address], * HIV EXTERNAL (08/14/2020) EXTERNAL HIV Negative [facility] Blood BLOOD SPECIMEN / Unknown September [facility] [address] [address] from Last 3 Months or Most Recently [...] Comments Code Status Discussion: Discussed Care Teams Department Store General Manager Relationship Specialty Start Date End Date Iris Rapp MD [address] [place] [address] PCP - General Obstetrics and Gynecology 01/28/21
[2023-11-17 13:36] LABS: Strep B DNA Probe Negative (Negative)
[2023-11-17 13:43] LABS: Strep B Susceptibility Needed? No
== END 2023-11-16 14:17 | disposition home or self-care (01) ==
PROVIDERS: PCP Family Medicine; Visit Provider Physician Assistant
DX: Z34.93 Encounter for supervision of normal pregnancy, unspecified, third trimester (principal); Z3A.36 36 weeks gestation of pregnancy
CPT/HCPCS: 87081; 87653

== ENCOUNTER 2023-11-28 16:42 | Inpatient (IN) | payer MEDICAID, SELFPAY ==
[2023-11-28] VITALS (9 sets, daily range): BP systolic 110–141; BP diastolic 56–75; PULSE 65–88; RESP 16–20; TEMP 36.5–36.8; O2SAT 96–98; BMI 33.6
--- OUTSIDE RECORDS SUMMARY | 2023-11-28 16:44 | XMS_ITS | Clinical Summary ---
Author Organization [facility] Address [place], [place] [address] Care Team Providers Care Auto Machinist Name Role Phone Iris Rapp MD Primary Care Provider [phone] Allergies No known active allergies Medications Medication Sig Dispensed Refills Start Date End Date Status acetaminophen 325 mg cap Take 1-2 Tablets by mouth every 4 hours if needed. Active Trinatal Rx 1 60 mg iron-1 mg tablet 02/09/2021 Active enoxaparin (LOVENOX) 40 mg/0.4 mL injection Daily 09/03/2021 Ac tive Active Problems Problem Noted Date Diagnosed Date [facility] Supervision of high-risk Overview: [facility] CONSULTATION ON October 11, 2021 --Virtual Visit [facility] pt was previous [facility] pt in 2020 CONSULT VISIT ALERT: Create [...] delivery requiring transfusion 2020 ?? Pt saw [place]ology 03/2021--she will have records faxed over ?? Migraines ?? Hx frequent UTIs ?? Hx depression ?? BMI = 28 LAST GROWTH: 09/04/21 (8w2d) EDC 04/12/22 REFERRING PHYSICIAN/PHONE/LAST UPDATE: Dr. Lizzeth Stovall, [place] [phone] Primary MD approves scheduling of recommended ultrasounds/testing: [...] , antepartum, third trimester 01/29/2021 0 02/28/2021 [facility] Supervision of high risk 01/28/2021 2021 Overview: [facility] CONSULTATION ON 01/28/21 --LUIS to [facility] on 02/01/21 (34w1d) NEXT VISIT ALERTS: ?? [...] delivery: 02/28/21 Induction - Preferred delivery location: [place] Patient is on Therapeutic Lovenox. Refer to [facility] Anticoagulation Doc Flow Sheet every visit Routine Labs: Platelet count: 02/01/21 378,000 Monthly: Due done 02/01/21-03/04/21 Lovenox Levels (for therapeutic dosing only): Due ~ 02/01/21=1.09 (No more lovenox levels during per Dr. Ureña unless dosing changes. ) Next draw: PRIMARY DIAGNOSIS: 30 y.o. Estimated Date of Delivery: 03/14/21 Large occlusive DVT, left femoral vein, dx at [place] [facility] (01/21/21) - 01/22/21 admitted to [facility] for evaluation and management of worsening pain with a known left femoral DVT - 01/23/21 left AMA prior to evaluation by substitute bus driver DEVIKAN --checking home BP Has been evaluated a few times for PIH BMI = 30.5 LAST GROWTH: 02/11/21 L2 35w4d EFW 2369 grams, percentile: 20% 10/23/20 anatomy screen, EIF REFERRING PHYSICIAN/PHONE/LAST UPDATE: Janie Pepe MD, [place], Primary MD approves scheduling of recommended ultrasounds/testing: Yes SPECIALISTS/CONSULTS: Include: Specialty MD Clinic Name Phone# [facility] [place] and ADDED TO PATIENT CARE TEAM Yes CARE COORDINATION: GENETICS: Low risk NIPS PROCEDURES: PERTINENT MEDS: lovenox 100 mg BID Oxycodone Tylenol, PNV ORTIZ signed for [facility]: MATERNAL CARE COORDINATION: CARE COORDINATION: PUBLIC DEFENDER: ROUTINE OB: COVID-19 vaccine: Date(s) given: declined [...] days of scheduled delivery @ a main [facility] site H&P needed 30 days before delivery Date: PPTL: Yes No Is Medical assistance? Yes PPTL Permit signed: Date: Scanned date: CHECKLIST FOR SCHEDULING PROCEDURES: Call [phone] for [place] and [phone] for [employer] Procedure: Induction Hospital: [place] Unit: L&D Date & Time of procedure: 02/28/21 730 PM Feliciano Score if induction: Pertinent information: DVT left leg, therapeutic lovenox Gestational age on procedure date? 40 MD doing procedure: [facility] LB Date scheduled: 02/19/2021 when patient was 36w5d. Scheduling MD & RN: KASSANDRA/JENNIFER Notifications: Hospitalist Delivery-[facility] regional sales engineer notified through BookingBug inbox? Yes [facility] MD regional sales engineer notified via BookingBug inbox? Yes Primary MD notified via BookingBug inbox? Yes Primary MD clinic called if not [facility]? Not Applicable On [facility] calendar? Yes Care Coordination notified? Yes H&P/PPTL: PPTL permit signed? No H&P and Plan in chart? Yes [facility] appointment made for H&P with FACILITIES MAINTENANCE ASSISTANT within 30 days of procedure? Yes 02/01/21 Date: Regardless of vaccination status, all procedures require a COVID-19 test . Patients should be scheduled for a COVID-19 test within 3-5 days prior to the scheduled procedure to be done in main [facility] Clinic 02/26/21Date: * Patient notification: Patient notified of procedure date? Yes Written admission instructions given to patient via AVS? No PLAN OF CARE: per consult note on 01/29/21: care: ?? LUIS recommended:Yes ??Recommendations for Delivery: ?? Hospital Location:??[facility] Mother Baby [place] ?? Timin wks gestation ?? Mode:IOL at 38 wks weeks - scheduled No ?? Provider: [facility] ?? Special considerations ? Discontinue Lovenox 24 hours prior to IOL or at the onset of contractions DVT complicating , third trimester 01/22/2021 02/28/2021 related leg pain i n third trimester, antepartum 01/22/2021 02/28/2021 Overview: transfer from [place] 32w 5d gestation of 01/22/2021 01/29/2021 Anxiety [...] Outcome [place] Total Labor Labor/2nd/3rd Weight Sex Type Anes PTL Jaimee A1 A5 Name Clin 2017 SAB 9w0 d 2018 SAB 11w 0d 2020 Term 38w 1d 2h 52m 2h 34m/0h 15m/0h 03m 2.64 kg (5 lb 13 oz) F VAGINA L LUCIAN Epidur al Livin g 8 9 HARDE R,BG PRINCE KYLEE Reyes n, Neena Sanchez DO Complications:Precipitous la bor (< 3 hours) Delivery Location:Hospital ( [facility] [address] TRIAGE) Comments:DVT at 32 [...] 16 Negative Negative 03/31/2023 5:32 AM CDT [facility] TRAL LABORATORY TYPE 18 Negative Negative 03/31/2023 5:32 AM CDT [facility] TRAL LABORATORY OTHER HIGH RISK TYPES Negative Negative 03/31/2023 5:32 AM CDT [facility] TRAL LABORATORY Other (Cervical) 03/27/2023 4:20 PM CDT 03/29/2023 2:49 PM CDT Narrative [facility] - 03/31/2023 5:32 AM CDT HPV types 16, 18, 31, 33, 35, 39, 45, 51, 52, 56, 58, 59, 66 and 68 DNA were undetectable or below the pre-set threshold. Methodology: Bacilio Yvnone 4800 HPV Test Celena Mccabe MD MICROBIOLOGY [facility] LABORATORY-CENTRAL LABORATORY [address] [place] [address], * HIV EXTERNAL (08/14/2020) EXTERNAL HIV Negative [facility] Blood BLOOD SPECIMEN / Unknown September [facility] [address] [address] from Last 3 Months or Most Recently [...] Comments Code Status Discussion: Discussed Care Teams Auto Machinist Relationship Specialty Start Date End Date Iris Rapp MD [address] [place] [address] PCP - General Obstetrics and Gynecology 01/28/21
--- OUTSIDE RECORDS SUMMARY | 2023-11-28 16:44 | XMS_ITS | Referral Summary ---
Author Organization [facility] Address [address] [place] [address] Care Team Providers Care Motel Maid Name Role Phone No Ref-Primary, Physician Primary Care Provider Peg Oleary MD Unavailable [phone] Allergies No known active allergies Medications [...] Comments Blood Pressure 119/82 07/18/2023 12:05 PM PIZZA HUT TEAM MEMBER Pulse 78 07/18/2023 12:05 PM PIZZA HUT TEAM MEMBER Temperature - - Respiratory Rate 18 07/18/2023 12:05 PM PIZZA HUT TEAM MEMBER Oxygen Saturation 99% 07/18/2023 12:05 PM PIZZA HUT TEAM MEMBER Inhaled Oxygen Concentration - - Weight 105.5 kg (232 lb 8 oz) 07/18/2023 12:05 P M PIZZA HUT TEAM MEMBER Height 180.3 cm (5' 11) 07/18/2023 12:05 PM PIZZA HUT TEAM MEMBER Body Mass Index 32.43 07/18/2023 12:05 PM PIZZA HUT TEAM MEMBER Plan of Treatment Not on file Care Teams Motel Maid Relationship Specialty Start Date End Date No Ref-Primary, Physician PCP - General 06/15/23 Peg Oleary MD [address] [place], [place] [address] Assigned OBGYN Provider 08/04/23
--- OUTSIDE RECORDS SUMMARY | 2023-11-28 16:44 | XMS_ITS | Clinical Summary ---
Author Organization [facility] Address [address] [place] [address] Care Team Providers Care Light Truck Driver Name Role Phone No Ref-Primary, Physician Primary Care Provider Peg Oleary MD Unavailable [phone] Allergies No known active allergies Medications [...] Comments Blood Pressure 119/82 07/18/2023 12:05 PM PLANNING ENGINEER Pulse 78 07/18/2023 12:05 PM PLANNING ENGINEER Temperature - - Respiratory Rate 18 07/18/2023 12:05 PM PLANNING ENGINEER Oxygen Saturation 99% 07/18/2023 12:05 PM PLANNING ENGINEER Inhaled Oxygen Concentration - - Weight 105.5 kg (232 lb 8 oz) 07/18/2023 12:05 P M PLANNING ENGINEER Height 180.3 cm (5' 11) 07/18/2023 12:05 PM PLANNING ENGINEER Body Mass Index 32.43 07/18/2023 12:05 PM PLANNING ENGINEER Plan of Treatment Health Maintenance Due Date [...] 60+) (No Doses Required) Completed Care Teams Light Truck Driver Relationship Specialty Start Date End Date No Ref-Primary, Physician PCP - General 06/15/23 Peg Oleary MD [address] [place] [address] Assigned OBGYN Provider 08/04/23
--- NOTE | 2023-11-28 17:44 | W.PM.LDBA ---
Subjective History of Present Illness Date Seen: 11/28/23 Narrative: Patient is being admitted to Labor and Delivery for IOL. She is a 33 year old at 37 6/7 weeks gestation. Her full history and physical was dictated by Dr. Rapp on 11/21/23. Please see this for details. Her last Lovenox dose was last night 11/27/23 at 9pm. Specific Issues/Plans G 5 P 2021 #Closely spaced pregnancies. Vaginal delivery March 31, 2022. #History of chronic hypertension Recommend daily baby aspirin beginning at 12 weeks gestation Baseline preeclampsia labs: P/C ratio: 0.00; Elevated ALT (43) and AST (40). Repeat 06/13/2023: AST 29, ALT mildly elevated at 45. Repeat normal AST/ALT 10/17/23: AST 25, ALT 25 EKG done, NSR If BP well-controlled without medication:Growth US q4 weeks starting at 28 weeks; Weekly BPP or NST starting at 32 weeks if antihypertensive medication required; Delivery recommended 38-39 6/7 weeks # History of femoral DVT during 1st and chronic clot in...distal left external iliac vein is same location as 01/30/22, endothelialized, no thrombus during second Testing to determine cause with hematology: negative Lovenox 40 mg daily Hold Lovenox 24 hours prior to delivery and can resume 6-12 hours , 12-24 hours after Hold Lovenox until 4+ hours after removal of epidural catheter and 12+ hours after placement of regional anesthesia Continue Lovenox through 6 weeks #History of rapid delivery following induction of labor # History of delayed hemorrhage with blood transfusion 2 weeks . #History of depression. Stable at 1st OB without medications. # Possible congenital heart disease on level 2 US 07/18/23, but repeat US NORMAL and NORMAL ECHO 07/18/23: the three vessel view is abnormal with the aorta appearing larger than the pulmonary artery and abnormal position of the SVC in relation to the other to great vessels displaced posteriorly and rightward... Possibly representing valvular disease of the aorta or variation of normal. echocardiogram with Pediatric Cardiology scheduled for 08/02/2023 Visualized anatomy on level 2 was otherwise normal. Posterior placenta without previa, three-vessel cord, normal fluid, EFW 18%, AC 28%. US 08/02/23: Posterior placenta without previa, MVP 3.9 cm. Remaining an anatomic survey was completed and normal. #GERD. Omeprazole 20 mg started 08/29/23. # Desires tubal ligation if needed, otherwise LARC Tubal consent form signed 10/30/23 Ultrasounds: 07/18: as above 08/02: as above 09/25 = 28 weeks: Breech. EFW 11.8%, AC 11.7%, BPD 4.9%, HC 7.9%, FL 24.1%. SDP 4.4 cm. 10/29 = 34 weeks: Cephalic, SDP 5.6, EFW 13%, BPD 6%, HC 15%, AC 24%, FL 6%. Flu: Declines at 1st OB. Will consider at a later time. Covid: Declines. Recommended. OB - Problem Based A/P Additional Plan (1) : Status: Acute (2) Chronic hypertension affecting : Status: Acute (3) History of DVT (deep vein thrombosis): Problem details: in Status: Acute Plan IOL due to CHTN, chronic anticoagulation. Last Lovenox dose yesterday at 9 pm. Blood pressures at home well controlled w/o medication. No FLOOR COVERING CONTRACTOR irritability symptoms. Preeclampsia labs upon admission collected, coagulation parameters as well. Cervix will need cervical ripening, NST reactive. Uterine irritability and patient does not feel contractions as painful. Patient declines cook catheter. Has had good experiences in the past with Cervidil and Cytotec. I will proceed with Cytotec 25mcg vaginally and will evaluate if able to place again in 3-4 hours. Patient states that she has gone into labor very quickly when IOL are started. GBS negative no need for IV antibiotics. Pain management as needed. OB Exam Physical Exam Vital signs: Temp Pulse Resp BP Pulse Ox 98.2 F 77 20 128/70 98 11/28/23 17:37 11/28/23 17:37 11/28/23 17:37 11/28/23 17:37 11/28/23 17:38 Detailed Labor and Delivery Exam Patient Gravid: Yes Dilation (cm): 1 Effacement (%): 50 Cervix position: posterior Consistency: medium Tachysystole: No Contraction intensity: Mild Fetus (Single) Station: -3 Amniotic Membrane Status: intact Heart Rate Baseline: 135 Monitor Accelerations: Present Monitor Decelerations: None Project Manager Process Development Variability: Moderate (6-25)
[2023-11-28] MEDS: miSOPROStoL 25 MCG/0.25 TABLET VAGINAL ×2 (18:11→22:18)
[2023-11-28 18:13] LABS: Alanine Aminotransferase* 32 U/L (4-35); Aspartate Amino Transferase* 28 U/L (12-35); Blood Urea Nitrogen* 7 mg/dL (5-24); Creatinine* 0.5 mg/dL (0.5-1.5); Estimated Glomerular Filt Rate 129 ml/min
[2023-11-28 18:46] LABS: INR 0.89 (0.91-1.10); Prothrombin Time 12.6 Seconds
[2023-11-28 18:47] LABS: Fibrinogen* 412 mg/dL (200-450)
[2023-11-28 19:52] LABS: Partial Thromboplastin Time* 27 Seconds (23-33)
[2023-11-28 20:54] LABS: Protein Creatinine Ratio Urine 0.17 (0-0.19); Total Protein Urine 11 mg/dL
[2023-11-28 21:18] LABS: Basophils Absolute Auto 0.02 K/uL (0.00-0.30); Basophils Percent Auto 0.2 % (0.0-3.0); Eosinophils Absolute Auto 0.04 K/uL (0.00-0.50); Eosinophils Percent Auto 0.4 % (0.0-7.0); Hematocrit 36.6 % (33.0-51.0); Hemoglobin* 12.1 gm/dL (12.0-16.0); Immature Granulocytes Abs Auto 0.08 K/uL (0.00-0.30); Immature Granulocytes Pct Auto 0.8 %; Lymphocytes Absolute Auto 2.17 K/uL (0.90-2.90); Lymphocytes Percent Auto 21.5 % (20-44); Mean Corpuscular HGB Conc 33 gm/dL (32-36); Mean Corpuscular Hemoglobin 30 pg (26-34); Mean Corpuscular Volume 90 fL (80-100); Monocytes Percent Auto 7.9 % (0.0-11.0); Neutrophils Absolute Auto 6.99 K/uL (1.7-7.0); Neutrophils Percent Auto 69.2 % (42.0-72.0); Platelet Count* 196 K/uL (140-440); RDW Coefficient of Variation % 12.4 % (11.5-15.5); Red Blood Count 4.09 m/uL (4.00-5.20)
[2023-11-28 21:26] LABS: Slide Review Reflex No
[2023-11-29] VITALS (46 sets, daily range): BP systolic 98–135; BP diastolic 51–82; PULSE 55–245; RESP 16–18; TEMP 36.4–37.1; O2SAT 71–100
[2023-11-29] MEDS: miSOPROStoL 25 MCG/0.25 TABLET VAGINAL ×2 (02:23→06:21)
--- NOTE | 2023-11-29 08:25 | P.OBPN_ITS ---
Subjective Date Seen: 11/29/23 Narrative: Debbi is a 33-year-old V0M3-6-9-7 woman at 38 weeks, 0 days gestation here for induction of labor in the setting of chronic hypertension complicating in the setting of history of femoral DVT 01/30/2022. She was maintained on Lovenox until 9:00 p.m. on 11/27/2023. She also has a history of rapid delivery and delayed hemorrhage at 2 weeks . She has received Cytotec for cervical ripening overnight. She is due for her next dose at 1020 AM. Objective Vital Signs: Last Vital Signs Temp 98.1 F 11/29/23 07:31 Pulse 55 L 11/29/23 07:31 Resp 16 11/29/23 06:15 BP 135/74 11/29/23 07:31 Pulse Ox 100 11/29/23 07:31 She has been normotensive throughout her induction. Pelvic Exam Dilation (cm): 3 Effacement (%): 80 Station: -3 Contractions Monitor mode: External Contraction Frequency: Q1-2 Contraction pattern: Irregular Contraction intensity: Mild Assessment Station: -3 Amniotic Membrane Status: SROM (0850 AM) Status: Category l Heart Rate Baseline: 140 Care Home Variability: Moderate (6-25) Monitor Accelerations: Absent Monitor Decelerations: None Tracing Comments: No recent accelerations, but normal baseline and moderate variability. Category 1, reassuring. Labor Progress: Now with favorable cervix. SROM on exam with clear fluid noted. Maternal Status: Currently without high blood pressures. Plan Plan: Begin Pitocin augmentation as soon as protocol allows after misoprostol dosing. Continuous monitoring. I recommended ambulation.
[2023-11-29] MEDS: LACTATED RINGERS 1000 ML 1,000 ML IV (09:34)
[2023-11-29] MEDS: LACTATED RINGERS 1000 ML 1,000 ML 1200 ML IV (10:35)
[2023-11-29] MEDS: ROPIVACAINE 0.2% 100 ml 100 ML 12 MG EPIDURAL (10:36)
[2023-11-29] MEDS: BUPIVACAINE 0.25% PF 10 ML 10 ML ML EPIDURAL (10:36)
--- NOTE | 2023-11-29 10:45 | P.ANBPRC_ITS ---
[facility] Medical History (Updated 11/21/23 @ 14:37 by Iris Rapp MD) Migraine with aura ?G43.109 - Migraine with aura, not intractable, without status migrainosus (ICD-10) History of hemorrhage ?Z87.59 - Personal history of other complications of , childbirth and the puerperium (ICD-10) Anxiety ?F41.9 - Anxiety disorder, unspecified (ICD-10) Miscarriage ?O03.9 - Complete or unspecified spontaneous without complication (ICD-10) History of DVT (deep vein thrombosis) ?Z86.718 - Personal history of other venous thrombosis and embolism (ICD-10) Depression ?F32.A - Depression, unspecified (ICD-10) Chronic hypertension complicating or reason for care during ?O10.919 - Unspecified pre-existing hypertension complicating , unspecified trimester (ICD-10) Family History (Updated 11/21/23 @ 14:38 by Iris Rapp MD) Mother Alcohol dependence Drug dependence Sister Alcohol dependence Drug dependence Aunt Lung cancer Maternal Grandmother NHL (non-Hodgkin's lymphoma) Social History (Updated 11/21/23 @ 14:39 by Iris Rapp MD) Narrative: Lives in [place] with BF and 2 kids, ages 1 and 2. No smoking, drinking, or ilicit drug use. What is your current living situation?: I presently have a place to live Problems where you live: no known problems In the past 12 months, utilities in danger of being shut off: no In past 12 months, lack of transportation kept you from medical appts, meetings, work, or getting things needed for daily living: no In the past 12 mos, have been you worried that your food would run out before you had money to buy more?: never true In the past 12 mos, the food you bought just didn't last and you didn't have money to buy more?: never true Smoking Status: Never smoker Non-prescribed substance use: denies use How often does anyone, including family, friends and others, physically hurt you : never How often does anyone, including family, friends and others, insult or talk down to you: never How often does anyone, including family, friends and others, threaten you with harm: never How often does anyone, including family, friends and others, scream or curse at you: never Little interest or pleasure in doing things: not at all Feeling down, depressed, or hopeless: not at all Meds Home Medications and Allergies Home Medications ?Medication ?Instructions ?Recorded ?Confirmed ?Type calcium carbonate (Tums) 200 mg PO BID 06/13/23 11/28/23 History omeprazole 20 mg capsule,delayed 20 mg PO DAILY 11/28/23 11/28/23 History release Allergies Allergy/AdvReac Type Severity Reaction Status Date / Time No Known Allergies Allergy Verified 11/28/23 18:20 Results Labs Labs: Laboratory Results - last 24 hr 11/28/23 11/28/23 11/28/23 17:35 17:56 17:59 WBC 10.10 RBC 4.09 Hgb 12.1 Hct 36.6 MCV 90 MCH 30 MCHC 33 RDW Coeff of Travis 12.4 Plt Count 196 Neut % (Auto) 69.2 Lymph % (Auto) 21.5 [place] % (Auto) 7.9 Eos % (Auto) 0.4 Baso % (Auto) 0.2 Neut # (Auto) 6.99 Lymph # (Auto) 2.17 [place] # (Auto) 0.80 Eos # (Auto) 0.04 Baso # (Auto) 0.02 Abs Immat Gran (auto) 0.08 Imm/Tot Granulo (auto) 0.8 INR 0.89 L APTT 27 Fibrinogen 412 BUN 7 Creatinine 0.5 Estimated GFR 129 AST 28 ALT 32 Urine Creatinine Protein/Creatinin Ratio Urine Total Protein Blood Type B Positive Antibody Screen NEGATIVE 11/28/23 19:59 WBC RBC Hgb Hct MCV MCH MCHC RDW Coeff of Travis Plt Count Neut % (Auto) Lymph % (Auto) [place] % (Auto) Eos % (Auto) Baso % (Auto) Neut # (Auto) Lymph # (Auto) [place] # (Auto) Eos # (Auto) Baso # (Auto) Abs Immat Gran (auto) Imm/Tot Granulo (auto) INR APTT Fibrinogen BUN Creatinine Estimated GFR AST ALT Urine Creatinine 65.0 Protein/Creatinin Ratio 0.17 Urine Total Protein 11 Blood Type Antibody Screen Vital Signs Vital Signs: Last Vital Signs Temp 97.5 F L 11/29/23 09:03 Pulse 71 11/29/23 10:43 Resp 16 11/29/23 06:15 BP 132/63 11/29/23 10:45 Pulse Ox 99 11/29/23 10:40 Weight: 112.446 kg Height: 182.88 cm Anesthesia Procedures Epidural Insertion Patient Location: OB Start Time: 10:15 Stop Time: 10:45 Start Date: 11/29/23 Stop Date: 11/29/23 Reason for Block: procedure for pain Patient Position: sitting Performed By: Mickey Rodrigues Preanesthetic Checklist: IV checked, risks and benefits discussed, monitors and equipment checked, pre-op evaluation, timeout performed and anesthesia consent Prep: chlorhexidine gluconate Monitoring: blood pressure monitoring, continuous pulse oximetry and heart rate Approach: midline Vertebral Space: lumbar (1-5) Epidural Technique: DOMENIC saline Needle Type: Tuohy needle Injection Technique: continuous catheter Needle gauge: 17 Needle Length (cm): 10 cm Needle Insertion Depth (cm): 8 Catheter Gauge: 19 Catheter Type: multi-orifice Catheter at skin depth (cm): 14 Test Dose Result: negative and lidocaine 1.5% with epinephrine 1 to 200,000
[2023-11-29] MEDS: fentaNYL 100 MCG/2 ML inj EPIDURAL (10:55)
[2023-11-29] MEDS: OXYTOCIN 30 unit/500 ML in NS 30 UNIT/500 ML BAG 300 UNIT IVPB ×2 (11:06→14:03)
[2023-11-29] MEDS: IBUPROFEN 600 MG TABLET PO ×2 (12:58→22:58)
[2023-11-29] MEDS: SODIUM CHLORIDE 0.9 % (FLUSH) 10 ML SYRINGE IVF (13:00)
--- NOTE | 2023-11-29 18:09 | W.PM.VAGD1_ITS ---
Procedure Procedure Done: [facility] Procedure Details: The patient is a 33 year-old G 5 P 2-0-2-2 woman admitted on 11/28/2023 at 37 Weeks, 6 Days gestation for cervical ripening followed by induction of labor for indication of chronic hypertension complicating .? Cervical exam on admission was 1 cm/50 % effaced/-3 station with membranes intact in vertex presentation.? heart rate demonstrated baseline 130 bpm with moderate variability, positive accelerations, no decelerations; a category 1 tracing.? SROM occurred on 11/29/2023 at 8:49 a.m. with clear fluid. ? Labor Analgesia:? Epidural ? Pitocin:? Yes ? Labor onset:? 9:20 a.m. on 11/29/2023 ? Complete:? 11:00 a.m. ? Pushing:? 11:02 a.m. ? heart tones during second stage were reassuring. ? At 11:06 a.m. a viable female infant delivered in vertex OA presentation over intact perineum via spontaneous vaginal delivery.? There was a tight nuchal cord which was clamped and cut prior to delivery of the 's shoulders. Infant was placed on maternal abdomen.? Cord was subsequently trimmed to an appropriate length.? Nose and mouth were bulb suctioned.? Infant weight pending.? 8 at 1 minute and 9 at 5 minutes.? Shoulder dystocia: No.? ? Placenta delivered spontaneously and complete at 11:10 a.m. with a 3 vessel cord. ? Mother and were stable after delivery. ? Lacerations:? Shallow left periurethral laceration, hemostatic and not requiring repair. ? Blood loss: 150 mL. Blood loss measurement type: EBL ? Sponge and needles counts are correct. Estimated blood loss (mL): 150 Infant Gender: Female total score - 1 minute: 8 total score - 5 minute: 8
[2023-11-29] MEDS: ENOXAPARIN 40 MG/0.4 ML INJ SUBCUT (22:59)
[2023-11-30] VITALS: BP 121/70; PULSE 79; RESP 18; TEMP 36.8; O2SAT 97
[2023-11-30 04:00] VITALS: BP 134/74; PULSE 79; RESP 18; TEMP 36.4; O2SAT 97
[2023-11-30 09:46] VITALS: BP 116/66; PULSE 79; RESP 16; TEMP 36.4
[2023-11-30] MEDS: DOCUSATE SODIUM 100 MG CAPSULE PO (09:53)
[2023-11-30] MEDS: IBUPROFEN 600 MG TABLET PO (09:53)
--- NOTE | 2023-11-30 10:12 | PM.OBDSVD1 ---
DS: Providers Provider Date Seen: 11/30/23 Date of admission: 11/28/23 16:42 Primary care physician: Celena Mccabe MD Admitting Clinician: Neda John MD Attending Physician on discharge: Karyn Mccormack APRN, AUNG DS: Diagnosis Discharge Diagnosis (1) care and examination immediately after delivery: Status: Acute (2) Chronic hypertension affecting : Status: Acute (3) Lactating mother: Status: Acute (4) History of DVT (deep vein thrombosis): Status: Acute Problem details: in 1st Exam Narrative: Exam Narrative: GENERAL APPEARANCE:? normal affect, alert, no distress MOOD:? appropriate CHEST:? clear to auscultation HEART:? regular rate and rhythm ABDOMEN:? soft, non-tender the uterine fundus is At Umbilicus, Midline and is appropriate for the stage of recovery. PERINEUM:? mild edema of the perineum. EXTREMITIES:? normal and no edema Const: Vital Signs, click to edit/add: Vital Signs - 24 hr 11/29/23 10:20 11/29/23 10:21 11/29/23 10:25 Temperature Pulse Rate Pulse Rate [Pulse Oximeter] Respiratory Rate Blood Pressure Blood Pressure [Le ft Arm] Pulse Oximetry 100 93 [facility] 10:29 11/29/23 10:30 11/29/23 10:33 Temperature Pulse Rate 93 Pulse Rate [Pulse Oximeter] Respiratory Rate Blood Pressure 130/82 Blood Pressure [Le ft Arm] Pulse Oximetry 86 L 71 L [facility] 11/29/23 10:35 11/29/23 10:37 11/29/23 10:39 Temperature Pulse Rate 69 72 65 Pulse Rate [Pulse Oximeter] Respiratory Rate Blood Pressure 134/77 135/71 131/68 Blood Pressure [Le ft Arm] Pulse Oximetry 99 78 L [facility] 11/29/23 10:40 11/29/23 10:41 11/29/23 10:43 Temperature Pulse Rate 76 71 Pulse Rate [Pulse Oximeter] Respiratory Rate Blood Pressure 129/62 128/63 Blood Pressure [Le ft Arm] Pulse Oximetry 99 [facility] 11/29/23 10:45 11/29/23 10:47 11/29/23 10:49 Temperature Pulse Rate 77 69 69 Pulse Rate [Pulse Oximeter] Respiratory Rate Blood Pressure 132/63 133/68 129/69 Blood Pressure [Le ft Arm] Pulse Oximetry 99 [facility] 11/29/23 10:50 11/29/23 10:51 11/29/23 10:55 Temperature Pulse Rate 75 Pulse Rate [Pulse Oximeter] Respiratory Rate Blood Pressure 132/75 Blood Pressure [Le ft Arm] Pulse Oximetry 98 98 [facility] 11/29/23 10:59 11/29/23 11:00 11/29/23 11:05 Temperature Pulse Rate 94 Pulse Rate [Pulse Oximeter] Respiratory Rate Blood Pressure 115/60 Blood Pressure [Le ft Arm] Pulse Oximetry 98 95 [facility] 11/29/23 11:09 11/29/23 11:10 11/29/23 11:26 Temperature 98.7 F Pulse Rate 85 84 Pulse Rate [Pulse Oximeter] Respiratory Rate Blood Pressure 121/75 103/64 Blood Pressure [Le ft Arm] Pulse Oximetry [facility] 11/29/23 11:40 11/29/23 11:56 11/29/23 12:10 Temperature Pulse Rate 74 78 70 Pulse Rate [Pulse Oximeter] Respiratory Rate Blood Pressure 105/71 104/51 L 102/51 L Blood Pressure [Le ft Arm] Pulse Oximetry [facility] 11/29/23 12:25 11/29/23 12:40 11/29/23 12:55 Temperature Pulse Rate 68 63 60 Pulse Rate [Pulse Oximeter] Respiratory Rate Blood Pressure 102/59 L 109/59 L 102/57 L Blood Pressure [Le ft Arm] Pulse Oximetry [facility] 11/29/23 13:11 11/29/23 14:36 11/29/23 16:54 Temperature 97.6 F Pulse Rate 67 66 Pulse Rate [Pulse Oximeter] 74 Respiratory Rate 18 Blood Pressure 125/70 116/75 Blood Pressure [Le ft Arm] 115/67 Pulse Oximetry 98 [facility] 11/29/23 21:00 11/30/23 00:00 11/30/23 04:00 Temperature 97.7 F 98.3 F 97.6 F Pulse Rate Pulse Rate [Pulse Oximeter] 63 79 79 Respiratory Rate 18 18 18 Blood Pressure Blood Pressure [Le ft Arm] 119/68 121/70 134/74 Pulse Oximetry 97 97 97 [facility] Room Air Room Air 11/30/23 09:46 Temperature 97.6 F Pulse Rate Pulse Rate [Pulse Oximeter] Respiratory Rate 16 Blood Pressure Blood Pressure [Le ft Arm] 116/66 Pulse Oximetry Oxygen Delivery Me thod Room Air OB - DS: Summary Hospital Course Hospital Course: Kalyani is a 33 y.o. G 5 P 2 who was admitted to [facility] for induction of labor. ?She had a NVD that was uncomplicated. The patient feels well. ?The pain is well controlled with current medications. ?She has no new complaints. ?She is breast feeding and reports things are going well. the patient has done well.? Vitals have been stable.? She has remained afebrile.? Has a good appetite, is tolerating a general diet. ?She is voiding without difficulty.? She is passing gas and has not had a bowel movement.? She is ambulating and denies any dizziness.? Has small amount of rubra lochia. She is planning Nexplanon for prevention. She desires discharge today, reviewed with Dr. Wood who agrees with plan Problems: Chronic HTN, BP stable plan: Discharge home with baby. Follow up in 2 weeks and 6 weeks. , may see if needed Hgb 12.0. Iron supplement ordered orally every other day History of DVT. Continue Lovenox through 6 weeks Chronic HTN, Has BP cuff at home Labs WNL Follow up in 3-5 days Call for signs/symptoms of preeclampsia Peripartum Data Infant delivery method: Vaginal Laceration description: None Gender: Female Discharge Plan: Home Status at Discharge Functional status at discharge: independent ambulation Overall status at discharge: patient is progressing back to baseline Time Spent with Patient Time attestation: Total time spent providing and/or coordinating discharge services: Time spent: Less than 30 minutes Discharge Plan Discharge Disposition: Home, Self-Care Date of Admission: 11/28/23 16:42 Attending Provider on Discharge: Karyn Mccormack Primary Care Provider: Celena Mccabe Condition: Stable Anticipated Discharge Date/Time: 11/30/23 12:00 Discharge Medications: New docusate sodium 100 mg Capsule 100 mg PO DAILY Qty: 90 0RF ibuprofen 600 mg Tablet 600 mg PO Q6H PRNQty: 60 0RF acetaminophen 500 mg Tablet 1,000 mg PO Q6H PRNQty: 0 0RF Continued sumatriptan succinate 25 mg tablet See Rx Instructions PO .COMPLEX Qty: 14 12RF Rx Instructions: take 1 tab at onset of headache; if no relief may repeat 1 tab after at least 2 hrs; max = 4 tabs/24 hr PO ondansetron HCl 4 mg tablet 4 mg PO BID PRN (Reason: nausea and vomiting) Qty: 30 1RF Rx Instructions: disp odt if covered calcium carbonate [Tums] 200 mg calcium (500 mg) tablet,chewable 200 mg PO BID Prenatabs Rx 29 mg iron- 1 mg tablet 1 tab PO QDAY Qty: 30 6RF omeprazole 20 mg capsule,delayed release(DR/EC) 20 mg PO DAILY enoxaparin [Lovenox] 40 mg/0.4 mL syringe 40 mg subcut Q24H Qty: 4 12RF Discharge Orders: Discharge Order (Routine); Ordered 11/30/23 Ordered By: Karyn Mccormack Consulting provider completed their portion of the discharge: No Patient Education: OB Over the Counter Medication Information, OB Vaginal/Breast Feeding Additional Instructions: Discharge instructions were reviewed with the patient including signs and symptoms of infection and home going medications Nothing vaginally for 6 weeks: no tampons or intercourse Do not drive while taking narcotic pain medication(s) Off Work or School for 6 weeks [facility] for a BP check?3-5 days, may do virtually Call with BP greater than or equal to 160/110 2-week visit: discuss infant feeding concerns, review control options and screen for anxiety/depression. 6-week visit for an annual exam. consultation services are available to all mothers and babies for the first year after delivery.? To make an appointment, please call [phone]. Activity Level: Activity as Tolerated Discharge Diet: Regular Follow Up Appointments: [facility] [Provider Group] Forms: MyHealth Info Instructions
[2023-11-30 12:03] VITALS: BP 133/71; PULSE 79; TEMP 36.4
--- NOTE | 2023-11-30 12:40 | PM.ANPOST ---
Post Anesthesia Note Post Anesthesia Note Patient seen: Inpatient Respiratory Status: adequate Cardiovascular Status: adequate Mental Status: baseline Pain: adequate Temp: baseline Anesthetic awareness: N/A Complications: none Follow care: none
[2023-11-30 23:28] LABS: Rapid Plasma Reagin (RPR) Non Reactive (Non Reactive)
== END 2023-11-30 13:12 | disposition home or self-care (01) | DRG 807 ==
PROVIDERS: Obstetrics & Gynecology; Admitting Provider Obstetrics & Gynecology; PCP Family Medicine; Visit Provider Obstetrics & Gynecology
DX: O10.02 Pre-existing essential hypertension complicating childbirth (principal); Z37.0 Single live birth; Z3A.37 37 weeks gestation of pregnancy; Z86.718 Personal history of other venous thrombosis and embolism; Z79.01 Long term (current) use of anticoagulants; O99.62 Diseases of the digestive system complicating childbirth; K21.9 Gastro-esophageal reflux disease without esophagitis; Z86.59 Personal history of other mental and behavioral disorders; O71.82 Other specified trauma to perineum and vulva
CPT/HCPCS: 01967; 36415; 59200; 82565; 82570; 84156; 84450; 84460; 84520; 85018; 85025; 85384; 85610; 85730; 86592; 86850; 86900; 86901; 88307; A9270; J0665; J1650; J2371; J2795; J3010; J7120

== ENCOUNTER 2024-01-11 11:54 | Outpatient (CLI) | payer MEDICAID, SELFPAY ==
--- OUTSIDE RECORDS SUMMARY | 2024-01-11 11:57 | XMS_ITS | Referral Summary ---
Author Organization [facility] Address [address] [place] [id number] Care Team Providers Care Commercial Sales Consultant Name Role Phone No Ref-Primary, Physician Primary Care Provider Peg Oleary MD Unavailable [phone] Allergies No known active allergies Medications [...] Comments Blood Pressure 119/82 07/18/2023 12:05 PM TRAVEL PT Pulse 78 07/18/2023 12:05 PM TRAVEL PT Temperature - - Respiratory Rate 18 07/18/2023 12:05 PM TRAVEL PT Oxygen Saturation 99% 07/18/2023 12:05 PM TRAVEL PT Inhaled Oxygen Concentration - - Weight 105.5 kg (232 lb 8 oz) 07/18/2023 12:05 P M TRAVEL PT Height 180.3 cm (5' 11) 07/18/2023 12:05 PM TRAVEL PT Body Mass Index 32.43 07/18/2023 12:05 PM TRAVEL PT Plan of Treatment Not on file Care Teams Commercial Sales Consultant Relationship Specialty Start Date End Date No Ref-Primary, Physician PCP - General 06/15/23 Peg Oleary MD [address] [place], [place] [address] Assigned OBGYN Provider 08/04/23
--- OUTSIDE RECORDS SUMMARY | 2024-01-11 11:57 | XMS_ITS | Clinical Summary ---
Author Organization [facility] Address [address] [place] [id number] Care Team Providers Care Dough Molder Name Role Phone No Ref-Primary, Physician Primary Care Provider Peg Oleary MD Unavailable Allergies No known active allergies Medications Medication [...] Comments Blood Pressure 119/82 07/18/2023 12:05 PM SENIOR CLINICAL DATA MANAGER Pulse 78 07/18/2023 12:05 PM SENIOR CLINICAL DATA MANAGER Temperature - - Respiratory Rate 18 07/18/2023 12:05 PM SENIOR CLINICAL DATA MANAGER Oxygen Saturation 99% 07/18/2023 12:05 PM SENIOR CLINICAL DATA MANAGER Inhaled Oxygen Concentration - - Weight 105.5 kg (232 lb 8 oz) 07/18/2023 12:05 P M SENIOR CLINICAL DATA MANAGER Height 180.3 cm (5' 11) 07/18/2023 12:05 PM SENIOR CLINICAL DATA MANAGER Body Mass Index 32.43 07/18/2023 12:05 PM SENIOR CLINICAL DATA MANAGER Plan of Treatment Health Maintenance Due Date Last Done Comments ADVANCE CARE PLANNING 1992 ANNUAL REVIEW OF HM ORDERS 1992 YEARLY PREVENTIVE VISIT 1992 HIV SCREENING 10/07/2007 HEPATITIS C SCREENING 2010 COVID-19 Vaccine ( season) 2023 MATERNAL SCREENING DISCUSSION 05/17/2023 PHQ-2 (once per calendar year) 2023 OBGCT (OB) 08/23/2023 GROUP B STREP SCREENING 11/15/2023 INFLUENZA VACCINE (#1) 2024 07/27/2018 PAP 03/27/2026 03/27/2023, 03/27/2023 DTAP/TDAP/TD [...] 60+) (No Doses Required) Completed Care Teams Dough Molder Relationship Specialty Start Date End Date No Ref-Primary, Physician PCP - General 06/15/23 Peg Oleary MD [address] [place] [id number] Assigned OBGYN Provider 08/04/23
--- OUTSIDE RECORDS SUMMARY | 2024-01-11 11:57 | XMS_ITS | Clinical Summary ---
Author Organization [employer] [facility] Address [place], [place] [address] Care Team Providers Care Z Os Mainframe Systems Programmer Name Role Phone Iris Rapp MD Primary Care Provider [phone] Allergies No known active allergies Medications Medication Sig Dispensed Refills Start Date End Date Status acetaminophen 325 mg cap Take 1-2 Tablets by mouth every 4 hours if needed. Active Trinatal Rx 1 60 mg iron-1 mg tablet 02/09/2021 Active enoxaparin (LOVENOX) 40 mg/0.4 mL injection Daily 09/03/2021 Ac tive Active Problems Problem Noted Date Diagnosed Date [facility] Supervision of high-risk Overview: [facility] CONSULTATION ON October 11, 2021 --Virtual Visit [facility] pt was previous [facility] pt in 2020 CONSULT VISIT ALERT: [...] delivery requiring transfusion 2020 ?? Pt saw [place] oncology 03/2021--she will have records faxed over ?? Migraines ?? Hx frequent UTIs ?? Hx depression ?? BMI = 28 LAST GROWTH: 09/04/21 (8w2d) EDC 04/12/22 REFERRING PHYSICIAN/PHONE/LAST UPDATE: Dr. Lizzeth Stovall, [place] [phone] Primary MD approves scheduling of recommended ultrasounds/testing: [...] , antepartum, third trimester 01/29/2021 0 02/28/2021 [facility] Supervision of high risk 01/28/2021 2021 Overview: [facility] CONSULTATION ON 01/28/21 --LUIS to [facility] on 02/01/21 (34w1d) NEXT VISIT ALERTS: [...] delivery: 02/28/21 Induction - Preferred delivery location: [place] Patient is on Therapeutic Lovenox. Refer to [facility] Anticoagulation Doc Flow Sheet every visit Routine Labs: Platelet count: 02/01/21 378,000 Monthly: Due done 02/01/21-03/04/21 Lovenox Levels (for therapeutic dosing only): Due ~ 02/01/21=1.09 (No more lovenox levels during per Dr. Ureña unless dosing changes. ) Next draw: PRIMARY DIAGNOSIS: 30 y.o. Estimated Date of Delivery: 03/14/21 Large occlusive DVT, left femoral vein, dx at [place] [facility] (01/21/21) - 01/22/21 admitted to [facility] for evaluation and management of worsening pain with a known left femoral DVT - 01/23/21 left AMA prior to evaluation by lens edge grinder machine DEVIKAN --checking home BP Has been evaluated a few times for PIH BMI = 30.5 LAST GROWTH: 02/11/21 L2 35w4d EFW 2369 grams, percentile: 20% 10/23/20 anatomy screen, EIF REFERRING PHYSICIAN/PHONE/LAST UPDATE: Janie Pepe MD, [place], Primary MD approves scheduling of recommended ultrasounds/testing: Yes SPECIALISTS/CONSULTS: Include: Specialty MD Clinic Name Phone# [place] and ADDED TO PATIENT CARE TEAM Yes CARE COORDINATION: GENETICS: Low risk NIPS PROCEDURES: PERTINENT MEDS: lovenox 100 mg BID Oxycodone Tylenol, PNV ORTIZ signed for [facility]: MATERNAL CARE COORDINATION: CARE COORDINATION: OPENER VERIFIER PACKER CUSTOMS: ROUTINE OB: COVID-19 vaccine: Date(s) given: declined [...] days of scheduled delivery @ a main [facility] site H&P needed 30 days before delivery Date: PPTL: Yes No Is Medical assistance? Yes PPTL Permit signed: Date: Scanned date: CHECKLIST FOR SCHEDULING PROCEDURES: Call [phone] for [place] and [phone] for [employer] Procedure: Induction Hospital: [place] Unit: L&D Date & Time of procedure: 02/28/21 730 PM Feliciano Score if induction: Pertinent information: DVT left leg, therapeutic lovenox Gestational age on procedure date? 40 MD doing procedure: OB[facility] LB Date scheduled: 02/19/2021 when patient was 36w5d. Scheduling MD & RN: KASSANDRA/JENNIFER Notifications: Hospitalist Delivery-OBH long term notified through W[employer] inbox? Yes [facility] MD long term notified via Wyst inbox? Yes Primary MD notified via Wyst inbox? Yes Primary MD clinic called if not [employer]? Not Applicable On [facility] calendar? Yes Care Coordination notified? Yes H&P/PPTL: PPTL permit signed? No H&P and Plan in chart? Yes [facility] appointment made for H&P with SUPPORT WORKER within 30 days of procedure? Yes 02/01/21 Date: Regardless of vaccination status, all procedures require a COVID-19 test . Patients should be scheduled for a COVID-19 test within 3-5 days prior to the scheduled procedure to be done in main [facility] Clinic 02/26/21Date: * Patient notification: Patient notified of procedure date? Yes Written admission instructions given to patient via AVS? No PLAN OF CARE: per consult note on 01/29/21: care: ?? LUIS recommended:Yes ??Recommendations for Delivery: ?? Hospital Location:[facility] Mother Baby [place] ?? Timin wks gestation ?? Mode:IOL at 38 wks weeks - scheduled No ?? Provider: [facility] ?? Special considerations ? Discontinue Lovenox 24 hours prior to IOL or at the onset of contractions DVT complicating , third trimester 01/22/2021 02/28/2021 related leg pain i n third trimester, antepartum 01/22/2021 02/28/2021 Overview: transfer from [place] 32w 5d gestation of 01/22/2021 01/29/2021 Anxiety 11/01/2012 01/29/2021 Encounters Date Type Department Care Team Description 11/29/2023 Lab Requisition [facility] [phone] Iris Rapp MD from Last 3 Months Family History Medical History Relation Name Comments [...] bor (< 3 hours) Delivery Location:Hospital ( [facility] 2000 MB L&D TRIAGE) Comments:DVT at 32 wee [...] Procedure Name Priority Date/Time Associated Diagnosis Comments LAB TRACKING EVENT Routine 11/29/2023 11 :10 AM CDT PATH TISSUE EXAM PLACENTA Routine 11/29/2023 11:06 AM CDT HPV THIN PREP Routine 03/27/2023 4:20 PM CDT HIV EXTERNAL Routine 08/14/2020 from Last 3 Months or Most Recently Relevant to Health Maintenance Results * LAB TRACKING EVENT (11/29/2023 11:10 AM CDT) Other (Other) Client Collect / Unknown 11/29/2023 11:10 AM CDT 11/29/2023 10:19 PM CDT Iris Rapp MD LAB BILL ONLY [facility]AL LABORATORY [address] [place] [address], * PATH TISSUE EXAM PLACENTA (11/29/2023 11:06 AM CDT) Case Report Pathology Report ?Case: [id number] ? Authorizing Provider: ??Iris Rapp MD ?? Collected: ? 11/29/2023 1106 ? Ordering Location: ? [facility] ?Received: ?11/30/2023 0910 ? Pathologist: ? Marlen Goff MD ? Specimen: ?Placenta ? 12/01/2023 5:02 PM CDT [facility]ORATORY Final Diagnosis A) PLACENTA, VAGINAL DELIVERY: 1. Third trimester carrizales placenta with the following characteristics: ? a. Weight: 444 grams (10-25th percentile for gestational age) ? b. Membranes/ surface: ?Mildly increased subchorionic fibrin ?Negative for chorioamnionitis ? c. Umbilical cord: ?Three vessel cord ?Negative for funisitis ? d. Disc/Villi: ?Chorionic villi consistent with gestational age ?Perivillous fibrin plaque, less than 5% disc volume ?Negative for villitis ?Placental disc without infarcts ? e. Decidua/basal plate: ?No diagnostic abnormalities identified 12/01/2023 5:02 PM CDT [facility] LABORATORY-C ENTRAL LABORATORY Comment The patient's clinical history of hypertension is noted. Some histologic features that can be associated with maternal hypertensive disorders include decidual vasculopathy, infarcts, abruption, villous maldevelopment, and small placental size. In this case, none of these findings are seen. 12/01/2023 5:02 PM CDT [facility] LABORATORY-C ENTRAL LABORATORY Clinical Information Indications for Placental Examination by Pathology / indications: none Maternal indications: ??Hypertension Placental indications: none Infectious specimen (e.g. maternal HIV or HCV): No Clinical information: Date of delivery: 11/19/2023 Time of delivery: 1106 Type of delivery: Vaginal Live born:Yes Gestational age: 38.0 weeks weight of infant(s): 2700 grams Sex of infant (s): ??Female Pertinent Maternal History: Maternal parity: Diabetes: No Hypertension: Yes Eclampsia: No Smoking: No 12/01/2023 5:02 PM CDT [facility] LABORATORY-C ENTRAL LABORATORY Gross Description A) Received fresh labeled with the patient's name and placenta, is a 444 gram, 19.4 x 17.5 x 2.1 cm carrizales placenta. The surface is blue-breaux with normal vasculature. The 26.6 cm long, 1.5 cm diameter trivascular umbilical cord is eccentrically inserted 5.3 cm from the nearest edge of the placental plate. ??Also in the container is a 13.0 cm in length by 1.5 cm in diameter unattached umbilical cord. ??Umbilical cords are free of true and false knots. ??There are 1.5 revolutions per 10 cm. ??The extraplacental membranes are pink semitransparent and marginally inserted. The maternal surface is complete with intact cotyledons. ??Sectioning reveals red hemorrhagic and spongy throughout with 6 subchorionic areas of white discoloration and induration ranging from 0.6 cm up to 1.5 x 1.0 x 0.4 cm and 1 parenchymal ??1.7 x 1.3 x 1.3 cm area of induration and discoloration accounting for less than 5% of the total volume. Form Layer sections are submitted: 1. ?? membranes and insertion 2. ??Umbilical cord 3. ??Moderate at umbilical cord insertion, full-thickness 4-5. ??Central placenta parenchyma, full-thickness 6. ??Central parenchyma with subchorionic area of induration, full-thickness 7. ??Central parenchyma with induration, full-thickness Time and date in formalin: 1035 on 11/30/2023 TRS 11/30/2023 12/01/2023 5:02 PM CDT [facility] Microscopic Description The final diagnosis is based on microscopic examination of appropriate sections of all specimens. 12/01/2023 5:02 PM CDT [facility] Additional Information Interpreted at [facility] - [address] [facility] [address], [place] [address] 12/01/2023 5:02 PM CDT [facility] Tissue SPECIMEN FROM PLACENTA / Unknown 11/29/2023 11:06 AM CDT 11/30/2023 9:10 AM CDT Iris Rapp MD PATHOLOGY/CYTOLOG Y [facility] [address] * HPV HIGH RISK (03/27/2023 4:20 PM CDT) TYPE 16 Negative Negative 03/31/2023 5:32 AM CDT [facility] TRAL LABORATORY TYPE 18 Negative Negative 03/31/2023 5:32 AM CDT [facility] TRA LABORATORY OTHER HIGH RISK TYPES Negative Negative 03/31/2023 5:32 AM CDT [facility] Other (Cervical) 03/27/2023 4:20 PM CDT 03/29/2023 2:49 PM CDT Narrative [facility] - 03/31/2023 5:32 AM CDT HPV types 16, 18, 31, 33, 35, 39, 45, 51, 52, 56, 58, 59, 66 and 68 DNA were undetectable or below the pre-set threshold. Methodology: Bacilio Yvonne 4800 HPV Test Celena Mccabe MD MICROBIOLOGY [facility] [address] [place] [address], * HIV EXTERNAL (08/14/2020) EXTERNAL HIV Negative [facility] Blood BLOOD SPECIMEN / Unknown September [facility] [address] from Last 3 Months or Most Recently [...] Comments Code Status Discussion: Discussed Care Teams [employer] Programmer Relationship Specialty Start Date End Date Iris Rapp MD [address] [place] [address] PCP - General Obstetrics and Gynecology 01/28/21
== END 2024-01-11 11:55 | disposition home or self-care (01) ==
PROVIDERS: PCP Family Medicine; Visit Provider Obstetrics & Gynecology
DX: R10.13 Epigastric pain (principal)
CPT/HCPCS: 80076; 82150; 83690

== ENCOUNTER 2024-01-16 07:41 | Outpatient (CLI) | payer MEDICAID, SELFPAY ==
--- OUTSIDE RECORDS SUMMARY | 2024-01-16 07:43 | XMS_ITS | Referral Summary ---
Author Organization [place] Address [address] [place] [address] Care Team Providers Care Water Pollution Specialist Name Role Phone No Ref-Primary, Physician Primary Care Provider Peg Oleary MD Unavailable [phone] Allergies No known active allergies Medications [...] Comments Blood Pressure 119/82 07/18/2023 12:05 PM IRRIGATION EQUIPMENT INSTALLER Pulse 78 07/18/2023 12:05 PM IRRIGATION EQUIPMENT INSTALLER Temperature - - Respiratory Rate 18 07/18/2023 12:05 PM IRRIGATION EQUIPMENT INSTALLER Oxygen Saturation 99% 07/18/2023 12:05 PM IRRIGATION EQUIPMENT INSTALLER Inhaled Oxygen Concentration - - Weight 105.5 kg (232 lb 8 oz) 07/18/2023 12:05 P M IRRIGATION EQUIPMENT INSTALLER Height 180.3 cm (5' 11) 07/18/2023 12:05 PM IRRIGATION EQUIPMENT INSTALLER Body Mass Index 32.43 07/18/2023 12:05 PM IRRIGATION EQUIPMENT INSTALLER Plan of Treatment Not on file Care Teams Water Pollution Specialist Relationship Specialty Start Date End Date No Ref-Primary, Physician PCP - General 06/15/23 Peg Oleary MD [address] [place], [place] [address] Assigned OBGYN Provider 08/04/23
--- OUTSIDE RECORDS SUMMARY | 2024-01-16 07:43 | XMS_ITS | Clinical Summary ---
Author Organization [place] Address [address] [place] [address] Care Team Providers Care Derrickman Helper Name Role Phone No Ref-Primary, Physician Primary Care Provider Peg Oleary MD Unavailable [phone] Allergies No known active allergies Medications [...] Comments Blood Pressure 119/82 07/18/2023 12:05 PM CARPET FLOOR LAYER APPRENTICE Pulse 78 07/18/2023 12:05 PM CARPET FLOOR LAYER APPRENTICE Temperature - - Respiratory Rate 18 07/18/2023 12:05 PM CARPET FLOOR LAYER APPRENTICE Oxygen Saturation 99% 07/18/2023 12:05 PM CARPET FLOOR LAYER APPRENTICE Inhaled Oxygen Concentration - - Weight 105.5 kg (232 lb 8 oz) 07/18/2023 12:05 P M CARPET FLOOR LAYER APPRENTICE Height 180.3 cm (5' 11) 07/18/2023 12:05 PM CARPET FLOOR LAYER APPRENTICE Body Mass Index 32.43 07/18/2023 12:05 PM CARPET FLOOR LAYER APPRENTICE Plan of Treatment Health Maintenance Due Date [...] 60+) (No Doses Required) Completed Care Teams Derrickman Helper Relationship Specialty Start Date End Date No Ref-Primary, Physician PCP - General 06/15/23 Peg Oleary MD [address] [place] [id number] Assigned OBGYN Provider 08/04/23
--- OUTSIDE RECORDS SUMMARY | 2024-01-16 07:44 | XMS_ITS | Clinical Summary ---
Author Organization [employer] [facility] Address [place], [place] [address] Care Team Providers Care Carburetor Specialist Name Role Phone Iris Rapp MD Primary Care Provider [phone] Allergies No known active allergies Medications Medication Sig Dispensed Refills Start Date End Date Status acetaminophen 325 mg cap Take 1-2 Tablets by mouth every 4 hours if needed. Active Trinatal Rx 1 60 mg iron-1 mg tablet 02/09/2021 Active enoxaparin (LOVENOX) 40 mg/0.4 mL injection Daily 09/03/2021 Ac tive Active Problems Problem Noted Date Diagnosed Date [facility] Supervision of high-risk Overview: [facility] CONSULTATION ON October 11, 2021 --Virtual Visit [facility] pt was previous [facility] pt in 2020 CONSULT VISIT [...] delivery requiring transfusion 2020 ?? Pt saw [place] oncology 03/2021--she will have records faxed over ?? Migraines ?? Hx frequent UTIs ?? Hx depression ?? BMI = 28 LAST GROWTH: 09/04/21 (8w2d) EDC 04/12/22 REFERRING PHYSICIAN/PHONE/LAST UPDATE: Dr. Lizzeth Stovall, [place] [phone] Primary MD approves scheduling of recommended ultrasounds/testing: [...] , antepartum, third trimester 01/29/2021 0 02/28/2021 [facility] Supervision of high risk 01/28/2021 2021 Overview: [facility] CONSULTATION ON 01/28/21 --LUIS to [facility] on 02/01/21 (34w1d) NEXT VISIT [...] delivery: 02/28/21 Induction - Preferred delivery location: [place] Patient is on Therapeutic Lovenox. Refer to [facility] Anticoagulation Doc Flow Sheet every visit Routine Labs: Platelet count: 02/01/21 378,000 Monthly: Due done 02/01/21-03/04/21 Lovenox Levels (for therapeutic dosing only): Due ~ 02/01/21=1.09 (No more lovenox levels during per Dr. Ureña unless dosing changes. ) Next draw: PRIMARY DIAGNOSIS: 30 y.o. Estimated Date of Delivery: 03/14/21 Large occlusive DVT, left femoral vein, dx at [place] ER (01/21/21) - 01/22/21 admitted to [facility] for evaluation and management of worsening pain with a known left femoral DVT - 01/23/21 left AMA prior to evaluation by him assistant DEVIKAN --checking home BP Has been evaluated a few times for PIH BMI = 30.5 LAST GROWTH: 02/11/21 L2 35w4d EFW 2369 grams, percentile: 20% 10/23/20 anatomy screen, EIF REFERRING PHYSICIAN/PHONE/LAST UPDATE: Janie Pepe MD, [place], Primary MD approves scheduling of recommended ultrasounds/testing: Yes SPECIALISTS/CONSULTS: Include: Specialty MD Clinic Name Phone# [place] and ADDED TO PATIENT CARE TEAM Yes CARE COORDINATION: GENETICS: Low risk NIPS PROCEDURES: PERTINENT MEDS: lovenox 100 mg BID Oxycodone Tylenol, PNV ORTIZ signed for [facility]: MATERNAL CARE COORDINATION: CARE COORDINATION: EXERCISE SCIENTIST: ROUTINE OB: COVID-19 vaccine: Date(s) given: declined [...] days of scheduled delivery @ a main [facility] site H&P needed 30 days before delivery Date: PPTL: Yes No Is Medical assistance? Yes PPTL Permit signed: Date: Scanned date: CHECKLIST FOR SCHEDULING PROCEDURES: Call [phone] for [place] and [phone] for [employer] Procedure: Induction Hospital: [place] Unit: L&D Date & Time of procedure: 02/28/21 730 PM Feliciano Score if induction: Pertinent information: DVT left leg, therapeutic lovenox Gestational age on procedure date? 40 MD doing procedure: OBH LB Date scheduled: 02/19/2021 when patient was 36w5d. Scheduling MD & RN: KASSANDRA/JENNIFER Notifications: Hospitalist Delivery-OBH supervisor fabrication notified through Appin[employer] inbox? Yes [facility] MD supervisor fabrication notified via Appin[employer] inbox? Yes Primary MD notified via Appin[employer] inbox? Yes Primary MD clinic called if not [employer]? Not Applicable On [facility] calendar? Yes Care Coordination notified? Yes H&P/PPTL: PPTL permit signed? No H&P and Plan in chart? Yes [facility] appointment made for H&P with DOCTOR OF NURSE ANESTHESIA within 30 days of procedure? Yes 02/01/21 Date: Regardless of vaccination status, all procedures require a COVID-19 test . Patients should be scheduled for a COVID-19 test within 3-5 days prior to the scheduled procedure to be done in main [facility] Clinic 02/26/21Date: * Patient notification: Patient notified of procedure date? Yes Written admission instructions given to patient via AVS? No PLAN OF CARE: per consult note on 01/29/21: care: ?? LUIS recommended:Yes ??Recommendations for Delivery: ?? Hospital Location:[facility] Mother Baby [place] ?? Timin wks gestation ?? Mode:IOL at 38 wks weeks - scheduled No ?? Provider: [facility] ?? Special considerations ? Discontinue Lovenox 24 hours prior to IOL or at the onset of contractions DVT complicating , third trimester 01/22/2021 02/28/2021 related leg pain i n third trimester, antepartum 01/22/2021 02/28/2021 Overview: transfer from [place] 32w 5d gestation of 01/22/2021 01/29/2021 Anxiety 11/01/2012 01/29/2021 Encounters Date Type Department Care Team Description 11/29/2023 Lab Requisition [facility] [phone] Iris Rapp MD from Last 3 Months [...] bor (< 3 hours) Delivery Location:Hospital ( [facility] [address] MB L&D TRIAGE) Comments:DVT [...] CDT Iris Rapp MD LAB BILL ONLY [facility]-C[facility]AL LABORATORY [address] [place] [address], * PATH TISSUE EXAM PLACENTA (11/29/2023 11:06 AM CDT) Case Report Pathology Report ?Case: [id number] ? Authorizing Provider: ??Iris Rapp MD ?? Collected: ? 11/29/2023 1106 ? Ordering Location: ? [facility] ?Received: ?11/30/2023 0910 ? Pathologist: ? Marlen Goff MD ? Specimen: ?Placenta ? 12/01/2023 5:02 PM CDT [facility]ORATORY Final Diagnosis A) PLACENTA, [...] diagnostic abnormalities identified 12/01/2023 5:02 PM CDT [facility] LABORATORY-C ENTRAL LABORATORY Comment The patient's clinical history of hypertension is noted. Some histologic features that can be associated with maternal hypertensive disorders include decidual vasculopathy, infarcts, abruption, villous maldevelopment, and small placental size. In this case, none of these findings are seen. 12/01/2023 5:02 PM CDT [facility] LABORATORY-C ENTRAL LABORATORY Clinical Information Indications for [...] No Smoking: No 12/01/2023 5:02 PM CDT [facility] LABORATORY-C ENTRAL LABORATORY Gross Description A) Received [...] less than 5% of the total volume. Associate Automation Engineer sections are submitted: 1. ?? membranes and insertion 2. ??Umbilical cord 3. ??Moderate at umbilical cord insertion, full-thickness 4-5. ??Central placenta parenchyma, full-thickness 6. ??Central parenchyma with subchorionic area of induration, full-thickness 7. ??Central parenchyma with induration, full-thickness Time and date in formalin: 1035 on 11/30/2023 TRS 11/30/2023 12/01/2023 5:02 PM CDT [facility] Microscopic Description The final diagnosis is based on microscopic examination of appropriate sections of all specimens. 12/01/2023 5:02 PM CDT [facility] Additional Information Interpreted at [facility] - [address] [facility] [address], [place] [address] 12/01/2023 5:02 PM CDT [facility] Tissue SPECIMEN FROM PLACENTA / Unknown 11/29/2023 11:06 AM CDT 11/30/2023 9:10 AM CDT Iris Rapp MD PATHOLOGY/CYTOLOG Y [facility] [address] * HPV HIGH RISK (03/27/2023 4:20 PM CDT) TYPE 16 Negative Negative 03/31/2023 5:32 AM CDT [facility] TRAL LABORATORY TYPE 18 Negative Negative 03/31/2023 5:32 AM CDT [facility] TRA LABORATORY OTHER HIGH RISK TYPES Negative Negative 03/31/2023 5:32 AM CDT [facility] Other (Cervical) 03/27/2023 4:20 PM CDT 03/29/2023 2:49 PM CDT Narrative [facility] - 03/31/2023 5:32 AM CDT HPV types 16, 18, 31, 33, 35, 39, 45, 51, 52, 56, 58, 59, 66 and 68 DNA were undetectable or below the pre-set threshold. Methodology: Bacilio Yvonne 4800 HPV Test Celena Mccabe MD MICROBIOLOGY [facility] [address] [place] [address], * HIV EXTERNAL (08/14/2020) EXTERNAL HIV Negative [facility] Blood BLOOD SPECIMEN / Unknown September [facility] [employer] [address] [address] from Last 3 Months or Most Recently [...] Comments Code Status Discussion: Discussed Care Teams Carburetor Specialist Relationship Specialty Start Date End Date Iris Rapp MD [address] [place] [address] PCP - General Obstetrics and Gynecology 01/28/21
--- NOTE | 2024-01-16 08:00 | CRLHL7_ITS ---
For Patients: As a result of the Century Cures Act, medical imaging exams and procedure reports are released immediately into your electronic medical record. You may view this report before your referring provider. If you have questions, please contact your health care provider. INDICATION: Epigastric pain, heartburn COMPARISON: none TECHNIQUE: Real time breaux scale imaging and color Doppler analysis was performed of the right upper quadrant. FINDINGS: The patient`s liver is of normal size and has uniform echogenicity. There is a normal appearance of the hepatic IVC and proximal abdominal aorta. There is no evidence of ascites. The gallbladder is of normal size and there are multiple layering echogenic stones along with sludge in the gallbladder lumen. The gallbladder wall measures 1.8 mm in thickness. The common bile duct is of normal size and measures 3.1 mm in diameter at the level of the shraddha hepatis. The pancreas appears normal. There is no evidence of a stone or hydronephrosis within the right kidney. The right kidney measures 10.4 cm in length. IMPRESSION: Stones and sludge in the gallbladder consistent with cholelithiasis. No biliary obstruction. Remainder unremarkable. Dictated by Chip Sandoval MD @ 01/16/2024 9:15:18 AM (Electronically Signed)
== END 2024-01-16 07:42 | disposition home or self-care (01) ==
LOC: US 07:42
PROVIDERS: PCP Family Medicine; Visit Provider Obstetrics & Gynecology
DX: R10.13 Epigastric pain (principal); K82.9 Disease of gallbladder, unspecified
CPT/HCPCS: 76705

== ENCOUNTER 2024-04-09 13:50 | Outpatient (CLI) | payer MEDICAID, SELFPAY ==
--- OUTSIDE RECORDS SUMMARY | 2024-04-09 13:55 | XMS_ITS | Clinical Summary ---
Author Organization [facility] Address [place], [place] [address] Care Team Providers Care Elevated Guard Name Role Phone Iris Rapp MD Primary Care Provider [phone] Allergies No known active allergies Medications Medication Sig Dispensed Refills Start Date End Date Status acetaminophen 325 mg cap Take 1-2 Tablets by mouth every 4 hours if needed. Active Trinatal Rx 1 60 mg iron-1 mg tablet Take 1 Tablet by mouth once daily. 02/09/2021 Active enoxaparin (LOVENOX) 40 mg/0.4 mL injection Daily 09/03/2021 04/04/2024 Discontinued( *Patient states no longer taking) Active Problems Problem Noted Date Diagnosed Date Choledocholithiasis 04/05/2024 Antiphospholipid syndrome 04/04/2024 Cholelithiasis 04/04/2024 History of deep venous thrombosis 07/18/2023 [facility] Supervision of high-risk Overview (10/07/2021): [facility] CONSULTATION ON October 11, 2021 --Virtual Visit [facility] pt was previous [facility] pt in 2020 CONSULT VISIT ALERT: Create and link episode at day of visit . Document in Dating section GA = 13w5d, EDC = 04/13/22 REASON FOR CONSULT: planning TODAY'S APPOINTMENT: Consultation PRIMARY DIAGNOSIS: 31 y.o. Estimated Date of Delivery:04/13/22 ?? CHTN ?? Hx large femoral DVT at 32w in last in 2020 --is currently on Lovenox 40 mg daily ?? Closely spaced (vag delivery 02/2021) ?? H/O PPH 2 weeks after delivery requiring transfusion 2020 ?? Pt saw [place] [facility] 03/2021--she will have records faxed over ?? Migraines ?? Hx frequent UTIs ?? Hx depression ?? BMI = 28 LAST GROWTH: 09/04/21 (8w2d) EDC 04/12/22 REFERRING PHYSICIAN/PHONE/LAST UPDATE: Dr. Lizzeth Stovall, [place] [phone] Primary MD approves scheduling of recommended ultrasounds/testing: Yes SPECIALISTS/CONSULTS: [facility] Include: Specialty MD Clinic Name Phone# LV NV and ADDED TO PATIENT CARE TEAM Yes CARE COORDINATION: GENETICS: Interested, checking insurance PROCEDURES: PERTINENT LABS: B POS PERTINENT MEDS: Lovenox 40 mg daily, BP cuff, PNV Preferred delivery location: PLAN OF CARE: Vaginal delivery 03/01/2021 COVID-19 02/26/2021 Chronic hypertension 02/11/2021 Anxiety 02/11/2021 Overview (02/11/2021): Has been on zoloft in the past Acute deep vein thrombosis ( DVT) of femoral vein of left lower extremity 01/29/2021 Overview (01/29/2021): Currently on therapeutic LMWH 100 milligrams subcutaneous 2x daily Resolved Problems Problem Noted Date Diagnosed Date Resolved Date Preexisting hypertension com plicating , antepartum, third trimester 01/29/2021 0 02/28/2021 [facility] Supervision of high risk 01/28/2021 2021 Overview (03/01/2021): [facility] CONSULTATION ON 01/28/21 --LUIS to [facility] on 02/01/21 (34w1d) NEXT VISIT [...] delivery: 02/28/21 Induction - Preferred delivery location: [facility] Patient is on Therapeutic Lovenox. Refer to [facility] Anticoagulation Doc Flow Sheet every visit Routine Labs: Platelet count: 02/01/21 378,000 Monthly: Due done 02/01/21-03/04/21 Lovenox Levels (for therapeutic dosing only): Due ~ 02/01/21=1.09 (No more lovenox levels during per Dr. Ureña unless dosing changes. ) Next draw: PRIMARY DIAGNOSIS: 30 y.o. Estimated Date of Delivery: 03/14/21 Large occlusive DVT, left femoral vein, dx at [place] [facility] (01/21/21) - 01/22/21 admitted to [facility] for evaluation and management of worsening pain with a known left femoral DVT - 01/23/21 left AMA prior to evaluation by caisson worker ANUEL --checking home BP Has been evaluated a few times for PIH BMI = 30.5 LAST GROWTH: 02/11/21 L2 35w4d EFW 2369 grams, percentile: 20% 10/23/20 anatomy screen, EIF REFERRING PHYSICIAN/PHONE/LAST UPDATE: Janie Pepe MD, [place], Primary MD approves scheduling of recommended ultrasounds/testing: Yes SPECIALISTS/CONSULTS: Include: Specialty MD Clinic Name Phone# DK NV and ADDED TO PATIENT CARE TEAM Yes CARE COORDINATION: GENETICS: Low risk NIPS PROCEDURES: PERTINENT MEDS: lovenox 100 mg BID Oxycodone Tylenol, PNV ORTIZ signed for [facility]: MATERNAL CARE COORDINATION: CARE COORDINATION: BARBER OR BEAUTY SHOP MANAGER: ROUTINE OB: COVID-19 vaccine: Date(s) given: declined [...] days of scheduled delivery @ a main [facility] site H&P needed 30 days before delivery Date: PPTL: Yes No Is Medical assistance? Yes PPTL Permit signed: Date: Scanned date: CHECKLIST FOR SCHEDULING PROCEDURES: Call [phone] for [employer] and [phone] for [employer] Procedure: Induction Hospital: [facility] Unit: L&D Date & Time of procedure: 02/28/21 730 PM Feliciano Score if induction: Pertinent information: DVT left leg, therapeutic lovenox Gestational age on procedure date? 40 MD doing procedure: [facility] LB Date scheduled: 02/19/2021 when patient was 36w5d. Scheduling MD & RN: KASSANDRA/JENNIFER Notifications: Hospitalist Delivery-[facility] tactical air defense controller notified through Lizhi inbox? Yes [facility] MD tactical air defense controller notified via Lizhi inbox? Yes Primary MD notified via Lizhi inbox? Yes Primary MD clinic called if not Jan? Not Applicable On [facility] calendar? Yes Care Coordination notified? Yes H&P/PPTL: PPTL permit signed? No H&P and Plan in chart? Yes [facility] appointment made for H&P with FUNERAL SALES MANAGER within 30 days of procedure? Yes 02/01/21 Date: Regardless of vaccination status, all procedures require a COVID-19 test . Patients should be scheduled for a COVID-19 test within 3-5 days prior to the scheduled procedure to be done in main [facility] Clinic 02/26/21Date: * Patient notification: Patient notified of procedure date? Yes Written admission instructions given to patient via AVS? No PLAN OF CARE: per consult note on 01/29/21: care: ?? LUIS recommended:Yes ??Recommendations for Delivery: ?? Hospital Location:[facility] ?? Timin wks gestation ?? Mode:IOL at 38 wks weeks - scheduled No ?? Provider: [facility] ?? Special considerations ? Discontinue Lovenox 24 hours prior to IOL or at the onset of contractions DVT complicating , third trimester 01/22/2021 02/28/2021 related leg pain i n third trimester, antepartum 01/22/2021 02/28/2021 Overview (01/22/2021): transfer from [place] 32w 5d gestation of 01/22/2021 01/29/2021 Anxiety 11/01/2012 01/29/2021 Encounters Date Type Department Care Team Description 04/04/2024 7:25 PM CDT - 04/05/2024 2:00 PM CDT Hospital Encounter [facility] [address] [place] [address] Jose Miguel Urñea MD [facility], [facility] [place], MD Renny Franco Megan Maureen, DO Storlie, Tigre Chapman MD RUQ pain (Primary Dx); Elevated LFTs; Calculus of gallbladder with biliary obstruction but without cholecystitis Discharge Disposition: Home Self Care 04/04/2024 10:00 AM CDT Office Visit [facility] [address] [place] [address] Juliocesar Plaza MD Consult (Heartburn started in - severe abdominal pain that radiates to back) 04/04/2024 Travel 01/16/2024 Orders Only [facility] Scanner 1 scan: (1-Ord) [facility], [facility], 01/16/2024 from Last 3 Months Family History Medical [...] drink = 0.6 oz pur e alcohol) Social Connections Answer Date Recorded Do you often feel lonely or isolated from those around you? 0 04/05/2024 Financial Resource Strain Answer Date R ecorded Difficulty of Paying Living Expenses 3 04/05/2024 Difficulty of Paying Living Expenses Not on file 04/05/2024 Food Insecurity Answer Date Recorded Do you worry your food will run out before you are able to buy more? 1 04/05/2024 Transportation Needs Answer Date Record ed Does lack of transportation keep you from medica l appointments? 1 04/05/2024 Does lack of transportation keep you from work, meetings or getting things that you need? 1 04/05/2024 Housing Stability Answer Date Recorded What is your housing situation today? 1 04/05/2024 Sex and Gender Information Value Date Recorded [...] LUCIAN Epidur al Livin g 8 9 NADIA R,BG PRINCE White, Neena Sanchez , Complications:Precipitous la bor (< 3 hours) Delivery Location:Hospital ( [address] L&D TRIAGE) Comments:DVT at 32 wee [id number]--no meds, monitored at home, PPH 3 wks after delivery (was on Lovenox) Last Filed Vital Signs Vital Sign Reading Time Taken Comments Blood Pressure 130/74 04/05/2024 7:00 AM CDT Pulse 79 04/05/2024 7:00 AM CDT Temperature 36.6 ??C (97.8 ??F) 04/05/2024 7:00 AM CD T Respiratory Rate 18 04/05/2024 7:00 AM CDT Oxygen Saturation 98% 04/05/2024 7:00 AM CDT Inhaled Oxygen Concentration - - Weight 94.1 kg (207 lb 8 oz) 04/05/2024 4:00 AM CDT Height 182.9 cm (6') 04/04/2024 7:07 PM CDT Body Mass Index 28.14 04/04/2024 7:07 PM CDT Plan of Treatment Health Maintenance Due Date Last Done Comments Tdap 10/07/2003 BMI (ht and wt on same day) for age 18+ 2010 Tetanus booster 2012 Depression screening for age 12+ 02/11/2022 02/11/2021, 02/04/2021, 02/03/2021, Additional history exists COVID-19 vaccine series ( season) 2024 Influenza for age 9-49 02/11/2024 Pap test for age 21-65 03/27/2026 03/27/2023, 2022 HIV for age 15-65 Completed 08/14/2020 Hepatitis C screening for age 18-79 Completed 04/04/2024 Pneumococcal series for age 6-64 Aged Out No longer eligible based on patient's age to complete this topic Procedures Procedure Name Priority Date/Time Associated Diagnosis Comments BILIRUBIN,TOTAL/DIRE CT Early AM 04/05/2024 9:59 AM CDT AST (SGOT) Early AM 04/05/2024 9:59 AM CDT ALT (SGPT) Early AM 04/05/2024 9:59 AM CDT ALK PHOSPHATASE Early AM 04/05/2024 8:13 AM CDT US ABDOMEN LIMITED RUQ PORTABLE STAT 04/04/2024 7:58 PM CDT CBC WITH AUTO DIFFERENTIAL STAT 04/04/2024 7:37 PM CDT LIPASE STAT 04/04/2024 7:37 PM CDT PROTIME-INR STAT 04/04/2024 7:37 PM CDT HEPATIC FUNCTION PANEL STAT 04/04/2024 7:37 PM CDT BASIC METABOLIC PANEL STAT 04/04/2024 7:37 PM CDT CBC WITH AUTO DIFFERENTIAL STAT 04/04/2024 7:37 PM CDT ACUTE HEPATITIS PANEL JANUSZ 04/04/2024 10:40 AM CDT CBC WITH AUTO DIFFERENTIAL STAT 04/04/2024 10:40 AM CDT RUQ pain Calculus of gallbladder without cholecystitis without obstruction HEPATIC FUNCTION PANEL STAT 04/04/2024 10:40 AM CDT RUQ pain Calculus of gallbladder without cholecystitis without obstruction CBC WITH AUTO DIFFERENTIAL STAT 04/04/2024 10:40 AM CDT RUQ pain Calculus of gallbladder without cholecystitis without obstruction SCAN-ULTRASOUND REPORT 01/16/2024 12:00 AM CDT HPV HIGH RISK Routine 03/27/2023 4:20 PM CDT HIV EXTERNAL Routine 08/14/2020 from Last 3 Months or Most Recently Relevant to Health Maintenance Results * (ABNORMAL) Bilirubin, total/direct AM (04/05/2024 9:59 AM CDT) BILIRUBIN,TOTA L 1.2 0.0 - 1.2 mg/dL 04/05/2024 10:38 AM CDT [facility] BILIRUBIN,DIRE CT 0.4(H) 0.0 - 0.2 mg/dL 04/05/2024 10:38 AM CDT [facility] BILIRUBIN,DEMETRIUS RECT 0.8 0.2 - 0.8 mg/dL 04/05/2024 10:38 AM CDT [facility] Blood BLOOD SPECIMEN / Unknown Butterfly / Unknown 04/05/2024 9:59 AM CDT 04/05/2024 10:07 AM CDT Jose Dias MD CHEMISTRY Performing Organization Address [facility] Co de Phone Number [facility] [address] [place] [address], * (ABNORMAL) ALT AM (04/05/2024 9:59 AM CDT) ALT (SGPT) 642(H) 10 - 35 IU/L 04/05/2024 10:38 AM CDT [facility] Blood BLOOD SPECIMEN / Unknown Butterfly / Unknown 04/05/2024 9:59 AM CDT 04/05/2024 10:07 AM CDT Jose Dias MD CHEMISTRY Performing Organization Address [facility] de Phone Number [facility] [address] [place] [address], * (ABNORMAL) AST AM (04/05/2024 9:59 AM CDT) AST (SGOT) 273(H) 10 - 35 IU/L 04/05/2024 10:38 AM CDT [facility] Blood BLOOD SPECIMEN / Unknown Butterfly / Unknown 04/05/2024 9:59 AM CDT 04/05/2024 10:07 AM CDT Jose Dias MD CHEMISTRY Performing Organization Address [facility] Co de Phone Number [facility] [address] [place] [address], * (ABNORMAL) Alk phosphatase AM (04/05/2024 8:13 AM CDT) ALK PHOSPHATASE 167(H) 35 - 104 IU/L 04/05/2024 8:51 AM CDT [facility] Blood BLOOD SPECIMEN / Unknown Venipuncture / Unknown 04/05/2024 8:13 AM CDT 04/05/2024 8:20 AM CDT Jose Dias MD CHEMISTRY [facility] [address] [place] [address], [place] * US ABDOMEN LIMITED RUQ PORTABLE (04/04/2024 7:58 PM CDT) Anatomical Region Laterality Modality Abdomen, LIVER, PANCREAS, GALLBLADDER, SPLEEN Ultrasound 04/04/2024 8:46 PM CDT Impressions 04/04/2024 8:46 PM CDT Cholelithiasis. No sonographic evidence of acute cholecystitis. Dictated by Demetrius Everett MD @ 04/04/2024 8:46:54 PM (Electronically Signed) Narrative 04/04/2024 8:46 PM CDT For Patients: ??As a result of the Cures Act, medical imaging exams and procedure reports are released immediately into your electronic medical record. ??You may view this report before your referring provider. ??If you have questions, please contact your health care provider. INDICATION: Right upper quadrant pain. TECHNIQUE: Ultrasound abdomen limited. ??Sonographic images of the right upper quadrant were obtained using breaux-scale and color Doppler images. COMPARISON: Right upper quadrant ultrasound dated 10/13/2020. FINDINGS: Liver: Echogenicity of the liver parenchyma is within normal limits. Bile ducts: Intrahepatic bile ducts are not dilated. The common bile duct measures 0.4 cm. Gallbladder: Multiple small gallstones, some of which appear adherent/nonmobile. No significant gallbladder wall thickening or pericholecystic fluid identified. Negative sonographic Lopez`s sign. Pancreas: Pancreas is poorly visualized secondary to acoustic shadowing from overlying/adjacent bowel gas. Right kidney: The right kidney measures 10.9 cm in length. No renal calculi or significant hydronephrosis is identified. ?? Procedure Note Demetrius Everett MD - 04/04/2024 For Patients: As a result of the Cures Act, medical imagingexams and procedure reports are released immediately into your electronicmedical record. You may view this report before your referring provider.If you have questions, please contact your health care provider. INDICATION: Right upper quadrant pain. TECHNIQUE: Ultrasound abdomen limited. Sonographic images of the right upperquadrant were obtained using breaux-scale and color Doppler images. COMPARISON: Right upper quadrant ultrasound dated 10/13/2020. FINDINGS: Liver: Echogenicity of the liver parenchyma is within normal limits. Bile ducts: Intrahepatic bile ducts are not dilated. The common bile ductmeasures 0.4 cm. Gallbladder: Multiple small gallstones, some of which appearadherent/nonmobile. No significant gallbladder wall thickening orpericholecystic fluid identified. Negative sonographic Lopez`s sign. Pancreas: Pancreas is poorly visualized secondary to acoustic shadowingfrom overlying/adjacent bowel gas. Right kidney: The right kidney measures 10.9 cm in length. No renalcalculi or significant hydronephrosis is identified. IMPRESSION: Cholelithiasis. No sonographic evidence of acute cholecystitis. Dictated by Demetrius Everett MD @ 04/04/2024 8:46:54 PM (Electronically Signed) Jose Miguel Ureña MD [place] * CBC WITH AUTO DIFFERENTIAL (04/04/2024 7:37 PM CDT) Only the most recent of2 resultswithin the time period is included. WHITE BLOOD COUNT 6.0 4.5 - 11.0 thou/cu mm 04/04/2024 7:55 PM CDT [facility] RED BLOOD COUNT 5.15 4.00 - 5.20 mil/cu mm 04/04/2024 7:55 PM CDT [facility] HEMOGLOBIN 14.6 12.0 - 16.0 g/dL 04/04/2024 7:55 PM CDT [facility] HEMATOCRIT 45.0 33.0 - 51.0 % 04/04/2024 7:55 PM CDT [facility] MCV 87 80 - 100 fL 04/04/2024 7:55 PM CDT [facility] MCH 28.3 26.0 - 34.0 pg 04/04/2024 7:55 PM CDT [facility] MCHC 32.4 32.0 - 36.0 g/dL 04/04/2024 7:55 PM CDT [facility] RDW 12.4 11.5 - 15.5 % 04/04/2024 7:55 PM CDT [facility] PLATELET COUNT 309 140 - 440 thou/cu mm 04/04/2024 7:55 PM CDT [facility] MPV 9.5 6.5 - 11.0 fL 04/04/2024 7:55 PM CDT [facility] NRBC 0.0 % 04/04/2024 7:55 PM CDT [facility] ABS NRBC 0.0 thou /cu mm 04/04/2024 7:55 PM CDT [facility] % NEUT 37.7 % 04/04/2024 7:55 PM CDT [facility] % LYMPH 44.1 % 04/04/2024 7:55 PM CDT [facility] % MONO 12.9 % 04/04/2024 7:55 PM CDT [facility] % EOS 3.8 % 04/04/2024 7:55 PM CDT [facility] % BASO 1.3 % 04/04/2024 7:55 PM CDT [facility] % IMMATURE GRAN (METAS,MYELOS,WY OS) 0.2 % 04/04/2024 7:55 PM CDT [facility] ABSOLUTE NEUTROPHILS 2.3 1.7 - 7.0 thou/cu mm 04/04/2024 7:55 PM CDT [facility] ABSOLUTE LYMPHOCYTES 2.7 0.9 - 2.9 thou/cu mm 04/04/2024 7:55 PM CDT [facility] ABSOLUTE MONOCYTES 0.8 <0.9 thou/cu mm 04/04/2024 7:55 PM CDT [facility] ABSOLUTE EOSINOPHILS 0.2 <0.5 thou/cu mm 04/04/2024 7:55 PM CDT [facility] ABSOLUTE BASOPHILS 0.1 <0.3 thou/cu mm 04/04/2024 7:55 PM CDT [facility] ABSOLUTE IMMATURE GRANULOCYTES(MET ,MYELOS,PROS) 0.0 <0.3 thou/cu mm 04/04/2024 7:55 PM CDT [facility] Blood BLOOD SPECIMEN / Unknown Butterfly / Unknown 04/04/2024 7:37 PM CDT 04/04/2024 7:47 PM CDT Jose Miguel Ureña MD HEMATOLOGY Performing Organization Address [facility] Co de Phone Number [facility] [address] [place] [address], [place] * PROTIME-INR (04/04/2024 7:37 PM CDT) INR 1.0 <1.3 04/04/2024 7:58 PM CDT [facility] PROTIME 11.9 10.6 - 12.4 sec 04/04/2024 7:58 PM CDT [facility] Blood BLOOD SPECIMEN / Unknown Butterfly / Unknown 04/04/2024 7:37 PM CDT 04/04/2024 7:47 PM CDT Narrative [facility] - 04/04/2024 7:58 PM CDT ?Therapeutic Range 2.0-3.0 for most anticoagulated patients 2.5-3.5 or 4.0 for high risk patients The INR is only used for patients on stable oral anticoagulant therapy. It makes no significant contribution to the diagnosis or treatment of patients whose Protime is prolonged for other reasons. INR results are increased when heparin levels exceed 1.0 U/mL, which corresponds to an aPTT >125 seconds if the patient is on UFH. Jose Miguel Ureña MD HEMATOLOGY Performing Organization Address [facility]/ZIP Co de Phone Number [facility] [address] [place] [address], [place] * LIPASE (04/04/2024 7:37 PM CDT) LIPASE 40.0 13.0 - 60.0 IU/L 04/04/2024 8:16 PM CDT [facility] Blood BLOOD SPECIMEN / Unknown Butterfly / Unknown 04/04/2024 7:37 PM CDT 04/04/2024 7:47 PM CDT Jose Miguel Ureña MD CHEMISTRY [facility] [address] [place] [address], * (ABNORMAL) HEPATIC FUNCTION PANEL (04/04/2024 7:37 PM CDT) Only the most recent of2 resultswithin the time period is included. ALBUMIN 4.9 4.0 - 4.9 g/dL 04/04/2024 8:35 PM CDT [facility] PROTEIN,TOTAL 8.0 6.0 - 8.0 g/dL 04/04/2024 8:35 PM CDT [facility] BILIRUBIN,TOTAL 1.2 0.0 - 1.2 mg/dL 04/04/2024 8:35 PM CDT [facility] BILIRUBIN,DIRECT 0.6(H) 0.0 - 0.2 mg/dL 04/04/2024 8:35 PM CDT [facility] BILIRUBIN,INDIRE CT 0.6 0.2 - 0.8 mg/dL 04/04/2024 8:35 PM CDT [facility] ALK PHOSPHATASE 195(H) 35 - 104 IU/L 04/04/2024 8:35 PM CDT [facility] ALT (SGPT) 915(H) 10 - 35 IU/L 04/04/2024 8:35 PM CDT [facility] AST (SGOT) 536(H) 10 - 35 IU/L 04/04/2024 8:35 PM CDT [facility] Blood BLOOD SPECIMEN / Unknown Butterfly / Unknown 04/04/2024 7:37 PM CDT 04/04/2024 7:47 PM CDT Jose Miguel Ureña MD CHEMISTRY [facility] [address] [place] [address], * BASIC METABOLIC PANEL (04/04/2024 7:37 PM CDT) SODIUM 141 136 - 145 mmol/L 04/04/2024 8:16 PM CDT [facility] POTASSIUM 4.0 3.5 - 5.1 mmol/L 04/04/2024 8:16 PM CDT [facility] CHLORIDE 106 98 - 107 mmol/L 04/04/2024 8:16 PM CDT [facility] CO2,TOTAL 23 22 - 29 mmol/L 04/04/2024 8:16 PM CDT [facility] ANION GAP 12 5 - 18 04/04/2024 8:16 PM CDT [facility] GLUCOSE 89 70 - 99 mg/dL 04/04/2024 8:16 PM CDT [facility] CALCIUM 9.5 8.6 - 10.0 mg/dL 04/04/2024 8:16 PM CDT [facility] BUN 12 6 - 20 mg/dL 04/04/2024 8:16 PM CDT [facility] CREATININE 0.74 0.50 - 0.90 mg/dL 04/04/2024 8:16 PM CDT [facility] BUN/CREAT RATIO 16 10 - 20 8:16 PM CDT [facility] eGFR >90 >90 mL/min/1.7 3m2 04/04/2024 8:16 PM CDT [facility] Comment:As of 2021, eG FR is calculated by the CKD-EPI creatinine equation without race adjustment. ??eGFR can be influenced by muscle mass, exercise, and diet. ??The reported eGFR is an estimation only and is only applicable if the renal function is stable. Blood BLOOD SPECIMEN / Unknown Butterfly / Unknown 04/04/2024 7:37 PM CDT 04/04/2024 7:47 PM CDT Jose Miguel Ureña MD CHEMISTRY [facility] [address] [place] [address], [place] * ACUTE HEPATITIS PANEL (04/04/2024 10:40 AM CDT) HEPATITIS C ANTIBODY Non-Reactive Non-Reactive 04/05/2024 12:46 PM CDT [facility] Comment:Please note, per www .CDC.gov: If a patient is known to be at high risk of HCV infection, or is symptomatic, and the physician's suspicion of HCV infection is high, HCV RNA testing is often employed and is of diagnostic value, even after an initial negative anti-HCV test result. IGM ANTI HAV Non-Reactive Non-Reactive 04/05/20 12:46 PM CDT [facility] Comment:Anti-HAV IgM non-kristal ctive. Does not exclude the possibility of exposure to/or infection with HAV. Level of anti-HAV IgM may be below the cut-off in early infection. HBSAG Nonreactive Nonreactive 04/05/2024 12:46 PM CDT [facility] IGM ANTI HBC Non-Reactive Non-Reactive 04/05/20 12:46 PM CDT [facility] Comment:Anti-HBc IgM not det ected. Does not exclude the possibility of exposure to or infection with HBV. Blood BLOOD SPECIMEN / Unknown [facility] / Unknown 04/04/2024 10:40 AM CDT 04/04/2024 10:40 AM CDT Narrative [facility] - 04/05/2024 12:46 PM CDT Biotin supplements may cause clinically significant interference for this test assay. ??If interference is suspected, it is strongly recommended that biotin is discontinued for at least one week prior to retesting. Jose Miguel Ureña MD SEND OUTS [facility] [address] [place] [id number], * SCAN-ULTRASOUND REPORT (01/16/2024 12:00 AM CDT) Anatomical Region Laterality Modality Other Scanner OTHER * HPV HIGH RISK (03/27/2023 4:20 PM CDT) TYPE 16 Negative Negative 03/31/2023 5:32 AM CDT [facility] TYPE 18 Negative Negative 03/31/2023 5:32 AM CDT [facility] OTHER HIGH RISK TYPES Negative Negative 03/31/2023 5:32 AM CDT [facility] Other (Cervical) 03/27/2023 4:20 PM CDT 03/29/2023 2:49 PM CDT Narrative [facility] - 03/31/2023 5:32 AM CDT HPV types 16, 18, 31, 33, 35, 39, 45, 51, 52, 56, 58, 59, 66 and 68 DNA were undetectable or below the pre-set threshold. Methodology: Bacilio Yvonne 4800 HPV Test Celena Mccabe MD MICROBIOLOGY Performing Organization Address [facility] Co de Phone Number [facility] [address] [place], [place] [id number], * HIV EXTERNAL (08/14/2020) EXTERNAL HIV Negative [facility] Blood BLOOD SPECIMEN / Unknown Tangela Tammy [facility] [address] [id number] from Last 3 Months or Most Recently Relevant to Health Maintenance Advance Directives * Full Code (Latest Code Status on File) Date Activated Date Inactivated Comments 04/04/2024 10:35 PM 04/05/2024 4:52 PM Question Answer Comments Code Status Discussion: Reviewed Preferences * Full Code Date Activated Date Inactivated [...] Comments Code Status Discussion: Discussed Care Teams Elevated Guard Relationship Specialty Start Date End Date Iris Rapp MD [address] [place] [address] PCP - General Obstetrics and Gynecology 01/28/21
--- OUTSIDE RECORDS SUMMARY | 2024-04-09 13:55 | XMS_ITS | Clinical Summary ---
Author Organization [facility] Address [address] [place] [id number] Care Team Providers Care Manhole Builder Name Role Phone No Ref-Primary, Physician Primary Care Provider Peg Oleary MD Unavailable [phone] Allergies No known active allergies Medications enoxaparin ANTICOAGULANT (LOVENOX) 40 MG/0.4ML syringe Inject 40 mg Subcutaneous daily Active aspirin 81 MG EC tablet Take 81 mg by mouth daily Active Vit-Fe Fumarate-FA (PNV PLUS MULTIVITAMIN) 27-1 MG TABS per tablet Take 1 tablet by mouth daily Active Active Problems Problem Noted Date Diagnosed Date Chronic hypertension 07/18/2023 History of deep venous thrombosis 07/18/2023 Social History Tobacco Use Types Packs/Day Years Used Date Smoking Tobacco: Never Assessed Tobacco Cessation:Counseling Given: Not Answered Adolescent Education Answer Date Record ed Getting School Help Needed Not on file 06/14 Comments No Sex and Gender Information Value Date Recorded Sex Assigned at Not on file Legal Sex Female 4:05 PM STEEL ANALYST Gender Identity Not on file Sexual Orientation Not on file Last Filed Vital Signs Vital Sign Reading Time Taken Comments Blood Pressure 119/82 07/18/2023 12:05 PM STEEL ANALYST Pulse 78 07/18/2023 12:05 PM STEEL ANALYST Temperature - - Respiratory Rate 18 07/18/2023 12:05 PM STEEL ANALYST Oxygen Saturation 99% 07/18/2023 12:05 PM STEEL ANALYST Inhaled Oxygen Concentration - - Weight 105.5 kg (232 lb 8 oz) 07/18/2023 12:05 P M STEEL ANALYST Height 180.3 cm (5' 11) 07/18/2023 12:05 PM STEEL ANALYST Body Mass Index 32.43 07/18/2023 12:05 PM STEEL ANALYST Plan of Treatment Health Maintenance Due Date Last Done Comments ADVANCE CARE PLANNING 1992 ANNUAL REVIEW OF HM ORDERS 1992 BMP 1992 YEARLY PREVENTIVE VISIT 1992 HIV SCREENING 10/07/2007 HEPATITIS C SCREENING 2010 PHQ-2 (once per calendar year) 2023 COVID-19 Vaccine ( season) 2024 INFLUENZA VACCINE (#1) 2024 07/27/2018 PAP 03/27/2026 03/27/2023, 03/27/2023 DTAP/TDAP/TD IMMUNIZATION (5 - Td or Tdap) 02/05/2032 02/04/2022, 01/08/2021, 05/04/2016, Additional history exists RSV VACCINE (1 - 1-dose 75+ series) 10/07/2067 HEPATITIS B IMMUNIZATION Completed 005, 10/21/2004, 09/17/2004 HPV IMMUNIZATION Completed 10/28/2016, 01/2017, 05/04/2016 MENINGITIS IMMUNIZATION Aged Out No l onger eligible based on patient's age to complete this topic Pneumococcal Vaccine: Pediatrics (0 to 5 Years) and At-Risk Patients (6 to 64 Years) Aged Out No longer eligible based on patient's age to complete this topic RSV MONOCLONAL ANTIBODY Aged Out No l onger eligible based on patient's age to complete this topic [facility] Care Teams Manhole Builder Relationship Specialty Start Date End Date No Ref-Primary, Physician PCP - General 06/15/23 Peg Oleary MD [address] [facility] [address] [place], [place] [phone] Assigned OBGYN Provider 08/04/23
--- OUTSIDE RECORDS SUMMARY | 2024-04-09 13:55 | XMS_ITS | Referral Summary ---
Author Organization [facility] Address [address] [place] [address] Care Team Providers Care Senior Data Modeler Name Role Phone No Ref-Primary, Physician Primary Care Provider Peg Oleary MD Unavailable [phone] Allergies No known active allergies Medications [...] on file Legal Sex Female 4:05 PM DEMOLITIONIST Gender Identity Not on file Sexual Orientation Not on file Last Filed Vital Signs Vital Sign Reading Time Taken Comments Blood Pressure 119/82 07/18/2023 12:05 PM DEMOLITIONIST Pulse 78 07/18/2023 12:05 PM DEMOLITIONIST Temperature - - Respiratory Rate 18 07/18/2023 12:05 PM DEMOLITIONIST Oxygen Saturation 99% 07/18/2023 12:05 PM DEMOLITIONIST Inhaled Oxygen Concentration - - Weight 105.5 kg (232 lb 8 oz) 07/18/2023 12:05 P M DEMOLITIONIST Height 180.3 cm (5' 11) 07/18/2023 12:05 PM DEMOLITIONIST Body Mass Index 32.43 07/18/2023 12:05 PM DEMOLITIONIST Plan of Treatment Not on file Insurance [facility] Care Teams Senior Data Modeler Relationship Specialty Start Date End Date No Ref-Primary, Physician PCP - General 06/15/23 Peg Oleary MD [address] [facility] [address] [place] [address] Assigned OBGYN Provider 08/04/23
== END 2024-04-09 13:51 | disposition home or self-care (01) ==
PROVIDERS: PCP Family Medicine; Visit Provider Family Medicine
DX: Z01.818 Encounter for other preprocedural examination (principal); K80.20 Calculus of gallbladder without cholecystitis without obstruction
CPT/HCPCS: 80053

== ENCOUNTER 2024-04-15 06:12 | Day surgery (SDC) | payer MEDICAID, SELFPAY ==
[2024-04-15] VITALS (15 sets, daily range): BP systolic 98–125; BP diastolic 47–89; PULSE 48–99; RESP 12–16; TEMP 36.6–37.1; O2SAT 94–100; BMI 28.4
--- OUTSIDE RECORDS SUMMARY | 2024-04-15 06:14 | XMS_ITS | Referral Summary ---
Author Organization [facility] Address [address] [place] [address] Care Team Providers Care Acquisition Lead Name Role Phone No Ref-Primary, Physician Primary Care Provider Peg Oleary MD Unavailable [phone] Allergies No known active allergies Medications [...] on file Legal Sex Female 4:05 PM CUSTODIAN ATHLETIC EQUIPMENT Gender Identity Not on file Sexual Orientation Not on file Last Filed Vital Signs Vital Sign Reading Time Taken Comments Blood Pressure 119/82 07/18/2023 12:05 PM CUSTODIAN ATHLETIC EQUIPMENT Pulse 78 07/18/2023 12:05 PM CUSTODIAN ATHLETIC EQUIPMENT Temperature - - Respiratory Rate 18 07/18/2023 12:05 PM CUSTODIAN ATHLETIC EQUIPMENT Oxygen Saturation 99% 07/18/2023 12:05 PM CUSTODIAN ATHLETIC EQUIPMENT Inhaled Oxygen Concentration - - Weight 105.5 kg (232 lb 8 oz) 07/18/2023 12:05 P M CUSTODIAN ATHLETIC EQUIPMENT Height 180.3 cm (5' 11) 07/18/2023 12:05 PM CUSTODIAN ATHLETIC EQUIPMENT Body Mass Index 32.43 07/18/2023 12:05 PM CUSTODIAN ATHLETIC EQUIPMENT Plan of Treatment Not on file Insurance [facility] Care Teams Acquisition Lead Relationship Specialty Start Date End Date No Ref-Primary, Physician PCP - General 06/15/23 Peg Oleary MD [address] [facility] [address] [place] [address] Assigned OBGYN Provider 08/04/23
--- OUTSIDE RECORDS SUMMARY | 2024-04-15 06:14 | XMS_ITS | Clinical Summary ---
Author Organization [facility] Address [address] [place] [address] Care Team Providers Care Stock Letterer Name Role Phone No Ref-Primary, Physician Primary Care Provider Peg Oleary MD Unavailable [phone] Allergies No known active allergies Medications [...] on file Legal Sex Female 4:05 PM PIANO REGULATOR Gender Identity Not on file Sexual Orientation Not on file Last Filed Vital Signs Vital Sign Reading Time Taken Comments Blood Pressure 119/82 07/18/2023 12:05 PM PIANO REGULATOR Pulse 78 07/18/2023 12:05 PM PIANO REGULATOR Temperature - - Respiratory Rate 18 07/18/2023 12:05 PM PIANO REGULATOR Oxygen Saturation 99% 07/18/2023 12:05 PM PIANO REGULATOR Inhaled Oxygen Concentration - - Weight 105.5 kg (232 lb 8 oz) 07/18/2023 12:05 P M PIANO REGULATOR Height 180.3 cm (5' 11) 07/18/2023 12:05 PM PIANO REGULATOR Body Mass Index 32.43 07/18/2023 12:05 PM PIANO REGULATOR Plan of Treatment Health Maintenance Due Date [...] patient's age to complete this topic [facility] Care Teams Stock Letterer Relationship Specialty Start Date End Date No Ref-Primary, Physician PCP - General 06/15/23 Peg Oleary MD [address] [facility] [address] [place], [place] [id number] Assigned OBGYN Provider 08/04/23
--- OUTSIDE RECORDS SUMMARY | 2024-04-15 06:15 | XMS_ITS | Clinical Summary ---
Author Organization [facility] Address [place], [place] [address] Care Team Providers Care Auto Damage Appraiser Name Role Phone Iris Rapp MD Primary Care Provider [phone] Allergies No known active allergies Medications Medication [...] 04/04/2024 History of deep venous thrombosis 07/18/2023 [facility] Supervision of high-risk Overview (10/07/2021): [facility] CONSULTATION ON October 11, 2021 --Virtual Visit [facility] pt was previous [facility] pt in 2020 CONSULT VISIT ALERT: [...] 04/12/22 REFERRING PHYSICIAN/PHONE/LAST UPDATE: Dr. Lizzeth Stovall, [place] [phone] Primary MD approves scheduling of recommended ultrasounds/testing: [...] , antepartum, third trimester 01/29/2021 0 02/28/2021 [facility] Supervision of high risk 01/28/2021 2021 Overview (03/01/2021): [facility] CONSULTATION ON 01/28/21 --LUIS to [facility] on 02/01/21 (34w1d) NEXT VISIT ALERTS: [...] delivery: 02/28/21 Induction - Preferred delivery location: [place] Patient is on Therapeutic Lovenox. Refer to [facility] Anticoagulation Doc Flow Sheet every visit Routine Labs: Platelet count: 02/01/21 378,000 Monthly: Due done 02/01/21-03/04/21 Lovenox Levels (for therapeutic dosing only): Due ~ 02/01/21=1.09 (No more lovenox levels during per Dr. Ureña unless dosing changes. ) Next draw: PRIMARY DIAGNOSIS: 30 y.o. Estimated Date of Delivery: 03/14/21 Large occlusive DVT, left femoral vein, dx at [place] [facility] (01/21/21) - 01/22/21 admitted to [facility] for evaluation and management of worsening pain with a known left femoral DVT - 01/23/21 left AMA prior to evaluation by cyber ops planner ANUEL --checking home BP Has been evaluated a few times for PIH BMI = 30.5 LAST GROWTH: 02/11/21 L2 35w4d EFW 2369 grams, percentile: 20% 10/23/20 anatomy screen, EIF REFERRING PHYSICIAN/PHONE/LAST UPDATE: Janie Pepe MD, [place], Primary MD approves scheduling of recommended ultrasounds/testing: Yes SPECIALISTS/CONSULTS: Include: Specialty MD Clinic Name Phone# EG NV and ADDED TO PATIENT CARE TEAM Yes CARE COORDINATION: GENETICS: Low risk NIPS PROCEDURES: PERTINENT MEDS: lovenox 100 mg BID Oxycodone Tylenol, PNV ORTIZ signed for [facility]: MATERNAL CARE COORDINATION: CARE COORDINATION: RADIOLOGICAL TECHNICIAN: ROUTINE OB: COVID-19 vaccine: Date(s) given: declined [...] days of scheduled delivery @ a main [facility] site H&P needed 30 days before delivery Date: PPTL: Yes No Is Medical assistance? Yes PPTL Permit signed: Date: Scanned date: CHECKLIST FOR SCHEDULING PROCEDURES: Call [phone] for [employer] and [phone] for [employer] Procedure: Induction Hospital: [place] Unit: L&D Date & Time of procedure: 02/28/21 730 PM Feliciano Score if induction: Pertinent information: DVT left leg, therapeutic lovenox Gestational age on procedure date? 40 MD doing procedure: [facility] LB Date scheduled: 02/19/2021 when patient was 36w5d. Scheduling MD & RN: KASSANDRA/JENNIFER Notifications: Hospitalist Delivery-OBH collection teller notified through [employer] inbox? Yes [facility] MD collection teller notified via [employer] inbox? Yes Primary MD notified via [employer] inbox? Yes Primary MD clinic called if not Jan? Not Applicable On [facility] calendar? Yes Care Coordination notified? Yes H&P/PPTL: PPTL permit signed? No H&P and Plan in chart? Yes [facility] appointment made for H&P with [employer] within 30 days of procedure? Yes 02/01/21 Date: Regardless of vaccination status, all procedures require a COVID-19 test . Patients should be scheduled for a COVID-19 test within 3-5 days prior to the scheduled procedure to be done in main [facility] Clinic 02/26/21Date: * Patient notification: Patient notified of procedure date? Yes Written admission instructions given to patient via AVS? No PLAN OF CARE: per consult note on 01/29/21: care: ?? LUIS recommended:Yes ??Recommendations for Delivery: ?? Hospital Location:[facility] [place] ?? Timin wks gestation ?? Mode:IOL at 38 wks weeks - scheduled No ?? Provider: [facility] ?? Special considerations ? Discontinue Lovenox 24 hours prior to IOL or at the onset of contractions DVT complicating , third trimester 01/22/2021 02/28/2021 related leg pain i n third trimester, antepartum 01/22/2021 02/28/2021 Overview (01/22/2021): transfer from [place] 32w 5d gestation of 01/22/2021 01/29/2021 Anxiety 11/01/2012 01/29/2021 Encounters Date Type Department Care Team Description 04/04/2024 7:25 PM CDT - 04/05/2024 2:00 PM CDT Hospital Encounter [facility] [address] [place] [address] Jose Miguel Ureña MD [facility], [facility] [place], MD Renny Franco Megan Maureen, DO Stor[place], Tigre Chapman MD RUQ pain (Primary Dx); Elevated LFTs; Calculus of gallbladder with biliary obstruction but without cholecystitis Discharge Disposition: Home Self Care 04/04/2024 10:00 AM CDT Office Visit [facility] [address] [place] [address] Juliocesar Plaza MD Consult (Heartburn started in - severe abdominal pain that radiates to back) 04/04/2024 Travel 01/16/2024 Orders Only [facility] Scanner 1 scan: (1-Ord) [facility], [facility], 01/16/2024 from Last 3 Months Family [...] bor (< 3 hours) Delivery Location:Hospital ( [address] L&D TRIAGE) Comments:DVT at 32 wee [...] - 1.2 mg/dL 04/05/2024 10:38 AM CDT [facility] BILIRUBIN,DIRE CT 0.4(H) 0.0 - 0.2 mg/dL 04/05/2024 10:38 AM CDT [facility] BILIRUBIN,DEMETRIUS RECT 0.8 0.2 - 0.8 mg/dL 04/05/2024 10:38 AM CDT [facility] Blood BLOOD SPECIMEN / Unknown Butterfly / Unknown 04/05/2024 9:59 AM CDT 04/05/2024 10:07 AM CDT Jose Dias MD CHEMISTRY Performing Organization Address [facility] Co de Phone Number [facility] [address] [place] [address], * (ABNORMAL) ALT AM (04/05/2024 9:59 AM CDT) ALT (SGPT) 642(H) 10 - 35 IU/L 04/05/2024 10:38 AM CDT [facility] Blood BLOOD SPECIMEN / Unknown Butterfly / Unknown 04/05/2024 9:59 AM CDT 04/05/2024 10:07 AM CDT Jose Dias MD CHEMISTRY Performing Organization Address [facility] de Phone Number [facility] [address] [place] [address], * (ABNORMAL) AST AM (04/05/2024 9:59 AM CDT) AST (SGOT) 273(H) 10 - 35 IU/L 04/05/2024 10:38 AM CDT [facility] Blood BLOOD SPECIMEN / Unknown Butterfly / Unknown 04/05/2024 9:59 AM CDT 04/05/2024 10:07 AM CDT Jose Dias MD CHEMISTRY Performing Organization Address [facility] Co de Phone Number [facility] [address] [place] [address], * (ABNORMAL) Alk phosphatase AM (04/05/2024 8:13 AM CDT) ALK PHOSPHATASE 167(H) 35 - 104 IU/L 04/05/2024 8:51 AM CDT [facility] Blood BLOOD SPECIMEN / Unknown Venipuncture / Unknown 04/05/2024 8:13 AM CDT 04/05/2024 8:20 AM CDT Jose Dias MD CHEMISTRY [facility] [address] [place] [address], [place] * [place] ABDOMEN LIMITED RUQ PORTABLE [...] 11.0 thou/cu mm 04/04/2024 7:55 PM CDT [facility] RED BLOOD COUNT 5.15 4.00 - 5.20 mil/cu mm 04/04/2024 7:55 PM CDT [facility] HEMOGLOBIN 14.6 12.0 - 16.0 g/dL 04/04/2024 7:55 PM CDT [facility] HEMATOCRIT 45.0 33.0 - 51.0 % 04/04/2024 7:55 PM CDT [facility] MCV 87 80 - 100 fL 04/04/2024 7:55 PM CDT [facility] MCH 28.3 26.0 - 34.0 pg 04/04/2024 7:55 PM CDT [facility] MCHC 32.4 32.0 - 36.0 g/dL 04/04/2024 7:55 PM CDT [facility] RDW 12.4 11.5 - 15.5 % 04/04/2024 7:55 PM CDT [facility] PLATELET COUNT 309 140 - 440 thou/cu mm 04/04/2024 7:55 PM CDT [facility] MPV 9.5 6.5 - 11.0 fL 04/04/2024 7:55 PM CDT [facility] NRBC 0.0 % 04/04/2024 7:55 PM CDT [facility] ABS NRBC 0.0 thou /cu mm 04/04/2024 7:55 PM CDT [facility] % NEUT 37.7 % 04/04/2024 7:55 PM CDT [facility] % LYMPH 44.1 % 04/04/2024 7:55 PM CDT [facility] % MONO 12.9 % 04/04/2024 7:55 PM CDT [facility] % EOS 3.8 % 04/04/2024 7:55 PM CDT [facility] % BASO 1.3 % 04/04/2024 7:55 PM CDT [facility] % IMMATURE GRAN (METAS,MYELOS,KY OS) 0.2 % 04/04/2024 7:55 PM CDT [facility] ABSOLUTE NEUTROPHILS 2.3 1.7 - 7.0 thou/cu mm 04/04/2024 7:55 PM CDT [facility] ABSOLUTE LYMPHOCYTES 2.7 0.9 - 2.9 thou/cu mm 04/04/2024 7:55 PM CDT [facility] ABSOLUTE MONOCYTES 0.8 <0.9 thou/cu mm 04/04/2024 7:55 PM CDT [facility] ABSOLUTE EOSINOPHILS 0.2 <0.5 thou/cu mm 04/04/2024 7:55 PM CDT [facility] ABSOLUTE BASOPHILS 0.1 <0.3 thou/cu mm 04/04/2024 7:55 PM CDT [facility] ABSOLUTE IMMATURE GRANULOCYTES(MET ,MYELOS,PROS) 0.0 <0.3 thou/cu mm 04/04/2024 7:55 PM CDT [facility] Blood BLOOD SPECIMEN / Unknown Butterfly / Unknown 04/04/2024 7:37 PM CDT 04/04/2024 7:47 PM CDT Jose Miguel Ureña MD HEMATOLOGY Performing Organization Address [facility] Co de Phone Number [facility] [address] [place] [id number], [place] * PROTIME-INR (04/04/2024 7:37 PM CDT) INR 1.0 <1.3 04/04/2024 7:58 PM CDT [facility] PROTIME 11.9 10.6 - 12.4 sec 04/04/2024 7:58 PM CDT [facility] Blood BLOOD SPECIMEN / Unknown Butterfly / Unknown 04/04/2024 7:37 PM CDT 04/04/2024 7:47 PM CDT Narrative [facility] - 04/04/2024 7:58 PM CDT [...] Miguel Ureña MD HEMATOLOGY Performing Organization Address City/[facility]/ZIP Co de Phone Number [facility] [address] [place] [phone], [place] * LIPASE (04/04/2024 7:37 PM CDT) LIPASE 40.0 13.0 - 60.0 IU/L 04/04/2024 8:16 PM CDT [facility] Blood BLOOD SPECIMEN / Unknown Butterfly / Unknown 04/04/2024 7:37 PM CDT 04/04/2024 7:47 PM CDT Jose Miguel Ureña MD CHEMISTRY [facility] [address] [place] [address], * (ABNORMAL) HEPATIC FUNCTION PANEL (04/04/2024 7:37 PM CDT) Only the most recent of2 resultswithin the time period is included. ALBUMIN 4.9 4.0 - 4.9 g/dL 04/04/2024 8:35 PM CDT [facility] PROTEIN,TOTAL 8.0 6.0 - 8.0 g/dL 04/04/2024 8:35 PM CDT [facility] BILIRUBIN,TOTAL 1.2 0.0 - 1.2 mg/dL 04/04/2024 8:35 PM CDT [facility] BILIRUBIN,DIRECT 0.6(H) 0.0 - 0.2 mg/dL 04/04/2024 8:35 PM CDT [facility] BILIRUBIN,INDIRE CT 0.6 0.2 - 0.8 mg/dL 04/04/2024 8:35 PM CDT [facility] ALK PHOSPHATASE 195(H) 35 - 104 IU/L 04/04/2024 8:35 PM CDT [facility] ALT (SGPT) 915(H) 10 - 35 IU/L 04/04/2024 8:35 PM CDT [facility] AST (SGOT) 536(H) 10 - 35 IU/L 04/04/2024 8:35 PM CDT [facility] Blood BLOOD SPECIMEN / Unknown Butterfly / Unknown 04/04/2024 7:37 PM CDT 04/04/2024 7:47 PM CDT Jose Miguel Ureña MD CHEMISTRY [facility] [address] [place] [address], * BASIC METABOLIC PANEL (04/04/2024 7:37 PM CDT) SODIUM 141 136 - 145 mmol/L 04/04/2024 8:16 PM CDT [facility] POTASSIUM 4.0 3.5 - 5.1 mmol/L 04/04/2024 8:16 PM CDT [facility] CHLORIDE 106 98 - 107 mmol/L 04/04/2024 8:16 PM CDT [facility] CO2,TOTAL 23 22 - 29 mmol/L 04/04/2024 8:16 PM CDT [facility] ANION GAP 12 5 - 18 04/04/2024 8:16 PM CDT [facility] GLUCOSE 89 70 - 99 mg/dL 04/04/2024 8:16 PM CDT [facility] CALCIUM 9.5 8.6 - 10.0 mg/dL 04/04/2024 8:16 PM CDT [facility] BUN 12 6 - 20 mg/dL 04/04/2024 8:16 PM CDT [facility] CREATININE 0.74 0.50 - 0.90 mg/dL 04/04/2024 8:16 PM CDT [facility] BUN/CREAT RATIO 16 10 - 20 8:16 PM CDT [facility] eGFR >90 >90 mL/min/1.7 3m2 04/04/2024 8:16 PM CDT [facility] Comment:As of 2021, eG FR [...] PM CDT Jose Miguel Ureña MD CHEMISTRY [facility] [address] [place] [address], [place] * ACUTE HEPATITIS PANEL (04/04/2024 10:40 AM CDT) HEPATITIS C ANTIBODY Non-Reactive Non-Reactive 04/05/2024 12:46 PM CDT [facility] Comment:Please note, per www .CDC.gov: If a patient is known to be at high risk of HCV infection, or is symptomatic, and the physician's suspicion of HCV infection is high, HCV RNA testing is often employed and is of diagnostic value, even after an initial negative anti-HCV test result. IGM ANTI HAV Non-Reactive Non-Reactive 04/05/20 12:46 PM CDT [facility] Comment:Anti-HAV IgM non-kristal ctive. Does not exclude the possibility of exposure to/or infection with HAV. Level of anti-HAV IgM may be below the cut-off in early infection. HBSAG Nonreactive Nonreactive 04/05/2024 12:46 PM CDT [facility] IGM ANTI HBC Non-Reactive Non-Reactive 04/05/20 12:46 PM CDT [facility] Comment:Anti-HBc IgM not det ected. Does not exclude the possibility of exposure to or infection with HBV. Blood BLOOD SPECIMEN / Unknown [facility] / Unknown 04/04/2024 10:40 AM CDT 04/04/2024 10:40 AM CDT Narrative [facility] - 04/05/2024 12:46 PM CDT Biotin supplements may cause clinically significant interference for this test assay. ??If interference is suspected, it is strongly recommended that biotin is discontinued for at least one week prior to retesting. Jose Miguel Ureña MD SEND OUTS [facility] [address] [place] [id number], * SCAN-ULTRASOUND REPORT (01/16/2024 12:00 AM CDT) Anatomical Region Laterality Modality Other Scanner OTHER * HPV HIGH RISK (03/27/2023 4:20 PM CDT) TYPE 16 Negative Negative 03/31/2023 5:32 AM CDT [facility] TYPE 18 Negative Negative 03/31/2023 5:32 AM CDT [facility] OTHER HIGH RISK TYPES Negative Negative 03/31/2023 5:32 AM CDT [facility] Other (Cervical) 03/27/2023 4:20 PM CDT 03/29/2023 2:49 PM CDT Narrative [facility] - 03/31/2023 5:32 AM CDT HPV types 16, 18, 31, 33, 35, 39, 45, 51, 52, 56, 58, 59, 66 and 68 DNA were undetectable or below the pre-set threshold. Methodology: Bacilio Yvonne 4800 HPV Test Celena Mccabe MD MICROBIOLOGY Performing Organization Address [facility] Co de Phone Number [facility] [address] [place], [place] [id number], * HIV EXTERNAL (08/14/2020) EXTERNAL HIV Negative [facility] Blood BLOOD SPECIMEN / Unknown Tangela Tammy [facility] [place] [address] [address] from Last 3 Months or Most Recently [...] Code Status Discussion: Discussed Care Teams Auto Damage Appraiser Relationship Specialty Start Date End Date Iris Rapp MD [address] [place] [address] PCP - General Obstetrics and Gynecology 01/28/21
[2024-04-15 06:31] LABS: Ur HCG Qualitative* Negative (Negative)
[2024-04-15] MEDS: SODIUM CHLORIDE 0.9 % (FLUSH) 10 ML SYRINGE IVF (06:45)
--- NOTE | 2024-04-15 07:30 | CRLHL7_ITS ---
For Patients: As a result of the Century Cures Act, medical imaging exams and procedure reports are released immediately into your electronic medical record. You may view this report before your referring provider. If you have questions, please contact your health care provider. INDICATION: Laparoscopic cholecystectomy. TECHNIQUE: Fluoroscopically guided intraoperative cholangiogram. Three portable spot intraoperative images were obtained. FINDINGS: Three portable spot intraoperative images were obtained. 106.6 seconds of fluoroscopy time utilized intraoperatively. Surgically absent gallbladder. Filling defects within the extrahepatic common bile duct could reflect air bubbles or less likely stones. No extravasation of contrast. Contrast is identified within the duodenum. IMPRESSION: 106.6 seconds fluoroscopy time utilized intraoperatively. Dictated by Ari Melara MD @ 04/15/2024 1:05:33 PM (Electronically Signed)
--- NOTE | 2024-04-15 08:05 | W.PM.H&PU ---
History & Physical Update History & Physical Update H&P Reviewed and patient assessed: The following changes are noted below H&P Updates: The patient is a 33-year-old female who presents today for cholecystectomy. She previously saw my partner Dr. Batista in clinic in January for symptomatic cholelithiasis. That time she had been having epigastric pain which developed last August during her . She had decreased the amount of fatty foods in her diet which helped her symptoms. At that time she was found to have cholelithiasis with a normal common bile duct and normal LFTs. On 1023 she was seen by GI with abdominal pain. She was found to have elevated LFTs with a total bilirubin of 2.3. She did present then to the [facility] ER and was admitted there for concern for choledocholithiasis. Her labs at that time were: Total bilirubin of 2.3, direct bilirubin 1.2. AST 900, ALT 1065, alkaline phosphatase 220. The following day her LFTs were checked and her total bilirubin was 1.2, direct bilirubin was 0.4, AST 642, ALT 273 and alkaline phosphatase was 167. Plans were made for her to undergo cholecystectomy, however because of timing she elected to discharge home with outpatient follow-up. She called our clinic to be scheduled for cholecystectomy. This was the 1st available appointment. He did have LFTs checked as part of her preop last week. Bilirubin and alkaline phosphatase were normal, however her AST was 39 and her ALT was 182. She did receive Versed prior to me being able to talk to her, however I did discuss with the patient and her father who provided consent via telephone that the plan will be cholecystectomy and intraoperative cholangiogram given her elevated liver function tests. If she has any common bile duct stone then I would make plans for her to have likely an outpatient ERCP. We discussed the risks of surgery including bleeding, infection, need for larger incision, and rare risk of injury to other structures in the abdomen. Again the patient and her father agreed to proceed.
[2024-04-15] MEDS: 0.9 % SODIUM CHLORIDE 500 ML 500 ML IV (08:22)
[2024-04-15] MEDS: CEFAZOLIN 2 GM INJ IVP (08:30)
[2024-04-15] MEDS: BUPIVACAINE 0.25% 30 ML INJECTION (08:48)
[2024-04-15] MEDS: 0.9% SODIUM CHL 50 ML VIAL INJECTION (08:48)
[2024-04-15] MEDS: iopamidoL 50 ML VIAL INJECTION (08:48)
[2024-04-15] MEDS: 0.9 % SODIUM CHL 20 ml vial INJECTION (08:48)
[2024-04-15] MEDS: LACTATED RINGERS 1000 ML 1,000 ML 100 ML IV (09:02)
--- NOTE | 2024-04-15 09:52 | W.ANESCHARGE ---
Anesthesia Charges Start Date/Time Anesthesia Start Date: 04/15/24 Anesthesia Start Time: 08:22 Stop Date/Time Anesthesia Stop Date: 04/15/24 Anesthesia Stop Time: 09:47
--- NOTE | 2024-04-15 10:00 | W.ANESCHARGE ---
Anesthesia Charges Start Date/Time Anesthesia Start Date: 04/15/24 Anesthesia Start Time: 08:22 Stop Date/Time Anesthesia Stop Date: 04/15/24 Anesthesia Stop Time: 09:47
--- NOTE | 2024-04-15 10:06 | P.GSOP_ITS ---
Operative Note Date of procedure: 04/15/24 Pre-op diagnosis: 1. cholelithiasis 2. elevated liver enzymes Post-op diagnosis: 1. cholelithiasis 2. elevated liver enzymes 3. possible choledocholithiasis Type of Procedure: 1. Laparoscopic cholecystectomy 2. Intraoperative cholangiogram Indications: The patient is a 33-year-old female who developed epigastric pain after eating during her earlier this year. After delivery she continued to have symptoms and she saw my colleague. At the time she was found to have gallstones and a normal common bile duct with normal liver function tests. Surgery was discussed however the patient wished to postpone. approximately a week and half ago she developed severe pain. She saw gastroenterology and liver tests were obtained which showed an elevated total bilirubin as well as direct bilirubin, transaminases and alkaline phosphatase. She was admitted at an outside facility because of concern for choledocholithiasis. Repeat labs the following day showed improvement in bilirubin. Plans were made for cholecystectomy, however she elected to discharge home as her pain was improved. She called clinic to schedule cholecystectomy and presents today for this. I recommended intraoperative cholangiogram given persistently elevated transaminases. Procedure Description: After discussing the risks and benefits of the procedure, the patient's father gave phone consent.? The operative site was marked and the patient was brought to the operating room and placed on the operating table in supine position.? Care was taken to pad the patient's pressure points.?? The patient was then intubated by anesthesia.?? The operative site was then prepped and draped in the usual sterile fashion.? A time-out was then performed. Entrance to the abdomen was gained via a 5 mm Visiport in the left upper quadrant. The abdomen was insufflated and briefly surveyed for signs of injury. There was none. A 10 mm umbilical port was placed as well as 2 working ports along the right costal margin, all under direct vision. The patient was then gamal edmond in reverse Trendelenburg position with the right side up. The gallbladder fundus was grasped and retracted cephalad. The infundibulum was grasped. A combination of hook cautery and blunt dissection was used to carefully dissect out the cystic duct and artery until they could clearly be seen entering the gallbladder without any intervening structures. The gallbladder was dissected off the cystic plate to achieve the critical view. Once this was achieved the cystic artery was clipped with 2 clips proximally and 1 clip distally and transected with the scissors. The cystic duct was clipped proximally. A ductotomy was then created. The cystic duct was noted to be mildly dilated. There was an impacted stone just below my ductotomy. I was able to milk this out through the opening and remove it from the abdomen. A cholangiocatheter was then advanced into the abdomen and cystic duct. A saline leak test was performed. This was negative. fluoroscopy was then brought into the field. Contrast was injected. There was brisk filling of the right and left hepatic ducts, however the common bile duct appeared to have multiple filling defects. The cholangiocatheter had been flushed prior to the procedure. However, the number of filling defects was quite significant when comparing the patient's mildly elevated transaminases. I was concerned that perhaps a filling defects could represent air bubbles as there was filling of the duodenum suggesting the duct was not completely obstructed. The cholangiocatheter was removed and the bile out to spill from the cystic duct. It did appear as though there may have been air bubbles emerging from the cystic duct. The catheter was flushed again to confirm no bubbles in the system. The cholangiocatheter was again advanced. Again there was filling of the right left hepatic ducts and the common bile duct. There still did appear to be possibly a filling defect in the midportion. The bile flowed easily into the duodenum. I performed a cholangiogram a 3rd time and again there appeared to be at least 1 filling defect in the midportion of duct, with again filling of the duodenum. At this point to confirm choled ocholithiasis I elected to plan for MRCP postoperatively. The cholangiocatheter was removed and the cystic duct was clipped with 2 clips distally. The gallbladder was then removed off the liver bed using cautery. It was removed from the abdomen using an Endo-Catch bag. The gallbladder bed was surveyed for hemostasis which appeared adequate. A small amount of bile which had spilled was suctioned from the abdomen. The umbilical port fascia was closed with 0 Vicryl. The remaining ports were then removed and the abdomen desufflated. The skin was closed with absorbable subcuticular suture. Sterile dressings were then applied. Instrument sponge and needle counts were correct at the end of the case. The patient was then woken and transferred to the PACU in stable condition. ? The patient tolerated the procedure well. Findings: 1. Gallstones impacting the cystic duct. 2. Filling defects noted on cholangiogram. Concerning for possible air bubbles as they did seem to dissipate when cholangiogram was repeated. Anesthesia: GETA Surgeon: Kareen Barragan MD Estimated blood loss (mL): 10 Specimen: Gallbladder Condition: stable Disposition: PACU
[2024-04-15] MEDS: HYDROCODONE-ACETAMIN 5-325 MG 1 TAB PO (11:59)
== END 2024-04-15 12:28 | disposition home or self-care (01) ==
PROVIDERS: Anesthesiology; PCP Family Medicine; Visit Provider Surgery
PROC: 0FT44ZZ Resection of Gallbladder, Percutaneous Endoscopic Approach (ICD-10-PCS; CPT 47563; principal; 2024-04-15 07:30)
DX: K80.10 Calculus of gallbladder with chronic cholecystitis without obstruction (principal); R10.13 Epigastric pain; R74.8 Abnormal levels of other serum enzymes
CPT/HCPCS: 47563; 00790; 74300; 81025; 88304; A9270; J0330; J0665; J0690; J1100; J1630; J2250; J2405; J2704; J2710; J3010; J7030; J7120; Q9967

== ENCOUNTER 2024-04-16 10:47 | Outpatient (CLI) | payer MEDICAID, SELFPAY ==
--- NOTE | 2024-04-16 10:45 | CRLHL7_ITS ---
For Patients: As a result of the Century Cures Act, medical imaging exams and procedure reports are released immediately into your electronic medical record. You may view this report before your referring provider. If you have questions, please contact your health care provider. INDICATION: Status post cholecystectomy yesterday, with possible retained stones TECHNIQUE: 1.5 T MRI of the abdomen was performed T2 weighted imaging; in and out of phase imaging MRCP. No intravenous contrast was administered COMPARISON: Intraoperative cholangiogram 04/15/2024 FINDINGS: Lungs: The lung bases are clear. No pleural or pericardial effusion. Liver: Homogeneous liver parenchyma. There is signal dropout of the hepatic parenchyma on out of phase imaging. No evidence of hepatic masses. Scattered subcentimeter T2 hyperintensities too small to accurately characterize, but may represent benign cysts or small hemangiomas. Biliary tree and gallbladder: No intra or extrahepatic biliary dilation. No evidence of filling defect in the common bile duct to suggest retained stones. Prior cholecystectomy Spleen: Unremarkable Pancreas: Normal pancreatic parenchyma. No pancreatic masses. No pancreatic duct dilation. Adrenal glands: Unremarkable. Kidneys and ureters: No renal masses or hydronephrosis. GI tract: No evidence of obstruction or inflammation. Vasculature: The IVC and aorta are normal caliber. Lymph nodes: No lymphadenopathy. Abdominal wall: Unremarkable Bones: Bone marrow signal is within normal limits. IMPRESSION: 1. Prior cholecystectomy without intra or extrahepatic biliary dilation. No filling defects within the common bile duct to suggest retained stones. 2. Hepatic steatosis. Dictated by Alisa Kearns MD @ 04/16/2024 12:30:47 PM (Electronically Signed)
--- OUTSIDE RECORDS SUMMARY | 2024-04-16 10:53 | XMS_ITS | Clinical Summary ---
Author Organization [facility] Address [address] [place] [id number] Care Team Providers Care Machine Operator Assistant Name Role Phone No Ref-Primary, Physician Primary Care Provider Peg Oleary MD Unavailable [phone] Allergies No known active allergies Medications [...] on file Legal Sex Female 4:05 PM [employer] Gender Identity Not on file Sexual Orientation Not on file Last Filed Vital Signs Vital Sign Reading Time Taken Comments Blood Pressure 119/82 07/18/2023 12:05 PM [employer] Pulse 78 07/18/2023 12:05 PM [employer] Temperature - - Respiratory Rate 18 07/18/2023 12:05 PM [employer] Oxygen Saturation 99% 07/18/2023 12:05 PM [employer] Inhaled Oxygen Concentration - - Weight 105.5 kg (232 lb 8 oz) 07/18/2023 12:05 P M [employer] Height 180.3 cm (5' 11) 07/18/2023 12:05 PM [employer] Body Mass Index 32.43 07/18/2023 12:05 PM [employer] Plan of Treatment Health Maintenance Due Date [...] patient's age to complete this topic Insurance [facility] Care Teams Machine Operator Assistant Relationship Specialty Start Date End Date No Ref-Primary, Physician PCP - General 06/15/23 Peg Oleary MD [address] [facility] [address] [place], [place] [id number] Assigned OBGYN Provider 08/04/23
--- OUTSIDE RECORDS SUMMARY | 2024-04-16 10:53 | XMS_ITS | Clinical Summary ---
Author Organization [facility] Address [place], [place] [address] Care Team Providers Care Engraver Block Name Role Phone Iris Rapp MD Primary Care Provider [phone] Allergies No known active allergies Medications Medication [...] 04/04/2024 History of deep venous thrombosis 07/18/2023 [facility] Supervision of high-risk Overview (10/07/2021): [facility] CONSULTATION ON October 11, 2021 --Virtual Visit [facility] pt was previous [facility] pt in 2020 CONSULT VISIT [...] 04/12/22 REFERRING PHYSICIAN/PHONE/LAST UPDATE: Dr. Lizzeth Stovall, [facility] [phone] Primary MD approves scheduling of recommended ultrasounds/testing: [...] , antepartum, third trimester 01/29/2021 0 02/28/2021 [facility] Supervision of high risk 01/28/2021 2021 Overview (03/01/2021): [facility] CONSULTATION ON 01/28/21 --LUIS to [facility] on 02/01/21 (34w1d) NEXT VISIT [...] delivery: 02/28/21 Induction - Preferred delivery location: [facility] Patient is on Therapeutic Lovenox. Refer to [facility] Anticoagulation Doc Flow Sheet every visit Routine Labs: Platelet count: 02/01/21 378,000 Monthly: Due done 02/01/21-03/04/21 Lovenox Levels (for therapeutic dosing only): Due ~ 02/01/21=1.09 (No more lovenox levels during per Dr. Ureña unless dosing changes. ) Next draw: PRIMARY DIAGNOSIS: 30 y.o. Estimated Date of Delivery: 03/14/21 Large occlusive DVT, left femoral vein, dx at [facility] (01/21/21) - 01/22/21 admitted to [facility] for evaluation and management of worsening pain with a known left femoral DVT - 01/23/21 left AMA prior to evaluation by integration consultant ANUEL --checking home BP Has been evaluated a few times for PIH BMI = 30.5 LAST GROWTH: 02/11/21 L2 35w4d EFW 2369 grams, percentile: 20% 10/23/20 anatomy screen, EIF REFERRING PHYSICIAN/PHONE/LAST UPDATE: Janie Pepe MD, [facility], Primary MD approves scheduling of recommended ultrasounds/testing: Yes SPECIALISTS/CONSULTS: Include: Specialty MD Clinic Name Phone# OV NV and ADDED TO PATIENT CARE TEAM Yes CARE COORDINATION: GENETICS: Low risk NIPS PROCEDURES: PERTINENT MEDS: lovenox 100 mg BID Oxycodone Tylenol, PNV ORTIZ signed for [facility]: MATERNAL CARE COORDINATION: CARE COORDINATION: PRODUCTION AIDE: ROUTINE OB: COVID-19 vaccine: Date(s) given: declined [...] days of scheduled delivery @ a main [facility] site H&P needed 30 days before delivery Date: PPTL: Yes No Is Medical assistance? Yes PPTL Permit signed: Date: Scanned date: CHECKLIST FOR SCHEDULING PROCEDURES: Call [phone] for [employer] and [phone] for [employer] Procedure: Induction Hospital: [facility] Unit: L&D Date & Time of procedure: 02/28/21 730 PM Feliciano Score if induction: Pertinent information: DVT left leg, therapeutic lovenox Gestational age on procedure date? 40 MD doing procedure: [facility] LB Date scheduled: 02/19/2021 when patient was 36w5d. Scheduling MD & RN: KASSANDRA/JENNIFER Notifications: Hospitalist Delivery-[facility] contact center associate notified through [employer] inbox? Yes [facility] MD contact center associate notified via [employer] inbox? Yes Primary MD notified via [employer] inbox? Yes Primary MD clinic called if not Jan? Not Applicable On [facility] calendar? Yes Care Coordination notified? Yes H&P/PPTL: PPTL permit signed? No H&P and Plan in chart? Yes [facility] appointment made for H&P with CONTRACTING EXECUTIVE within 30 days of procedure? Yes 02/01/21 Date: Regardless of vaccination status, all procedures require a COVID-19 test . Patients should be scheduled for a COVID-19 test within 3-5 days prior to the scheduled procedure to be done in main [facility] Clinic 02/26/21Date: * Patient notification: Patient notified of procedure date? Yes Written admission instructions given to patient via AVS? No PLAN OF CARE: per consult note on 01/29/21: care: ?? LUIS recommended:Yes ??Recommendations for Delivery: ?? Hospital Location:??[facility] ?? Timin wks gestation ?? Mode:IOL at 38 wks weeks - scheduled No ?? Provider: [facility] ?? Special considerations ? Discontinue Lovenox 24 hours prior to IOL or at the onset of contractions DVT complicating , third trimester 01/22/2021 02/28/2021 related leg pain i n third trimester, antepartum 01/22/2021 02/28/2021 Overview (01/22/2021): transfer from [facility] 32w 5d gestation of 01/22/2021 01/29/2021 Anxiety 11/01/2012 01/29/2021 Encounters Date Type Department Care Team Description 04/16/2024 Lab Requisition [facility] [phone] Kareen Barragan MD 04/04/2024 7:25 PM CDT - 04/05/2024 2:00 PM CDT Hospital Encounter [facility] [address] [place] [address] Jose Miguel Ureña MD [facility], [facility]ists Of [place], MD Renny Franco Megan Maureen, DO [place], Tigre Chapman MD RUQ pain (Primary Dx); Elevated LFTs; Calculus of gallbladder with biliary obstruction but without cholecystitis Discharge Disposition: Home Self Care 04/04/2024 10:00 AM CDT Office Visit [facility] [address] [place] [address] Juliocesar Plaza MD Consult (Heartburn started in - severe abdominal pain that radiates to back) 04/04/2024 Travel 01/16/2024 Orders Only [facility] Scanner 1 scan: (1-Ord) [facility], [facility], 01/16/2024 from Last 3 Months [...] Livin g 8 9 NADIA R,BG PRINCE KYLEE Reyes n, Neena Sanchez DO Complications:Precipitous la bor (< 3 hours) Delivery Location:Hospital ( [facility] [address] L&D TRIAGE) Comments:DVT [...] - 1.2 mg/dL 04/05/2024 10:38 AM CDT [facility] BILIRUBIN,DIRE CT 0.4(H) 0.0 - 0.2 mg/dL 04/05/2024 10:38 AM CDT [facility] BILIRUBIN,DEMETRIUS RECT 0.8 0.2 - 0.8 mg/dL 04/05/2024 10:38 AM CDT [facility] Blood BLOOD SPECIMEN / Unknown Butterfly / Unknown 04/05/2024 9:59 AM CDT 04/05/2024 10:07 AM CDT Jose Dias MD CHEMISTRY Performing Organization Address City/[facility]/ZIP Co de Phone Number [facility] [address] [address], [place] * (ABNORMAL) ALT AM (04/05/2024 9:59 AM CDT) ALT (SGPT) 642(H) 10 - 35 IU/L 04/05/2024 10:38 AM CDT [facility] Blood BLOOD SPECIMEN / Unknown Butterfly / Unknown 04/05/2024 9:59 AM CDT 04/05/2024 10:07 AM CDT Jose Dias MD CHEMISTRY Performing Organization Address City/[facility] Co de Phone Number [facility] [address] [place], [place] [id number], [place] * (ABNORMAL) AST AM (04/05/2024 9:59 AM CDT) AST (SGOT) 273(H) 10 - 35 IU/L 04/05/2024 10:38 AM CDT [facility] Blood BLOOD SPECIMEN / Unknown Butterfly / Unknown 04/05/2024 9:59 AM CDT 04/05/2024 10:07 AM CDT Jose Dias MD CHEMISTRY Performing Organization Address City/[facility]/ZIP Co de Phone Number [facility] [address] [place] [address], [place] * (ABNORMAL) Alk phosphatase AM (04/05/2024 8:13 AM CDT) ALK PHOSPHATASE 167(H) 35 - 104 IU/L 04/05/2024 8:51 AM CDT [facility] Blood BLOOD SPECIMEN / Unknown Venipuncture / Unknown 04/05/2024 8:13 AM CDT 04/05/2024 8:20 AM CDT Jose Dias MD CHEMISTRY [facility] [address] [place] [address], [place] * [place] ABDOMEN LIMITED RUQ PORTABLE [...] 11.0 thou/cu mm 04/04/2024 7:55 PM CDT [facility] RED BLOOD COUNT 5.15 4.00 - 5.20 mil/cu mm 04/04/2024 7:55 PM CDT [facility] HEMOGLOBIN 14.6 12.0 - 16.0 g/dL 04/04/2024 7:55 PM CDT [facility] HEMATOCRIT 45.0 33.0 - 51.0 % 04/04/2024 7:55 PM CDT [facility] MCV 87 80 - 100 fL 04/04/2024 7:55 PM CDT [facility] MCH 28.3 26.0 - 34.0 pg 04/04/2024 7:55 PM CDT [facility] MCHC 32.4 32.0 - 36.0 g/dL 04/04/2024 7:55 PM CDT [facility] RDW 12.4 11.5 - 15.5 % 04/04/2024 7:55 PM CDT [facility] PLATELET COUNT 309 140 - 440 thou/cu mm 04/04/2024 7:55 PM CDT [facility] MPV 9.5 6.5 - 11.0 fL 04/04/2024 7:55 PM CDT [facility] NRBC 0.0 % 04/04/2024 7:55 PM CDT [facility] ABS NRBC 0.0 thou /cu mm 04/04/2024 7:55 PM CDT [facility] % NEUT 37.7 % 04/04/2024 7:55 PM CDT [facility] % LYMPH 44.1 % 04/04/2024 7:55 PM CDT [facility] % MONO 12.9 % 04/04/2024 7:55 PM CDT [facility] % EOS 3.8 % 04/04/2024 7:55 PM CDT [facility] % BASO 1.3 % 04/04/2024 7:55 PM CDT [facility] % IMMATURE GRAN (METAS,MYELOS,AR OS) 0.2 % 04/04/2024 7:55 PM CDT [facility] ABSOLUTE NEUTROPHILS 2.3 1.7 - 7.0 thou/cu mm 04/04/2024 7:55 PM CDT [facility] ABSOLUTE LYMPHOCYTES 2.7 0.9 - 2.9 thou/cu mm 04/04/2024 7:55 PM CDT [facility] ABSOLUTE MONOCYTES 0.8 <0.9 thou/cu mm 04/04/2024 7:55 PM CDT [facility] ABSOLUTE EOSINOPHILS 0.2 <0.5 thou/cu mm 04/04/2024 7:55 PM CDT [facility] ABSOLUTE BASOPHILS 0.1 <0.3 thou/cu mm 04/04/2024 7:55 PM CDT [facility] ABSOLUTE IMMATURE GRANULOCYTES(MET ,MYELOS,PROS) 0.0 <0.3 thou/cu mm 04/04/2024 7:55 PM CDT [facility] Blood BLOOD SPECIMEN / Unknown Butterfly / Unknown 04/04/2024 7:37 PM CDT 04/04/2024 7:47 PM CDT Jose Miguel Ureña MD HEMATOLOGY Performing Organization Address [facility] Co de Phone Number [facility] [address] [place] [address], * PROTIME-INR (04/04/2024 7:37 PM CDT) INR 1.0 <1.3 04/04/2024 7:58 PM CDT [facility] PROTIME 11.9 10.6 - 12.4 sec 04/04/2024 7:58 PM CDT [facility] Blood BLOOD SPECIMEN / Unknown Butterfly / Unknown 04/04/2024 7:37 PM CDT 04/04/2024 7:47 PM CDT Narrative [facility] - 04/04/2024 7:58 PM CDT ?Therapeutic [...] Miguel Ureña MD HEMATOLOGY Performing Organization Address City/[facility]/ZIP Co de Phone Number [facility] [address] [place] [address], * LIPASE (04/04/2024 7:37 PM CDT) LIPASE 40.0 13.0 - 60.0 IU/L 04/04/2024 8:16 PM CDT [facility] Blood BLOOD SPECIMEN / Unknown Butterfly / Unknown 04/04/2024 7:37 PM CDT 04/04/2024 7:47 PM CDT Jose Miguel Ureña MD CHEMISTRY [facility] [address] [place] [address], * (ABNORMAL) HEPATIC FUNCTION PANEL (04/04/2024 7:37 PM CDT) Only the most recent of2 resultswithin the time period is included. ALBUMIN 4.9 4.0 - 4.9 g/dL 04/04/2024 8:35 PM CDT [facility] PROTEIN,TOTAL 8.0 6.0 - 8.0 g/dL 04/04/2024 8:35 PM CDT [facility] BILIRUBIN,TOTAL 1.2 0.0 - 1.2 mg/dL 04/04/2024 8:35 PM CDT [facility] BILIRUBIN,DIRECT 0.6(H) 0.0 - 0.2 mg/dL 04/04/2024 8:35 PM CDT [facility] BILIRUBIN,INDIRE CT 0.6 0.2 - 0.8 mg/dL 04/04/2024 8:35 PM CDT [facility] ALK PHOSPHATASE 195(H) 35 - 104 IU/L 04/04/2024 8:35 PM CDT [facility] ALT (SGPT) 915(H) 10 - 35 IU/L 04/04/2024 8:35 PM CDT [facility] AST (SGOT) 536(H) 10 - 35 IU/L 04/04/2024 8:35 PM CDT [facility] Blood BLOOD SPECIMEN / Unknown Butterfly / Unknown 04/04/2024 7:37 PM CDT 04/04/2024 7:47 PM CDT Jose Miguel Ureña MD CHEMISTRY [facility] [address] [place] [address], * BASIC METABOLIC PANEL (04/04/2024 7:37 PM CDT) SODIUM 141 136 - 145 mmol/L 04/04/2024 8:16 PM CDT [facility] POTASSIUM 4.0 3.5 - 5.1 mmol/L 04/04/2024 8:16 PM CDT [facility] CHLORIDE 106 98 - 107 mmol/L 04/04/2024 8:16 PM CDT [facility] CO2,TOTAL 23 22 - 29 mmol/L 04/04/2024 8:16 PM CDT [facility] ANION GAP 12 5 - 18 04/04/2024 8:16 PM CDT [facility] GLUCOSE 89 70 - 99 mg/dL 04/04/2024 8:16 PM CDT [facility] CALCIUM 9.5 8.6 - 10.0 mg/dL 04/04/2024 8:16 PM CDT [facility] BUN 12 6 - 20 mg/dL 04/04/2024 8:16 PM CDT [facility] CREATININE 0.74 0.50 - 0.90 mg/dL 04/04/2024 8:16 PM CDT [facility] BUN/CREAT RATIO 16 10 - 20 8:16 PM CDT [facility] eGFR >90 >90 mL/min/1.7 3m2 04/04/2024 8:16 PM CDT [facility] Comment:As of 2021, eG FR [...] PM CDT Jose Miguel Ureña MD CHEMISTRY [facility] [address] [place] [address], * ACUTE HEPATITIS PANEL (04/04/2024 10:40 AM CDT) HEPATITIS C ANTIBODY Non-Reactive Non-Reactive 04/05/2024 12:46 PM CDT [facility] Comment:Please note, per www .CDC.gov: If a patient is known to be at high risk of HCV infection, or is symptomatic, and the physician's suspicion of HCV infection is high, HCV RNA testing is often employed and is of diagnostic value, even after an initial negative anti-HCV test result. IGM ANTI HAV Non-Reactive Non-Reactive 04/05/20 12:46 PM CDT [facility] Comment:Anti-HAV IgM non-kristal ctive. Does not exclude the possibility of exposure to/or infection with HAV. Level of anti-HAV IgM may be below the cut-off in early infection. HBSAG Nonreactive Nonreactive 04/05/2024 12:46 PM CDT [facility] IGM ANTI HBC Non-Reactive Non-Reactive 04/05/20 12:46 PM CDT [facility] Comment:Anti-HBc IgM not det ected. Does not exclude the possibility of exposure to or infection with HBV. Blood BLOOD SPECIMEN / Unknown [facility] / Unknown 04/04/2024 10:40 AM CDT 04/04/2024 10:40 AM CDT Narrative [facility] - 04/05/2024 12:46 PM CDT Biotin supplements may cause clinically significant interference for this test assay. ??If interference is suspected, it is strongly recommended that biotin is discontinued for at least one week prior to retesting. Jose Miguel Ureña MD SEND OUTS Performing Organization Address City/[facility]/ZIP Co de Phone Number [facility] [address] [address], * SCAN-ULTRASOUND REPORT (01/16/2024 12:00 AM CDT) Anatomical Region Laterality Modality Other Scanner OTHER * HPV HIGH RISK (03/27/2023 4:20 PM CDT) TYPE 16 Negative Negative 03/31/2023 5:32 AM CDT [facility] TYPE 18 Negative Negative 03/31/2023 5:32 AM CDT [facility] OTHER HIGH RISK TYPES Negative Negative 03/31/2023 5:32 AM CDT [facility] Other (Cervical) 03/27/2023 4:20 PM CDT 03/29/2023 2:49 PM CDT Narrative [facility] - 03/31/2023 5:32 AM CDT HPV types 16, 18, 31, 33, 35, 39, 45, 51, 52, 56, 58, 59, 66 and 68 DNA were undetectable or below the pre-set threshold. Methodology: Bacilio Yvonne 4800 HPV Test Celena Mccabe MD MICROBIOLOGY Performing Organization Address [facility] Co de Phone Number [facility] [address] [address], * HIV EXTERNAL (08/14/2020) EXTERNAL HIV Negative [facility] Blood BLOOD SPECIMEN / Unknown Tangela Munoz PA-C LABORATORY [facility] [place] [id number] [place] [address] from Last 3 Months or Most Recently [...] Comments Code Status Discussion: Discussed Care Teams Engraver Block Relationship Specialty Start Date End Date Iris Rapp MD [address] [place] [address] PCP - General Obstetrics and Gynecology 01/28/21
--- OUTSIDE RECORDS SUMMARY | 2024-04-16 10:53 | XMS_ITS | Referral Summary ---
Author Organization [facility] Address [address] [place] [address] Care Team Providers Care Buckle And Button Maker Name Role Phone No Ref-Primary, Physician Primary Care Provider Peg Oleary MD Unavailable [phone] Allergies No known active allergies Medications [...] on file Legal Sex Female 4:05 PM [employer] WORK[employer] Gender Identity Not on file Sexual Orientation Not on file Last Filed Vital Signs Vital Sign Reading Time Taken Comments Blood Pressure 119/82 07/18/2023 12:05 PM [employer] Pulse 78 07/18/2023 12:05 PM [employer] WORK[employer] Temperature - - Respiratory Rate 18 07/18/2023 12:05 PM [employer] CELL[employer] WORKER Oxygen Saturation 99% 07/18/2023 12:05 PM [employer] CELL[employer] WORKER Inhaled Oxygen Concentration - - Weight 105.5 kg (232 lb 8 oz) 07/18/2023 12:05 P M [employer]WERY CELL[employer] WORKER Height 180.3 cm (5' 11) 07/18/2023 12:05 PM [employer] CELL[employer] WORKER Body Mass Index 32.43 07/18/2023 12:05 PM BREWERY CELL[employer] WORKER Plan of Treatment Not on file Insurance [facility] Care Teams Buckle And Button Maker Relationship Specialty Start Date End Date No Ref-Primary, Physician PCP - General 06/15/23 Peg Oleary MD [address] [place] [address] Assigned OBGYN Provider 08/04/23
== END 2024-04-16 10:48 | disposition home or self-care (01) ==
PROVIDERS: PCP Family Medicine; Visit Provider Surgery
DX: R79.89 Other specified abnormal findings of blood chemistry (principal); K76.0 Fatty (change of) liver, not elsewhere classified
CPT/HCPCS: 74181

== ENCOUNTER 2024-09-27 10:58 | Outpatient (CLI) | payer MEDICAID, SELFPAY | END 2024-09-27 10:59 | disposition home or self-care (01) | LOC: NFLDREF 10:59 | PROVIDERS: PCP Family Medicine; Visit Provider Registered Nurse | DX: R35.0 Frequency of micturition (principal); N89.8 Other specified noninflammatory disorders of vagina | CPT/HCPCS: 87086; 87491; 87591 ==

== ENCOUNTER 2024-09-27 11:01 | Outpatient (CLI) | payer MEDICAID, SELFPAY ==
[2024-09-30 12:33] LABS: Bacterial Vaginosis* POSITIVE (Negative); Candida glab/krus NOT DETECTED (No Detected); Candida species NOT DETECTED (No Detected); Trichomonas vaginalis NOT DETECTED (No Detected)
== END 2024-09-27 11:02 | disposition home or self-care (01) ==
LOC: LAB 11:01
PROVIDERS: PCP Family Medicine; Visit Provider Registered Nurse
DX: N89.8 Other specified noninflammatory disorders of vagina (principal); R35.0 Frequency of micturition
CPT/HCPCS: 81513; 87481; 87661

== ENCOUNTER 2024-10-25 14:10 | Outpatient (CLI) | payer MEDICAID, SELFPAY | END 2024-10-25 14:11 | disposition home or self-care (01) | LOC: NFLDREF 11-01 00:28 | PROVIDERS: PCP Family Medicine; Referring Provider Family Medicine; Visit Provider Registered Nurse | DX: N30.90 Cystitis, unspecified without hematuria (principal) | CPT/HCPCS: 87086 ==